=== PATIENT | male | born 1935 | race Caucasian/White ===

== ENCOUNTER 2017-11-18 05:26 | Inpatient (IN) | payer MEDICARE, OTHER, SELFPAY ==
[2017-11-05 13:20] VITALS: BP 139/77; PULSE 66; RESP 18; TEMP 36.9; O2SAT 96; BMI 45.0
--- NOTE | 2017-11-05 13:52 | RAD_ITS ---
STUDY: X-RAY CHEST REASON FOR EXAM: Male, 82 years old. 2 week history of cough. TECHNIQUE: PA and lateral views of the chest. COMPARISON: None. FINDINGS: Mild degree of increased markings at the lung bases worse at the right lung base suggestive of atelectasis and/or early infiltrate. There is no demonstrated pleural abnormality. Sternal cerclage wires and vascular clips are present from a prior sternotomy and coronary artery bypass graft procedure (CABG). Normal mediastinum and giovanny. Normal visualized pulmonary arteries. There is atherosclerotic calcification of the aortic arch with tortuosity. There are degenerative changes of the visualized thoracic spine. Normal visualized ribs, clavicles, and shoulders. There is no demonstrated abnormality of the visualized soft tissue structures of the upper abdomen. RAD/Chest PA and Lateral IMPRESSION: Increased markings at the lung bases worse on the right side suggestive of bibasilar atelectasis and/or early infiltrates follow-up is recommended. Electronically Signed: Saurav Boyer MD at 14:39 EST Tel [phone], Service support ,
--- NOTE | 2017-11-05 13:52 | SDCEKG_ITS ---
Test Reason : Blood Pressure : / mmHG Vent. Rate : 062 BPM Atrial Rate : 062 BPM P-R Int : 194 ms QRS Dur : 158 ms QT Int : 470 ms P-R-T Axes : 055 009 033 degrees QTc Int : 477 ms Normal sinus rhythm Right bundle branch block Abnormal ECG Confirmed by THERESA LAMBERT, NEAL ([id number]), order editor SUZANNE CALLAHAN ([id number]) on 11/07/2017 1:08:33 PM Referred By: Akin Kong Confirmed By:NEAL CARDENAS MD
[2017-11-05 14:41] LABS: Hematocrit 40.8 % (40-54); Mean Corp Hgb Conc 31.9 g/gl (32-36); Mean Corpuscular Hgb 28.8 pg (27.0-32.0); Mean Corpuscular Volume 90.5 fL (80-94); Mean Platelet Vol. 10.3 fl (6.2-12.0); Platelet Count 206 K/mm3 (150-450); RBC Distribution Width CV 14.7 % (11.6-14.6); RBC Distribution Width SD 48.6 fl (35.1-43.9); Red Blood Count 4.51 M/mm3 (4.6-6.2); Scan Indicated on CBC? Y/N NO; White Blood Count 7.2 K/mm3 (4.4-11.0)
[2017-11-05 14:54] LABS: Anion Gap 11 (5-15); BUN 21 mg/dL (7-18); BUN/Creat Ratio 15.1 RATIO (10-20); Calcium,Total 8.3 mg/dL (8.5-10.1); Chloride 106 mmol/L (98-107); Creatinine, Serum 1.39 mg/dL (0.70-1.30); EST Glomerular Filtration Rate 52 mL/min (>60); Est Glom Filt Rate - Afr Amer 63 mL/min (>60); Estimated Creatinine Clearance 38.97 ml/min; Glucose 162 mg/dL (70-110); Potassium 4.2 mmol/L (3.5-5.1); Sodium Level 140 mmol/L (136-145)
[2017-11-18] VITALS (14 sets, daily range): BP systolic 128–167; BP diastolic 52–94; PULSE 50–88; RESP 16–18; TEMP 36.3–36.7; O2SAT 95–100; BMI 45.0
[2017-11-18] MEDS: Celecoxib 200 MG Capsule 400 MG PO (06:23)
[2017-11-18] MEDS: Acetaminophen 500 MG Tablet 1000 MG PO ×3 (06:23→21:59)
[2017-11-18] MEDS: oxyCODONE HCl Cr 10 MG Tablet PO (06:23)
--- NOTE | 2017-11-18 07:01 | EKG12_ITS ---
Test Reason : CP Blood Pressure : / mmHG Vent. Rate : 053 BPM Atrial Rate : 053 BPM P-R Int : 148 ms QRS Dur : 142 ms QT Int : 500 ms P-R-T Axes : 016 023 023 degrees QTc Int : 469 ms Sinus bradycardia Right bundle branch block Septal infarct , age undetermined Abnormal ECG When compared with ECG of 18-NOV-2017 07:06, MANUAL COMPARISON REQUIRED, DATA IS UNCONFIRMED Confirmed by SOLO LAMBERT, NATHALIE ([id number]), web editor SUZANNE CALLAHAN ([id number]) on 11/26/2017 8:50:41 AM Referred By: Akin Kong Confirmed By:NATHALIE BANDA MD
--- NOTE | 2017-11-18 07:38 | OP.PCM_ITS ---
Report of Operation Date of Procedure: 11/18/17 Pre-Operative Diagnosis: Severe end-stage osteoarthritis left knee Post-Operative Diagnosis: Severe end-stage osteoarthritis left knee Surgery/Procedure Performed:: Total knee arthroplasty left Description of Surgical Findings:: Periarticular osteophytes, subchondral sclerosis and varus alignment consistent with tricompartmental osteoarthritis information technology coordinator: [place]cho[place] Type of Anesthesia:: General Anesthesiologist: Chris Haile Specimen's removed: Bone and soft tissue Estimated Blood Loss (mL): 100 Fluids Replaced: See anesthesia report Description of Procedure: Implants: [place] triathlon size 6 posterior stabilized femur, 6 tibia, 35 x 10 mm patella all cemented with Simplex. 9 mm posterior stabilized articulating surface Indications: Patient has severe end-stage osteoarthritis diagnosed via x-rays in the knee. They have failed all forms of conservative measures including activity modification, injections, anti-inflammatories, use of assistive device. The patient has pain that affects on a daily basis and prevents him from doing things that they enjoyed. They have elected to undergo the above procedure. The risks of the procedure were discussed at length and their questions were answered. Procedure description: The patient was greeted in the preoperative area. The left knee was then marked with a surgical marker. Patient was then taken to or [address]. They were administered a dose of antibiotics as well as tranexamic acid. Once adequate anesthesia was obtained and airway was secured to placed in supine position on the operating room table. A well-padded tourniquet was placed on the affected extremity. Leg was then prepped and draped in the usual sterile fashion from the knee down. Ioban was used on the skin. Surgical timeout was then performed and confirmed with all present. Six-inch Esmarch was used to examine the limb and tourniquet was then inflated to 250 mmHg. A longitudinal incision was then planned and carried out in the anterior aspect of the knee. The dissection was then carried the length of the incision the extensor mechanism was identified. Standard medial parapatellar arthrotomy was then performed revealing severe eburnation of bone and periarticular osteophytes. There is complete loss of cartilage especially in the medial compartment with varus alignment. Anterior fat pad was removed for visualization purposes and the anterior medial aspect of the tibia was skeletonized for exposure to the knee. The knee was then flexed the patella was inverted. Opening reamer was then used in the femur approximately 1 cm anterior to the attachment of the PCL. The intramedullary valgus wand was then placed in the femur set at 5? of valgus. The distal femoral cutting jig was then applied to the femur with anticipated resection of approximately 8 mm. This was then made with a oscillating saw. The sizing guide was then placed referencing off the posterior condyles and also reference off the epicondylar axis. This was measured and the appropriate size 4-in-1 cutting jig was then applied to the distal femur. Anterior posterior cuts were made followed by the anterior and posterior chamfer cuts. These bony pieces and fragments were removed and placed on the back table. Posterior retractor was then utilized and the tibia was subluxed anteriorly. Extramedullary tibial alignment jig was then applied to the tibia referencing off the medial one third of the tibial tubercle the anterior tibial spine the middle aspect of the tibiotalar joint. Also reference off patient's [place]. The tibial cutting jig was then pinned with anticipated resection of 2 mm off of the deficient medial tibial condyle. This cut was made with the oscillating saw. Once this was complete a laminar anti air warfare operations officer was utilized in both medial lateral meniscus were removed and a posterior capsular osteophytes were also removed. Posterior capsule release was performed in the posterior capsule as well as the geniculate arteries are treated with the aqua Libby. The tibia was incised and the appropriate sized tibial tray was then pinned. The femoral box cutting jig was then applied to the femur and the box was prepared removing a portion of the intercondylar notch. The femoral trial was then placed and the knee was trialed. Full flexion-extension were easily achieved. The knee seemed to balance quite nicely. Any remaining osteophytes were removed at this time. Once this was complete the patella was everted and the Dorcas patella reaming device was then utilized the patella was then placed in the appropriate jig and reamer was then used to remove approximately 9 mm of the undersurface of the patella. A soft tissue remaining was in the way was removed and patella trial was then placed listed maintain excellent tracking using the no thumbs technique. The tibial tray at this point was punched to accommodate the fins of the final implant. At this point cement was mixed on the back table. The trial components were removed and the knee was copiously irrigated. Did use a cocktail of injection for postoperative pain control. The final components were then cemented in the standard fashion and excess cement was removed with cement removal tools and patellar clamp is placed in the patella. As the cement had cured in full extension tourniquet was deflated and hemostasis was perfect with Bovie cautery as well as the aqua Manus. Needle is once again trialed with different size polyethylenes to ensure the full range of motion was achieved as well as excellent balancing ligamentously was achieved. At this point a quick Betadine bath was performed followed by copious irrigation. Final implant was then inserted locking mechanism was engaged and confirmed to be locked. The arthrotomy was then closed with #1 Vicryl aggravate type fashion interrupted. Subcutaneous tissue was closed with 0 Vicryl and surgical janiya were placed in the skin. A occlusive silver impregnated dressing was then applied followed by well-padded sterile dressing secured with an Reinier wrap. The patient was taken to the PACU in stable condition. No complications known at this time. Postoperatively we will maintain standard total knee postoperative protocol. The use of the physician photo studio assistant was integral during this procedure. They assisted with positioning placement of the tourniquet retracting closure and placement of the dressing. The procedure would have been much more difficult without their expertise and assistance - Complications None known - Admit VTE Documentation VTE Present on Admission: Yes VTE Mechan Device Prophylaxis: SCD's, Thigh High SEAN Hose VTE Pharm Prophylaxis ordered?: Yes
[2017-11-18] MEDS: Lactated Ringers 1,000 ML 125 ML IV ×2 (14:55→22:45)
[2017-11-18] MEDS: Aspirin 325 MG Tablet PO (14:55)
--- NOTE | 2017-11-18 14:56 | NURSING ---
computer in room not working, turned off, turned back on, sys aid placed
--- NOTE | 2017-11-18 16:02 | CASEMGMT ---
Social Work Note Updated by RN LYN Munguia - that pt is requesting TCU. Left vm for [facility] and vm on referral line. Will await a return phone call with confirmation. SW to continue to follow and assist with discharge planning. Plan: TBD. Maranda Lala, CAMPUS POLICE OFFICER RESUME SPECIALIST
--- NOTE | 2017-11-18 16:43 | CASEMGMT ---
Social Work Note Return phone call from [facility] stating that she can accept the pt on . Placed Transfer summary for orthopedics surgeon to sign on chart. SW to continue to follow and assist with discharge planning as needed. Plan: TCU for rehabilitation. Maranda Lala MSW PHOTOENGRAVING PROOFER
[2017-11-18] MEDS: Furosemide 40 MG Tablet PO (22:00)
[2017-11-18] MEDS: Senna/Docusate Sodium 1 Tablet 2 TABLET PO (22:00)
[2017-11-18] MEDS: Isosorbide Mononitrate 60 MG Tablet PO (22:01)
[2017-11-18] MEDS: Losartan Potassium 100 MG Tablet PO (22:01)
[2017-11-18] MEDS: Atenolol 50 MG Tablet PO (22:01)
[2017-11-19] MEDS: Ketorolac 15 MG/ML Vial IV (00:45)
[2017-11-19 03:00] VITALS: RESP 18; O2SAT 96
[2017-11-19 03:20] VITALS: BP 145/60; PULSE 62; RESP 18; TEMP 36.6; O2SAT 97
[2017-11-19] MEDS: Acetaminophen 500 MG Tablet 1000 MG PO ×3 (05:15→23:06)
[2017-11-19] MEDS: oxyCODONE 5 MG Tablet PO (05:15)
--- NOTE | 2017-11-19 08:02 | PN.ORTHO_ITS ---
Subjective: Patient sitting at bedside with his eating breakfast. Patient states pain is well-managed. Patient has no complaints, denies chest pain, shortness breath , calf pain, nausea vomiting. Objective: Dressing is clean dry intact. Vital signs labs within normal limits. Patient is neurovascular intact, afebrile. Negative signs and symptoms of DVT. Patient is no respiratory distress - Physical Exam General: Alert, Oriented x3, Cooperative HEENT: PERRLA Oral: Moist Mucosa Neurological: Cranial nerves II-XII grossly intact Psych/Mental Status: Normal Affect, Alert and oriented to time, place, person, mood and affect Vital Signs Temp Pulse Resp BP Pulse Ox 97.9 F 62 18 145/60 H 97 11/19/17 03:20 11/19/17 03:20 11/19/17 03:20 11/19/17 03:20 11/19/17 03:20 Oxygen Flow Rate 1 Oxygen Delivery Method CPAP Weight: 130.5 kg Body Mass Index (BMI) 45.0 Intake and Output for Last 24 Hours 11/17/17 11/18/17 11/19/17 23:59 23:59 23:59 Intake Total 3550 / 3550 1625 / 1625 Output Total 50 / 50 750 / 750 Balance 3500 / 3500 875 / 875 Assessment/Plan Status post left total knee arthroplasty Plan 1. Continue pain medications as prescribed 2. Begin physical therapy today, weight-bear as tolerated, with walker 3. Aspirin 325 mg 1 p.o. every 12 hours ?30 days for postop DVT prophylaxis 4. Possible discharge home tomorrow 5. Encourage incentive spirometry
[2017-11-19] MEDS: Aspirin 325 MG Tablet PO ×2 (08:12→17:42)
[2017-11-19 08:13] VITALS: BP 120/54; PULSE 60; RESP 18; TEMP 37.6; O2SAT 93
[2017-11-19] MEDS: Senna/Docusate Sodium 1 Tablet 2 TABLET PO ×2 (10:23→22:10)
[2017-11-19] MEDS: Ascorbic Acid 500 MG Tablet 1000 MG PO (10:23)
[2017-11-19] MEDS: Famotidine 20 MG Tablet PO (10:23)
[2017-11-19] MEDS: Furosemide 40 MG Tablet PO (10:23)
[2017-11-19] MEDS: Isosorbide Mononitrate 60 MG Tablet PO ×2 (10:23→22:10)
[2017-11-19 10:25] VITALS: PULSE 64
[2017-11-19 14:15] VITALS: BP 124/51; PULSE 69; RESP 18; TEMP 36.8; O2SAT 97
[2017-11-19 14:28] VITALS: BMI 45.0
[2017-11-19 20:15] VITALS: BP 131/61; PULSE 78; RESP 16; TEMP 36.8; O2SAT 93
[2017-11-19] MEDS: Losartan Potassium 100 MG Tablet PO (22:30)
[2017-11-19] MEDS: Atenolol 50 MG Tablet PO (23:05)
[2017-11-20] VITALS (7 sets, daily range): BP systolic 123–149; BP diastolic 58–81; PULSE 58–94; RESP 14–18; TEMP 36.6–37.1; O2SAT 94–98
[2017-11-20] MEDS: Acetaminophen 500 MG Tablet 1000 MG PO ×3 (06:20→22:23)
[2017-11-20] MEDS: oxyCODONE 5 MG Tablet PO ×2 (06:27→15:44)
[2017-11-20] MEDS: Ascorbic Acid 500 MG Tablet 1000 MG PO (09:38)
[2017-11-20] MEDS: Isosorbide Mononitrate 60 MG Tablet PO ×2 (09:38→22:23)
[2017-11-20] MEDS: Aspirin 325 MG Tablet PO ×2 (09:39→15:42)
[2017-11-20] MEDS: Famotidine 20 MG Tablet PO (09:41)
[2017-11-20] MEDS: Senna/Docusate Sodium 1 Tablet 2 TABLET PO ×2 (09:41→22:24)
[2017-11-20] MEDS: Furosemide 40 MG Tablet PO (09:41)
--- NOTE | 2017-11-20 13:05 | PCM.PN.ORT ---
Subjective: Patient sitting at lunch, pain well-managed, no other complaints. Patient ready for discharge to [facility] transitional care unit. Patient stable, must wait 1 additional day before discharge for insurance purposes. Objective: Dressings clean dry intact, vital signs labs within normal limits. Patient is afebrile, neurovascular is intact. Negative signs and symptoms of DVT. - Physical Exam General: Alert, Oriented x3, Cooperative HEENT: PERRLA Oral: Moist Mucosa Neurological: Cranial nerves II-XII grossly intact Psych/Mental Status: Normal Affect, Alert and oriented to time, place, person, mood and affect Vital Signs Temp Pulse Resp BP Pulse Ox 97.9 F 58 L 16 123/69 H 96 11/20/17 09:33 11/20/17 09:35 11/20/17 09:33 11/20/17 09:33 11/20/17 09:33 Oxygen Flow Rate 1 Oxygen Delivery Method Room Air Weight: 130.5 kg Body Mass Index (BMI) 45.0 Intake and Output for Last 24 Hours 11/18/17 11/19/17 11/20/17 23:59 23:59 23:59 Intake Total 3550 / 3550 1625 / 1625 Output Total 50 / 50 750 / 750 Balance 3500 / 3500 875 / 875 Assessment/Plan Status post left total knee arthroplasty Plan 1. Continue pain medications as prescribed 2. Continue physical therapy physical therapy today, weight-bear as tolerated, with walker 3. Aspirin 325 mg 1 p.o. every 12 hours ?30 days for postop DVT prophylaxis 4. Possible discharge to [facility] transitional care unit tomorrow 5. Encourage incentive spirometry
--- NOTE | 2017-11-20 13:20 | PCM.DC.TKR ---
Discharge Diet: No Restrictions Discharge Activity: May Not Drive, May Shower, Use Walker May shower in (days): 1 Ice area for (Minutes): 20 - each hour while awake. Weight Bearing Status: Weight bearing as tolerated Elevate: Operative Extremity Additional Activity Instructions:: Wear elastic stockings for 2 weeks after your surgery. Call your doctor if your incision/area has: Continuous Slow Oozing, Sudden Increased Bleeding, Increased Pain/ Swelling, Increased Redness, Foul Smelling Discharge Call your doctor if you observe: Fever of 101 or Higher, Coldness, Increased Pain - in extremity, Numbness or Tingling, Change in Color, Calf discomfort, Uncontrolled pain Change Dressing in (Days):: 9 - and daily as needed. Cleanse incision/area with: Soap & Water Allergies/Adverse Reactions: Allergies No Known Allergies Allergy (Verified 11/05/17 13:06) Medications to take at Discharge Ascorbic Acid [Vitamin C] 1,000 mg PO DAILY 11/05/17 Atenolol [Tenormin (beta maikol)] 50 mg PO QHS 11/05/17 Cholecalciferol (Vitamin D3) [Vitamin D3] 2,000 unit PO DAILY 11/05/17 Furosemide [Lasix] 40 mg PO DAILY 11/05/17 Isosorbide Mononitrate [Imdur] 60 mg PO BID 11/05/17 Lactobacillus Combo No.11 [Probiotic] 1 each PO DAILY 11/05/17 Losartan Potassium [Cozaar] 100 mg PO QHS 11/05/17 Meloxicam [Mobic] 15 mg PO DAILY 11/05/17 Methylsulfonylmethane [MSM] 1,200 mg PO DAILY 11/05/17 Omeprazole [Prilosec] 20 mg PO DAILY 11/05/17 Ubidecarenone/Vitamin E Mixed [Yox69-Fxu E 200 mg-20 Unit Sfg] 1 each PO DAILY 11/05/17 Acetaminophen [Tylenol] 1,000 mg PO Q8 #90 tab 11/20/17 Aspirin 325 mg PO BIDCM #60 tab 11/20/17 MorphINE [Ms Contin] 15 mg PO BID 7 Days #14 tab 11/20/17 Oxycodone [Oxyir] 5 - 10 mg PO Q6H PRN PRN 7 Days #60 tab 11/20/17 The following prescriptions were given: Oxycodone [Oxyir] 5 - 10 mg PO Q6H PRN PRN 7 Days #60 tab PRN Reason: Mod-Severe Pain (4-07/30) Acetaminophen [Tylenol] 1,000 mg PO Q8 #90 tab Aspirin 325 mg PO BIDCM #60 tab MorphINE [Ms Contin] 15 mg PO BID 7 Days #14 tab Primary Care Physician: Yo Peng Jr., MD [Primary Care Provider] - Please Follow Up With: Akin Kong, DO When: see pink sheet
[2017-11-20] MEDS: Atenolol 50 MG Tablet PO (22:23)
[2017-11-20] MEDS: Losartan Potassium 100 MG Tablet PO (22:23)
[2017-11-21 02:49] VITALS: BP 140/63; PULSE 64; RESP 14; TEMP 36.6; O2SAT 95
[2017-11-21] MEDS: Acetaminophen 500 MG Tablet 1000 MG PO ×2 (06:01→14:15)
[2017-11-21 07:05] VITALS: O2SAT 91
[2017-11-21 09:55] VITALS: BP 124/75; PULSE 60; RESP 18; TEMP 36.8; O2SAT 98
[2017-11-21] MEDS: Aspirin 325 MG Tablet PO (10:02)
[2017-11-21] MEDS: Senna/Docusate Sodium 1 Tablet 2 TABLET PO (10:02)
[2017-11-21] MEDS: Isosorbide Mononitrate 60 MG Tablet PO (10:02)
[2017-11-21] MEDS: Furosemide 40 MG Tablet PO (10:02)
[2017-11-21] MEDS: Famotidine 20 MG Tablet PO (10:02)
[2017-11-21] MEDS: Ascorbic Acid 500 MG Tablet 1000 MG PO (10:02)
[2017-11-21 14:36] VITALS: BP 126/72; PULSE 72; RESP 18; TEMP 36.7; O2SAT 97
== END 2017-11-21 14:37 | disposition skilled nursing facility (03) | DRG 470 ==
PROVIDERS: Admitting Provider Orthopaedic Surgery; Family Provider Internal Medicine; PCP Internal Medicine; Visit Provider Orthopaedic Surgery
PROC: 0SRD0J9 Replacement of Left Knee Joint with Synthetic Substitute, Cemented, Open Approach (ICD-10-PCS; CPT 27447; principal; 2017-11-18 06:50)
DX: M17.12 Unilateral primary osteoarthritis, left knee (principal); Z95.1 Presence of aortocoronary bypass graft; E66.01 Morbid (severe) obesity due to excess calories; Z68.42 Body mass index [BMI] 45.0-49.9, adult; I10 Essential (primary) hypertension; I25.10 Atherosclerotic heart disease of native coronary artery without angina pectoris; Z87.891 Personal history of nicotine dependence
CPT/HCPCS: 80048; 85027; 87081; 93005; 97110; 97116; 97162; 97165; 97530; 97535; J7120; J2405

== ENCOUNTER 2017-11-21 14:46 | Inpatient (IN) | payer MEDICARE, OTHER, SELFPAY ==
[2017-11-21 14:36] VITALS: BP 126/72
[2017-11-21 15:01] VITALS: BP 102/61; PULSE 62; RESP 20; TEMP 37; O2SAT 94
[2017-11-21 15:13] VITALS: BMI 44.7
[2017-11-21 16:05] VITALS: BMI 44.8
[2017-11-21] MEDS: oxyCODONE 5 MG Tablet PO (16:33)
[2017-11-21 16:41] VITALS: PULSE 60
[2017-11-21] MEDS: Aspirin 325 MG Tablet PO (18:09)
[2017-11-21] MEDS: Isosorbide Mononitrate 60 MG Tablet PO (18:09)
--- NOTE | 2017-11-21 18:10 | NURSING ---
notified dr. tre cruz swelling in left leg. order for doppler to [facility] in am
--- NOTE | 2017-11-21 19:43 | PCM.HP.STD ---
Problem List (1) Osteoarthritis of left knee Status: Chronic (2) Coronary artery disease Status: Chronic (3) Vitamin D deficiency Status: Chronic (4) Chronic systolic heart failure Status: Chronic (5) GERD (gastroesophageal reflux disease) Status: Chronic (6) Hypertension Status: Chronic (7) Myocardial infarction Status: Chronic (8) Atrial fibrillation Status: Chronic (9) Obstructive sleep apnea Status: Chronic (10) Prostate cancer Status: Chronic History of Present Illness Date of Admission: 11/21/17 Chief Complaint: Here for rehabilitation, strengthening, prior to discharge home with significant other. The patient is a 82 year old Male with below past medical history hospitalized for left total knee arthroplasty 11/18/[address] Akin Kong. 11/21/2017 Admit to TCU for rehabilitation, strengthening, prior to discharge home with significant other. Past Medical History Past Medical History (Chronic Problems): Chronic Problems Osteoarthritis of left knee (Chronic) Coronary artery disease (Chronic) Vitamin D deficiency (Chronic) Chronic systolic heart failure (Chronic) GERD (gastroesophageal reflux disease) (Chronic) Hypertension (Chronic) Myocardial infarction (Chronic) Atrial fibrillation (Chronic) Obstructive sleep apnea (Chronic) Prostate cancer (Chronic) Allergies No Known Allergies Allergy (Verified 11/05/17 13:06) Home Medications: Ambulatory Orders Medication Instructions Recorded Ascorbic Acid [Vitamin C] 1,000 mg PO DAILY 11/05/17 Atenolol [Tenormin (beta maikol)] 50 mg PO QHS 11/05/17 Cholecalciferol (Vitamin D3) 2,000 unit PO DAILY 11/05/17 [Vitamin D3] Furosemide [Lasix] 40 mg PO DAILY 11/05/17 Isosorbide Mononitrate [Imdur] 60 mg PO BID 11/05/17 Lactobacillus Combo No.11 1 each PO DAILY 11/05/17 [Probiotic] Losartan Potassium [Cozaar] 100 mg PO QHS 11/05/17 Meloxicam [Mobic] 15 mg PO DAILY 11/05/17 Methylsulfonylmethane [MSM] 1,200 mg PO DAILY 11/05/17 Omeprazole [Prilosec] 20 mg PO DAILY 11/05/17 Ubidecarenone/Vitamin E Mixed 1 each PO DAILY 11/05/17 [[id number]-Lvz E 200 mg-20 Unit Sfg] Acetaminophen [Tylenol] 1,000 mg PO Q8 #90 tab 11/20/17 Aspirin 325 mg PO BIDCM #60 tab 11/20/17 MorphINE [Ms Contin] 15 mg PO BID 7 Days #14 tab 11/20/17 Oxycodone [Oxyir] 5 - 10 mg PO Q6H PRN PRN 7 Days 11/20/17 #60 tab Surgical History: coronary bypass surgery, total knee arthroplasty - Left., - - Cardiac stents x 3. Psychiatric History: No pertinent psych hx Lives: Spouse/ Significant Other Smoking Status: Former smoker Tobacco Use: Non-smoker Alcohol: Occasional Drugs: None - *Family History Maternal History Items: No pertinent history Paternal History Items: No pertinent history Review of Systems Constitutional: Denies: Chills, Fever, Weight Change HEENT: Denies: Head Aches, Sinus Congestion, Sinus Drainage Cardiovascular: Denies: Chest Pain, Palpitations Respiratory: Denies: Cough, Shortness of breath at rest, Sputum production Gastrointestinal: Denies: Abdominal Pain, Nausea, Vomiting Genitourinary: Denies: Dysuria Musculoskeletal: Reports: Joint Pain - Left knee pain.. Denies: Joint Tenderness Skin: Denies: Rash, Wounds Neurological: Denies: Numbness, Tingling, Focal weakness Psychiatric: Denies: Anxiety, Depression, Homicidal Ideations, Suicidal Ideations Hematologic/ Lymphatic: Denies: Easy Bruising, Easy Bleeding VTE Information - Inpt Only VTE Present on Admission: No VTE Mechan Device Prophylaxis: Knee High SEAN Hose VTE Pharm Prophylaxis ordered?: Yes - Physical Exam General: Alert, Oriented x3, Cooperative HEENT: Atraumatic, PERRLA, EOMI, Normocephalic Neck: Supple, No JVD, Negative Carotid Bruits Lungs: Clear to auscultation, Normal air movement Cardiovascular: Regular rate, No murmurs Abdomen: Bowel Sounds Present, Soft, Non Tender Extremities: Capillary Refill Less than 3 Seconds, Edema - 2+ pitting edema LLE, 1+ pitting edema RLE. Skin: No rashes, No breakdown, Incision - Left knee clean, dry, intact. Musculoskeletal: No Tenderness to Palpation of Joints or Extremities Neurological: Cranial nerves II-XII grossly intact Psych/Mental Status: Normal Affect, Appropriate Vital Signs Temp Pulse Resp BP Pulse Ox 98.6 F 60 20 H 102/61 94 11/21/17 15:01 11/21/17 16:41 11/21/17 15:01 11/21/17 15:01 11/21/17 15:01 Oxygen Delivery Method Room Air Weight: 129.7 kg Body Mass Index (BMI) 44.7 Intake and Output for Last 24 Hours 11/19/17 11/20/17 11/21/17 23:59 23:59 23:59 Intake Total 360 / 360 Balance 360 / 360 Assessment/Plan 82 year old male with below past medical history hospitalized for left total knee arthroplasty 11/18/[address] Akin Kong, admitted to TCU for rehabilitation, strengthening, prior to discharge home with significant other. Debility - PT/OT. Pain - Tylenol 1000MG Q8H, MS Contin 15MG twice daily, Oxycodone 5-10MG Q6H PRN moderate to severe pain. Bowel - Miralax 17GM daily, Senna/colace 2 tablets BID, Dulcolax 10MG PO daily PRN, Magnesium citrate 300ML PO x 1 dose. Pneumonia vaccination - Administer Prevnar 13 and/or Pneumovax 23 as necessary. DVT prophylaxis - Aspirin 325MG BID. Vitamin C deficiency - Vitamin C 1000MG daily. Coronary Artery Disease - Atenolol 50MG QHS, Losartan 100MG QHS, Isosorbide MN 60MG BID. Vitamin D deficiency - D3 2000IU daily. Nutrition - Ensure Enlive 120ML 4x/day. Chronic systolic heart failure - Atenolol 50MG QHS, Losartan 100MG QHS, Isosorbide MN 60MG BID, Lasix 40MG daily. GI prophylaxis - Lactobacillus 1 tablet daily. Osteoarthritis - Meloxicam 15MG daily. GERD - Pantoprazole 20MG daily Edema - Doppler ultrasound of bilateral lower extremities in AM to evaluate for DVT.
--- NOTE | 2017-11-21 19:56 | HP.PCM_ITS ---
Problem List (1) Osteoarthritis of left knee Status: Chronic (2) Coronary artery disease Status: Chronic (3) Vitamin D deficiency Status: Chronic (4) Chronic systolic heart failure Status: Chronic (5) GERD (gastroesophageal reflux disease) Status: Chronic (6) Hypertension Status: Chronic (7) Myocardial infarction Status: Chronic (8) Atrial fibrillation Status: Chronic (9) Obstructive sleep apnea Status: Chronic (10) Prostate cancer Status: Chronic History of Present Illness Date of Admission: 11/21/17 Chief Complaint: Here for rehabilitation, strengthening, prior to discharge home with significant other. The patient is a 82 year old Male with below past medical history hospitalized for left total knee arthroplasty 11/18/[address] Akin Kong. 11/21/2017 Admit to TCU for rehabilitation, strengthening, prior to discharge home with significant other. Past Medical History Past Medical History (Chronic Problems): Chronic Problems Osteoarthritis of left knee (Chronic) Coronary artery disease (Chronic) Vitamin D deficiency (Chronic) Chronic systolic heart failure (Chronic) GERD (gastroesophageal reflux disease) (Chronic) Hypertension (Chronic) Myocardial infarction (Chronic) Atrial fibrillation (Chronic) Obstructive sleep apnea (Chronic) Prostate cancer (Chronic) Allergies No Known Allergies Allergy (Verified 11/05/17 13:06) Home Medications: Ambulatory Orders Medication Instructions Recorded Ascorbic Acid [Vitamin C] 1,000 mg PO DAILY 11/05/17 Atenolol [Tenormin (beta maikol)] 50 mg PO QHS 11/05/17 Cholecalciferol (Vitamin D3) 2,000 unit PO DAILY 11/05/17 [Vitamin D3] Furosemide [Lasix] 40 mg PO DAILY 11/05/17 Isosorbide Mononitrate [Imdur] 60 mg PO BID 11/05/17 Lactobacillus Combo No.11 1 each PO DAILY 11/05/17 [Probiotic] Losartan Potassium [Cozaar] 100 mg PO QHS 11/05/17 Meloxicam [Mobic] 15 mg PO DAILY 11/05/17 Methylsulfonylmethane [MSM] 1,200 mg PO DAILY 11/05/17 Omeprazole [Prilosec] 20 mg PO DAILY 11/05/17 Ubidecarenone/Vitamin E Mixed 1 each PO DAILY 11/05/17 [[id number]-[id number] E 200 mg-20 Unit Sfg] Acetaminophen [Tylenol] 1,000 mg PO Q8 #90 tab 11/20/17 Aspirin 325 mg PO BIDCM #60 tab 11/20/17 MorphINE [Ms Contin] 15 mg PO BID 7 Days #14 tab 11/20/17 Oxycodone [Oxyir] 5 - 10 mg PO Q6H PRN PRN 7 Days 11/20/17 #60 tab Surgical History: coronary bypass surgery, total knee arthroplasty - Left., - - Cardiac stents x 3. Psychiatric History: No pertinent psych hx Lives: Spouse/ Significant Other Smoking Status: Former smoker Tobacco Use: Non-smoker Alcohol: Occasional Drugs: None - *Family History Maternal History Items: No pertinent history Paternal History Items: No pertinent history Review of Systems Constitutional: Denies: Chills, Fever, Weight Change HEENT: Denies: Head Aches, Sinus Congestion, Sinus Drainage Cardiovascular: Denies: Chest Pain, Palpitations Respiratory: Denies: Cough, Shortness of breath at rest, Sputum production Gastrointestinal: Denies: Abdominal Pain, Nausea, Vomiting Genitourinary: Denies: Dysuria Musculoskeletal: Reports: Joint Pain - Left knee pain.. Denies: Joint Tenderness Skin: Denies: Rash, Wounds Neurological: Denies: Numbness, Tingling, Focal weakness Psychiatric: Denies: Anxiety, Depression, Homicidal Ideations, Suicidal Ideations Hematologic/ Lymphatic: Denies: Easy Bruising, Easy Bleeding VTE Information - Inpt Only VTE Present on Admission: No VTE Mechan Device Prophylaxis: Knee High SEAN Hose VTE Pharm Prophylaxis ordered?: Yes - Physical Exam General: Alert, Oriented x3, Cooperative HEENT: Atraumatic, PERRLA, EOMI, Normocephalic Neck: Supple, No JVD, Negative Carotid Bruits Lungs: Clear to auscultation, Normal air movement Cardiovascular: Regular rate, No murmurs Abdomen: Bowel Sounds Present, Soft, Non Tender Extremities: Capillary Refill Less than 3 Seconds, Edema - 2+ pitting edema LLE , 1+ pitting edema RLE. Skin: No rashes, No breakdown, Incision - Left knee clean, dry, intact. Musculoskeletal: No Tenderness to Palpation of Joints or Extremities Neurological: Cranial nerves II-XII grossly intact Psych/Mental Status: Normal Affect, Appropriate Vital Signs Temp Pulse Resp BP Pulse Ox 98.6 F 60 20 H 102/61 94 11/21/17 15:01 11/21/17 16:41 11/21/17 15:01 11/21/17 15:01 11/21/17 15:01 Oxygen Delivery Method Room Air Weight: 129.7 kg Body Mass Index (BMI) 44.7 Intake and Output for Last 24 Hours 11/19/17 11/20/17 11/21/17 23:59 23:59 23:59 Intake Total 360 / 360 Balance 360 / 360 Assessment/Plan 82 year old male with below past medical history hospitalized for left total knee arthroplasty 11/18/[address] Akin Kong, admitted to TCU for rehabilitation, strengthening, prior to discharge home with significant other. * Debility - PT/OT. * Pain - Tylenol 1000MG Q8H, MS Contin 15MG twice daily, Oxycodone 5-10MG Q6H PRN moderate to severe pain. * Bowel - Miralax 17GM daily, Senna/colace 2 tablets BID, Dulcolax 10MG PO daily PRN, Magnesium citrate 300ML PO x 1 dose. * Pneumonia vaccination - Administer Prevnar 13 and/or Pneumovax 23 as necessary. * DVT prophylaxis - Aspirin 325MG BID. * Vitamin C deficiency - Vitamin C 1000MG daily. * Coronary Artery Disease - Atenolol 50MG QHS, Losartan 100MG QHS, Isosorbide MN 60MG BID. * Vitamin D deficiency - D3 2000IU daily. * Nutrition - Ensure Enlive 120ML 4x/day. * Chronic systolic heart failure - Atenolol 50MG QHS, Losartan 100MG QHS, Isosorbide MN 60MG BID, Lasix 40MG daily. * GI prophylaxis - Lactobacillus 1 tablet daily. * Osteoarthritis - Meloxicam 15MG daily. * GERD - Pantoprazole 20MG daily * Edema - Doppler ultrasound of bilateral lower extremities in AM to evaluate for DVT.
[2017-11-21] MEDS: Atenolol 50 MG Tablet PO (21:46)
[2017-11-21] MEDS: Acetaminophen 500 MG Tablet 1000 MG PO (21:46)
[2017-11-21] MEDS: Losartan Potassium 100 MG Tablet PO (21:46)
[2017-11-21] MEDS: Magnesium Citrate 300 ML PO (22:12)
--- NOTE | 2017-11-22 05:59 | VDLE_ITS ---
Reason For Study: swelling RIGHT LEFT GSV is normal. CFV is compressible, spontaneous, phasic, CFV is compressible, spontaneous, phasic, competent, and demonstrates normal competent and demonstrates normal augmentation. augmentation. FV is compressible, spontaneous, phasic, FV is compressible, spontaneous, phasic, competent and demonstrates normal competent and demonstrates normal augmentation. augmentation. POP V & T/P trunk spontaneous, phasic, POP V is compressible, spontaneous, phasic, competent and demonstrates normal competent and demonstrates normal augmentation. PT unable to tolerate augmentation. compressions due to leg tenderness, had to T/P Trunk is compressible. rely on color doppler in POPV, T/P trunk & PTV is compressible. PTV. RT PerV is compressible. Procedure Unable to visualize PerV. Exam performed portable in patient room. GSV was harvested for CABG. The study was technically difficult. The exam was diagnostic. A preliminary report was called and/or faxed to Dr. Infante @ 3:00 pm. Interpretation Summary Deep veins of the lower extremities are patent bilaterally. There is no evidence of deep vein thrombosis on either side. Valvular competence appears intact within the proximal deep venous systems bilaterally. The right greater saphenous vein appears patent and compressible segmentally. The left greater saphenous vein is absent, having been previously harvested. The left peroneal vein was not visualized. Ordering Physician: Jesus Infante Referring Physician: Akin Kong Performed By: Toma Landry, LEANNA, RVT
[2017-11-22] MEDS: Acetaminophen 500 MG Tablet 1000 MG PO ×3 (06:09→21:06)
[2017-11-22] MEDS: Furosemide 40 MG Tablet PO (06:09)
[2017-11-22] MEDS: Pantoprazole Sodium 20 MG Tablet PO (06:09)
[2017-11-22] MEDS: Meloxicam 15 MG Tablet PO (06:09)
[2017-11-22] MEDS: Isosorbide Mononitrate 60 MG Tablet PO ×2 (06:11→17:58)
[2017-11-22 06:44] LABS: Absolute Lymphocyte Count 2.06 X10^3/ul (0.83-4.51); Absolute Neutrophil Count 4.1 X10^3/uL (2.0-7.7); Basophil# 0.03 X10^3/uL; Basophil% 0.4 % (0-1); Eosinophil# 0.58 X10^3/uL; Eosinophils% 7.4 % (0-5); Hematocrit 32.7 % (40-54); Hemoglobin 10.6 g/dl (13.0-16.5); Lymphocyte # 2.06 X10^3/ul (4.0); Lymphocyte % 26.3 % (19-41); Mean Corp Hgb Conc 32.4 g/gl (32-36); Mean Corpuscular Hgb 29.5 pg (27.0-32.0); Mean Corpuscular Volume 91.1 fL (80-94); Mean Platelet Vol. 10.4 fl (6.2-12.0); Monocyte# 1.02 X10^3/uL; Neutrophil # 4.13 X10^3/uL (2.7-7.7); Neutrophil % 52.8 % (47-70); Platelet Count 180 K/mm3 (150-450); RBC Distribution Width CV 14.6 % (11.6-14.6); RBC Distribution Width SD 48.3 fl (35.1-43.9); Red Blood Count 3.59 M/mm3 (4.6-6.2); White Blood Count 7.8 K/mm3 (4.4-11.0)
[2017-11-22 06:45] LABS: POSITIVE COUNT NO; POSITIVE DIFFERENTIAL NO; POSITIVE MORPHOLOGY NO
[2017-11-22 07:20] LABS: Anion Gap 7 (5-15); BUN 25 mg/dL (7-18); BUN/Creat Ratio 16.9 RATIO (10-20); Calcium,Total 8.4 mg/dL (8.5-10.1); Chloride 103 mmol/L (98-107); Creatinine, Serum 1.48 mg/dL (0.70-1.30); EST Glomerular Filtration Rate 48 mL/min (>60); Est Glom Filt Rate - Afr Amer 59 mL/min (>60); Glucose 133 mg/dL (70-110); Sodium Level 139 mmol/L (136-145)
[2017-11-22] MEDS: Aspirin 325 MG Tablet PO ×2 (09:02→17:58)
[2017-11-22] MEDS: Ascorbic Acid 500 MG Tablet 1000 MG PO (09:02)
[2017-11-22] MEDS: oxyCODONE 5 MG Tablet PO (09:05)
[2017-11-22 10:00] VITALS: PULSE 71; RESP 16; O2SAT 96
[2017-11-22] MEDS: Tuberculin,Purif.prot.deriv. 50 TU/ML Vial 5 ML ID (14:15)
[2017-11-22 16:00] VITALS: BP 110/55; PULSE 66; RESP 18; TEMP 36.8; O2SAT 96
[2017-11-22] MEDS: Senna/Docusate Sodium 1 Tablet 2 TABLET PO (17:58)
[2017-11-22] MEDS: Atenolol 50 MG Tablet PO (21:06)
[2017-11-22] MEDS: Losartan Potassium 100 MG Tablet PO (21:06)
[2017-11-23] MEDS: Pantoprazole Sodium 20 MG Tablet PO (06:48)
[2017-11-23] MEDS: Isosorbide Mononitrate 60 MG Tablet PO ×2 (06:49→17:18)
[2017-11-23] MEDS: Meloxicam 15 MG Tablet PO (06:49)
[2017-11-23] MEDS: Furosemide 40 MG Tablet PO (06:49)
[2017-11-23] MEDS: Acetaminophen 500 MG Tablet 1000 MG PO ×3 (06:49→20:37)
[2017-11-23] MEDS: Senna/Docusate Sodium 1 Tablet 2 TABLET PO ×2 (06:50→17:18)
[2017-11-23] MEDS: Aspirin 325 MG Tablet PO ×2 (08:07→17:18)
[2017-11-23] MEDS: Ascorbic Acid 500 MG Tablet 1000 MG PO (08:07)
[2017-11-23 15:43] VITALS: BP 143/57; PULSE 61; RESP 16; TEMP 36.8; O2SAT 94
[2017-11-23] MEDS: Atenolol 50 MG Tablet PO (20:37)
[2017-11-23] MEDS: Losartan Potassium 100 MG Tablet PO (20:38)
[2017-11-24] MEDS: oxyCODONE 5 MG Tablet PO (05:19)
[2017-11-24] MEDS: Senna/Docusate Sodium 1 Tablet 2 TABLET PO ×2 (05:19→18:24)
[2017-11-24] MEDS: Isosorbide Mononitrate 60 MG Tablet PO ×2 (05:20→18:24)
[2017-11-24] MEDS: Meloxicam 15 MG Tablet PO (05:20)
[2017-11-24] MEDS: Furosemide 40 MG Tablet PO (05:20)
[2017-11-24] MEDS: Pantoprazole Sodium 20 MG Tablet PO (05:20)
[2017-11-24] MEDS: Polyethylene Glycol 3350 17 GM PACKET PO (05:20)
[2017-11-24] MEDS: Acetaminophen 500 MG Tablet 1000 MG PO ×3 (05:21→20:45)
[2017-11-24] MEDS: Aspirin 325 MG Tablet PO ×2 (08:21→18:24)
[2017-11-24] MEDS: Ascorbic Acid 500 MG Tablet 1000 MG PO (08:21)
--- NOTE | 2017-11-24 11:42 | NURSING ---
Pt requesting that MS Contin be discontinued, Dr. Infante updated and N.O. received.
[2017-11-24 15:56] VITALS: BP 152/58; PULSE 53; RESP 20; TEMP 36.2; O2SAT 91
[2017-11-24] MEDS: Losartan Potassium 100 MG Tablet PO (20:45)
[2017-11-24] MEDS: Atenolol 50 MG Tablet PO (20:46)
[2017-11-25] MEDS: Polyethylene Glycol 3350 17 GM PACKET PO (05:44)
[2017-11-25] MEDS: Senna/Docusate Sodium 1 Tablet 2 TABLET PO ×2 (05:49→17:17)
[2017-11-25] MEDS: Acetaminophen 500 MG Tablet 1000 MG PO ×3 (05:49→21:00)
[2017-11-25] MEDS: oxyCODONE 5 MG Tablet PO ×3 (05:49→22:35)
[2017-11-25] MEDS: Furosemide 40 MG Tablet PO (05:49)
[2017-11-25] MEDS: Pantoprazole Sodium 20 MG Tablet PO (05:49)
[2017-11-25] MEDS: Meloxicam 15 MG Tablet PO (05:49)
[2017-11-25] MEDS: Isosorbide Mononitrate 60 MG Tablet PO ×2 (05:49→17:17)
[2017-11-25] MEDS: Ascorbic Acid 500 MG Tablet 1000 MG PO (08:15)
[2017-11-25] MEDS: Aspirin 325 MG Tablet PO ×2 (08:15→17:17)
[2017-11-25 09:41] VITALS: PULSE 53; RESP 18; O2SAT 98
--- NOTE | 2017-11-25 10:35 | NURSING ---
Dr Kong office notified of needing DC staple date. Ok to remove on 11/29/17
[2017-11-25 15:53] VITALS: BP 141/64; PULSE 59; RESP 18; TEMP 36.7; O2SAT 95
[2017-11-25] MEDS: Atenolol 50 MG Tablet PO (21:00)
[2017-11-25] MEDS: Losartan Potassium 100 MG Tablet PO (21:00)
[2017-11-26] MEDS: Polyethylene Glycol 3350 17 GM PACKET PO (06:16)
[2017-11-26] MEDS: Acetaminophen 500 MG Tablet 1000 MG PO ×3 (06:16→21:07)
[2017-11-26] MEDS: Isosorbide Mononitrate 60 MG Tablet PO ×2 (06:17→17:50)
[2017-11-26] MEDS: Furosemide 40 MG Tablet PO (06:17)
[2017-11-26] MEDS: Meloxicam 15 MG Tablet PO (06:17)
[2017-11-26] MEDS: Senna/Docusate Sodium 1 Tablet 2 TABLET PO ×2 (06:17→17:50)
[2017-11-26] MEDS: Pantoprazole Sodium 20 MG Tablet PO (06:17)
[2017-11-26] MEDS: Aspirin 325 MG Tablet PO ×2 (08:25→17:50)
[2017-11-26] MEDS: Ascorbic Acid 500 MG Tablet 1000 MG PO (08:25)
--- NOTE | 2017-11-26 11:37 | PCM.PN.RX ---
<Jose Daniel Newell D - Last Filed: 11/26/17 11:37> Progress Note - Pharmacy Subjective: TCU Admission Objective: Allergies No Known Allergies Allergy (Verified 11/05/17 13:06) Home Medications Medication Instructions Recorded Ascorbic Acid [Vitamin C] 1,000 mg PO DAILY 11/05/17 Atenolol [Tenormin (beta walter)] 50 mg PO QHS 11/05/17 Cholecalciferol (Vitamin D3) 2,000 unit PO DAILY 11/05/17 [Vitamin D3] Furosemide [Lasix] 40 mg PO DAILY 11/05/17 Isosorbide Mononitrate [Imdur] 60 mg PO BID 11/05/17 Lactobacillus Combo No.11 1 each PO DAILY 11/05/17 [Probiotic] Losartan Potassium [Cozaar] 100 mg PO QHS 11/05/17 Meloxicam [Mobic] 15 mg PO DAILY 11/05/17 Methylsulfonylmethane [MSM] 1,200 mg PO DAILY 11/05/17 Omeprazole [Prilosec] 20 mg PO DAILY 11/05/17 Ubidecarenone/Vitamin E Mixed 1 each PO DAILY 11/05/17 [[id number]-[id number] E 200 mg-20 Unit Sfg] Acetaminophen [Tylenol] 1,000 mg PO Q8 #90 tab 11/20/17 Aspirin 325 mg PO BIDCM #60 tab 11/20/17 MorphINE [Ms Contin] 15 mg PO BID 7 Days #14 tab 11/20/17 Oxycodone [Oxyir] 5 - 10 mg PO Q6H PRN PRN 7 Days 11/20/17 #60 tab Current Medications Generic Name Dose Route Start Last Admin Trade Name Freq PRN Reason Stop Dose Admin Acetaminophen 1,000 mg 11/21/17 22:00 11/26/17 06:16 Tylenol PO 1,000 mg Q8 DERRICK Administration Ascorbic Acid 1,000 mg 11/22/17 08:00 11/26/17 08:25 Vitamin C PO 1,000 mg DAILY@0800 DERRICK Administration Aspirin 325 mg 11/21/17 17:00 11/26/17 08:25 Aspirin PO 12/21/17 17:01 325 mg BIDCM DERRICK Administration Atenolol 50 mg 11/21/17 22:00 11/25/17 21:00 Tenormin (Beta Walter) PO 50 mg QHS DERRICK Administration Bisacodyl 10 mg 11/21/17 19:57 Dulcolax PO DAILY PRN Constipation Cholecalciferol 2,000 unit 11/22/17 08:00 11/26/17 08:25 Vitamin D PO 2,000 unit DAILY@0800 [facility] Administration Furosemide 40 mg 11/22/17 06:00 11/26/17 06:17 Lasix PO 40 mg DAILY [facility] Administration Isosorbide Mononitrate 60 mg 11/21/17 18:00 11/26/17 06:17 Imdur PO 60 mg BID [facility] Administration Lactobacillus Acidophilus 1 tablet 11/22/17 06:00 11/26/17 06:17 Acidophilus PO 1 tablet DAILY [facility] Administration Losartan Potassium 100 mg 11/21/17 22:00 11/25/17 21:00 Cozaar PO 100 mg QHS [facility] Administration Meloxicam 15 mg 11/22/17 06:00 11/26/17 06:17 Mobic PO 15 mg DAILY [facility] Administration Nutritional Formula (Lactose Free) 120 ml 11/21/17 17:00 11/26/17 06:17 Ensure Enlive PO Not Given 4X/DAY [facility] Oxycodone HCl 5 - 10 mg 11/21/17 15:00 11/25/17 22:35 Oxyir PO 10 mg Q6H PRN PRN Administration MOD-SEVERE PAIN (4-10/10) Pantoprazole Sodium 20 mg 11/22/17 06:00 11/26/17 06:17 Protonix PO 20 mg DAILY [facility] Administration Polyethylene Glycol 17 gm 11/22/17 06:00 11/26/17 06:16 Miralax PO 17 gm DAILY [facility] Administration Senna/Docusate Sodium 2 tablet 11/22/17 06:00 11/26/17 06:17 Senokot-S, Esha-Colace PO 2 tablet BID [facility] Administration Tuberculin PPD 5 tu 11/29/17 10:00 Tubersol, Aplisol, Ppd ID 11/29/17 10:01 X1 ONE Problem List Osteoarthritis of left knee (Chronic) Coronary artery disease (Chronic) Vitamin D deficiency (Chronic) Chronic systolic heart failure (Chronic) GERD (gastroesophageal reflux disease) (Chronic) Hypertension (Chronic) Myocardial infarction (Chronic) Atrial fibrillation (Chronic) Obstructive sleep apnea (Chronic) Prostate cancer (Chronic) Vital Signs Temp Pulse Resp BP Pulse Ox 98.1 F 59 L 18 141/64 H 95 11/25/17 15:53 11/25/17 15:53 11/25/17 15:53 11/25/17 15:53 11/25/17 15:53 Oxygen Delivery Method Room Air Weight: 129.7 kg Body Mass Index (BMI) 44.7 Sodium 139 mmol/L (136-145) 11/22/17 06:10 Potassium 4.0 mmol/L (3.5-5.1) 11/22/17 06:10 Chloride 103 mmol/L (98-107) 11/22/17 06:10 Carbon Dioxide 29.0 mmol/L (21.0-32.0) 11/22/17 06:10 Anion Gap 7 (5-15) 11/22/17 06:10 BUN 25 mg/dL (7-18) H 11/22/17 06:10 Creatinine 1.48 mg/dL (0.70-1.30) H 11/22/17 06:10 Est GFR (MDRD) Af Amer 59 mL/min (>60) L 11/22/17 06:10 Est GFR (MDRD) Non-Af 48 mL/min (>60) L 11/22/17 06:10 BUN/Creatinine Ratio 16.9 RATIO (10-20) 11/22/17 06:10 Glucose 133 mg/dL (70-110) H 11/22/17 06:10 Assessment/Plan: 1) Pain APAP, meloxicam, oxycodone prn. Continue to monitor daily pain scores prn medication use. 2) CAD/CHF ASA, atenolol, isosorbide, furosemide. Avg BP/HR within goal range, K wnl, BUN/SCr at baseline. Continue to monitor BP/HR, renal function, electrolytes, s/s chest pain. 3) DVT PPx ASA twice daily until 12/21. Continue to monitor s/s bleeding/clot. 4) GI Pantoprazole, lactobacillus. Continue to monitor s/s GI distress. 5) Nutrition Ensure, C, D. Continue to monitor clinically. Psychotropic Medications: None Unnecessary Medications: None Bowel Regimen: 6) Senna/s, PEG, prn bisacodyl. Continue to monitor prn medication use, for constipation/diarrhea. Date of Note:: 11/26/17 - Provider Comments Provider responsibility: Provider responsible to enter orders to implement recommendations <Jesus Infante Chi - Last Filed: 11/26/17 17:42> Progress Note - Pharmacy Subjective: [] Objective: Allergies No Known Allergies Allergy (Verified 11/05/17 13:06) Home Medications Medication Instructions Recorded Ascorbic Acid [Vitamin C] 1,000 mg PO DAILY 11/05/17 Atenolol [Tenormin (beta walter)] 50 mg PO QHS 11/05/17 Cholecalciferol (Vitamin D3) 2,000 unit PO DAILY 11/05/17 [Vitamin D3] Furosemide [Lasix] 40 mg PO DAILY 11/05/17 Isosorbide Mononitrate [Imdur] 60 mg PO BID 11/05/17 Lactobacillus Combo No.11 1 each PO DAILY 11/05/17 [Probiotic] Losartan Potassium [Cozaar] 100 mg PO QHS 11/05/17 Meloxicam [Mobic] 15 mg PO DAILY 11/05/17 Methylsulfonylmethane [MSM] 1,200 mg PO DAILY 11/05/17 Omeprazole [Prilosec] 20 mg PO DAILY 11/05/17 Ubidecarenone/Vitamin E Mixed 1 each PO DAILY 11/05/17 [[id number]-Tsm E 200 mg-20 Unit Sfg] Acetaminophen [Tylenol] 1,000 mg PO Q8 #90 tab 11/20/17 Aspirin 325 mg PO BIDCM #60 tab 11/20/17 MorphINE [Ms Contin] 15 mg PO BID 7 Days #14 tab 11/20/17 Oxycodone [Oxyir] 5 - 10 mg PO Q6H PRN PRN 7 Days 11/20/17 #60 tab Current Medications Generic Name Dose Route Start Last Admin Trade Name Freq PRN Reason Stop Dose Admin Acetaminophen 1,000 mg 11/21/17 22:00 11/26/17 13:53 Tylenol PO 1,000 mg Q8 DERRICK Administration Ascorbic Acid 1,000 mg 11/22/17 08:00 11/26/17 08:25 Vitamin C PO 1,000 mg DAILY@0800 DERR[facility] Administration Aspirin 325 mg 11/21/17 17:00 11/26/17 08:25 Aspirin PO 12/21/17 17:01 325 mg BIDCM [facility] Administration Atenolol 50 mg 11/21/17 22:00 02/05/18 21:00 Tenormin (Beta Walter) PO 50 mg QHS DERRICK Administration Bisacodyl 10 mg 11/21/17 19:57 Dulcolax PO DAILY PRN Constipation Cholecalciferol 2,000 unit 11/22/17 08:00 11/26/17 08:25 Vitamin D PO 2,000 unit DAILY@0800 [facility]ERR[facility] Administration Furosemide 40 mg 11/22/17 06:00 11/26/17 06:17 Lasix PO 40 mg DAILY [facility] Administration Isosorbide Mononitrate 60 mg 11/21/17 18:00 11/26/17 06:17 Imdur PO 60 mg BID [facility]ERR[facility] Administration Lactobacillus Acidophilus 1 tablet 11/22/17 06:00 11/26/17 06:17 Acidophilus PO 1 tablet DAILY [facility] Administration Losartan Potassium 100 mg 11/21/17 22:00 11/25/17 21:00 Cozaar PO 100 mg QHS [facility]ERRICK Administration Meloxicam 15 mg 11/22/17 06:00 11/26/17 06:17 Mobic PO 15 mg DAILY [facility] Administration Nutritional Formula (Lactose Free) 120 ml 11/21/17 17:00 11/26/17 12:56 Ensure Enlive PO 120 ml 4X/DAY [facility] Administration Oxycodone HCl 5 - 10 mg 11/21/17 15:00 11/26/17 13:52 Oxyir PO 10 mg Q6H PRN PRN Administration MOD-SEVERE PAIN (4-10/10) Pantoprazole Sodium 20 mg 11/22/17 06:00 11/26/17 06:17 Protonix PO 20 mg DAILY [facility] Administration Polyethylene Glycol 17 gm 11/22/17 06:00 11/26/17 06:16 Miralax PO 17 gm DAILY [facility] Administration Senna/Docusate Sodium 2 tablet 11/22/17 06:00 11/26/17 06:17 Senokot-S, Esha-Colace PO 2 tablet BID [facility] Administration Tuberculin PPD 5 tu 11/29/17 10:00 Tubersol, Aplisol, Ppd ID 11/29/17 10:01 X1 ONE Problem List Obstructive sleep apnea (Chronic) Atrial fibrillation (Chronic) Myocardial infarction (Chronic) Hypertension (Chronic) GERD (gastroesophageal reflux disease) (Chronic) Chronic systolic heart failure (Chronic) Vitamin D deficiency (Chronic) Coronary artery disease (Chronic) Prostate cancer (Chronic) Osteoarthritis of left knee (Chronic) Vital Signs Temp Pulse Resp BP Pulse Ox 97.0 F L 67 20 H 138/69 H 97 11/26/17 15:57 11/26/17 15:57 11/26/17 15:57 11/26/17 15:57 11/26/17 15:57 Oxygen Delivery Method Room Air Weight: 129.3 kg Body Mass Index (BMI) 44.7 Sodium 139 mmol/L (136-145) 11/22/17 06:10 Potassium 4.0 mmol/L (3.5-5.1) 11/22/17 06:10 Chloride 103 mmol/L (98-107) 11/22/17 06:10 Carbon Dioxide 29.0 mmol/L (21.0-32.0) 11/22/17 06:10 Anion Gap 7 (5-15) 11/22/17 06:10 BUN 25 mg/dL (7-18) H 11/22/17 06:10 Creatinine 1.48 mg/dL (0.70-1.30) H 11/22/17 06:10 Est GFR (MDRD) Af Amer 59 mL/min (>60) L 11/22/17 06:10 Est GFR (MDRD) Non-Af 48 mL/min (>60) L 11/22/17 06:10 BUN/Creatinine Ratio 16.9 RATIO (10-20) 11/22/17 06:10 Glucose 133 mg/dL (70-110) H 11/22/17 06:10 Assessment/Plan: Psychotropic Medications: Unnecessary Medications: Bowel Regimen: - Provider Comments Provider responsibility: Provider responsible to enter orders to implement recommendations Provider Comments to Recommendations by Pharmacy: Agree
--- NOTE | 2017-11-26 11:45 | PHA.CONS_ITS ---
<Jose Daniel Newell D - Last Filed: 11/26/17 11:37> Progress Note - Pharmacy Subjective: TCU Admission Objective: Allergies No Known Allergies Allergy (Verified 11/05/17 13:06) Home Medications Medication Instructions Recorded Ascorbic Acid [Vitamin C] 1,000 mg PO DAILY 11/05/17 Atenolol [Tenormin (beta walter)] 50 mg PO QHS 11/05/17 Cholecalciferol (Vitamin D3) 2,000 unit PO DAILY 11/05/17 [Vitamin D3] Furosemide [Lasix] 40 mg PO DAILY 11/05/17 Isosorbide Mononitrate [Imdur] 60 mg PO BID 11/05/17 Lactobacillus Combo No.11 1 each PO DAILY 11/05/17 [Probiotic] Losartan Potassium [Cozaar] 100 mg PO QHS 11/05/17 Meloxicam [Mobic] 15 mg PO DAILY 11/05/17 Methylsulfonylmethane [MSM] 1,200 mg PO DAILY 11/05/17 Omeprazole [Prilosec] 20 mg PO DAILY 11/05/17 Ubidecarenone/Vitamin E Mixed 1 each PO DAILY 11/05/17 [Fmi92-Nfx E 200 mg-20 Unit Sfg] Acetaminophen [Tylenol] 1,000 mg PO Q8 #90 tab 11/20/17 Aspirin 325 mg PO BIDCM #60 tab 11/20/17 MorphINE [Ms Contin] 15 mg PO BID 7 Days #14 tab 11/20/17 Oxycodone [Oxyir] 5 - 10 mg PO Q6H PRN PRN 7 Days 11/20/17 #60 tab Current Medications Generic Name Dose Route Start Last Admin Trade Name Freq PRN Reason Stop Dose Admin Acetaminophen 1,000 mg 11/21/17 22:00 11/26/17 06:16 Tylenol PO 1,000 mg Q8 DERRICK Administration Ascorbic Acid 1,000 mg 11/22/17 08:00 11/26/17 08:25 Vitamin C PO 1,000 mg DAILY@0800 DERRICK Administration Aspirin 325 mg 11/21/17 17:00 11/26/17 08:25 Aspirin PO 12/21/17 17:01 325 mg BIDCM DERRICK Administration Atenolol 50 mg 11/21/17 22:00 11/25/17 21:00 Tenormin (Beta Walter) PO 50 mg QHS DERRICK Administration Bisacodyl 10 mg 11/21/17 19:57 Dulcolax PO DAILY PRN Constipation Cholecalciferol 2,000 unit 11/22/17 08:00 11/26/17 08:25 Vitamin D PO 2,000 unit DAILY@0800 [facility] Administration Furosemide 40 mg 11/22/17 06:00 11/26/17 06:17 Lasix PO 40 mg DAILY [facility] Administration Isosorbide Mononitrate 60 mg 11/21/17 18:00 11/26/17 06:17 Imdur PO 60 mg BID [facility] Administration Lactobacillus Acidophilus 1 tablet 11/22/17 06:00 11/26/17 06:17 Acidophilus PO 1 tablet DAILY [facility] Administration Losartan Potassium 100 mg 11/21/17 22:00 11/25/17 21:00 Cozaar PO 100 mg QHS [facility] Administration Meloxicam 15 mg 11/22/17 06:00 11/26/17 06:17 Mobic PO 15 mg DAILY [facility] Administration Nutritional Formula (Lactose Free) 120 ml 11/21/17 17:00 11/26/17 06:17 Ensure Enlive PO Not Given 4X/DAY [facility] Oxycodone HCl 5 - 10 mg 11/21/17 15:00 11/25/17 22:35 Oxyir PO 10 mg Q6H PRN PRN Administration MOD-SEVERE PAIN (4-10/10) Pantoprazole Sodium 20 mg 11/22/17 06:00 11/26/17 06:17 Protonix PO 20 mg DAILY [facility] Administration Polyethylene Glycol 17 gm 11/22/17 06:00 11/26/17 06:16 Miralax PO 17 gm DAILY [facility] Administration Senna/Docusate Sodium 2 tablet 11/22/17 06:00 11/26/17 06:17 Senokot-S, Esha-Colace PO 2 tablet BID [facility] Administration Tuberculin PPD 5 tu 11/29/17 10:00 Tubersol, Aplisol, Ppd ID 11/29/17 10:01 X1 ONE Problem List Osteoarthritis of left knee (Chronic) Coronary artery disease (Chronic) Vitamin D deficiency (Chronic) Chronic systolic heart failure (Chronic) GERD (gastroesophageal reflux disease) (Chronic) Hypertension (Chronic) Myocardial infarction (Chronic) Atrial fibrillation (Chronic) Obstructive sleep apnea (Chronic) Prostate cancer (Chronic) Vital Signs Temp Pulse Resp BP Pulse Ox 98.1 F 59 L 18 141/64 H 95 11/25/17 15:53 11/25/17 15:53 11/25/17 15:53 11/25/17 15:53 11/25/17 15:53 Oxygen Delivery Method Room Air Weight: 129.7 kg Body Mass Index (BMI) 44.7 Sodium 139 mmol/L (136-145) 11/22/17 06:10 Potassium 4.0 mmol/L (3.5-5.1) 11/22/17 06:10 Chloride 103 mmol/L (98-107) 11/22/17 06:10 Carbon Dioxide 29.0 mmol/L (21.0-32.0) 11/22/17 06:10 Anion Gap 7 (5-15) 11/22/17 06:10 BUN 25 mg/dL (7-18) H 11/22/17 06:10 Creatinine 1.48 mg/dL (0.70-1.30) H 11/22/17 06:10 Est GFR (MDRD) Af Amer 59 mL/min (>60) L 11/22/17 06:10 Est GFR (MDRD) Non-Af 48 mL/min (>60) L 11/22/17 06:10 BUN/Creatinine Ratio 16.9 RATIO (10-20) 11/22/17 06:10 Glucose 133 mg/dL (70-110) H 11/22/17 06:10 Assessment/Plan: 1) Pain APAP, meloxicam, oxycodone prn. Continue to monitor daily pain scores prn medication use. 2) CAD/CHF ASA, atenolol, isosorbide, furosemide. Avg BP/HR within goal range, K wnl, BUN/SCr at baseline. Continue to monitor BP/HR, renal function, electrolytes, s/ s chest pain. 3) DVT PPx ASA twice daily until 12/21. Continue to monitor s/s bleeding/clot. 4) GI Pantoprazole, lactobacillus. Continue to monitor s/s GI distress. 5) Nutrition Ensure, C, D. Continue to monitor clinically. Psychotropic Medications: None Unnecessary Medications: None Bowel Regimen: 6) Senna/s, PEG, prn bisacodyl. Continue to monitor prn medication use, for constipation/diarrhea. Date of Note:: 11/26/17 - Provider Comments Provider responsibility: Provider responsible to enter orders to implement recommendations <Jesus Infante Chi - Last Filed: 11/26/17 17:42> Progress Note - Pharmacy Subjective: [] Objective: Allergies No Known Allergies Allergy (Verified 11/05/17 13:06) Home Medications Medication Instructions Recorded Ascorbic Acid [Vitamin C] 1,000 mg PO DAILY 11/05/17 Atenolol [Tenormin (beta waltre)] 50 mg PO QHS 11/05/17 Cholecalciferol (Vitamin D3) 2,000 unit PO DAILY 11/05/17 [Vitamin D3] Furosemide [Lasix] 40 mg PO DAILY 11/05/17 Isosorbide Mononitrate [Imdur] 60 mg PO BID 11/05/17 Lactobacillus Combo No.11 1 each PO DAILY 11/05/17 [Probiotic] Losartan Potassium [Cozaar] 100 mg PO QHS 11/05/17 Meloxicam [Mobic] 15 mg PO DAILY 11/05/17 Methylsulfonylmethane [MSM] 1,200 mg PO DAILY 11/05/17 Omeprazole [Prilosec] 20 mg PO DAILY 11/05/17 Ubidecarenone/Vitamin E Mixed 1 each PO DAILY 11/05/17 [[id number]-Ynp E 200 mg-20 Unit Sfg] Acetaminophen [Tylenol] 1,000 mg PO Q8 #90 tab 11/20/17 Aspirin 325 mg PO BIDCM #60 tab 11/20/17 MorphINE [Ms Contin] 15 mg PO BID 7 Days #14 tab 11/20/17 Oxycodone [Oxyir] 5 - 10 mg PO Q6H PRN PRN 7 Days 11/20/17 #60 tab Current Medications Generic Name Dose Route Start Last Admin Trade Name Freq PRN Reason Stop Dose Admin Acetaminophen 1,000 mg 11/21/17 22:00 11/26/17 13:53 Tylenol PO 1,000 mg Q8 DERRICK Administration Ascorbic Acid 1,000 mg 11/22/17 08:00 11/26/17 08:25 Vitamin C PO 1,000 mg DAILY@0800 DERRICK Administration Aspirin 325 mg 11/21/17 17:00 11/26/17 08:25 Aspirin PO 12/21/17 17:01 325 mg BIDCM [facility] Administration Atenolol 50 mg 11/21/17 22:00 02/05/18 21:00 Tenormin (Beta Walter) PO 50 mg QHS DERRICK Administration Bisacodyl 10 mg 11/21/17 19:57 Dulcolax PO DAILY PRN Constipation Cholecalciferol 2,000 unit 11/22/17 08:00 11/26/17 08:25 Vitamin D PO 2,000 unit DAILY@0800 DERRICK Administration Furosemide 40 mg 11/22/17 06:00 11/26/17 06:17 Lasix PO 40 mg DAILY [facility]ERR[facility] Administration Isosorbide Mononitrate 60 mg 11/21/17 18:00 11/26/17 06:17 Imdur PO 60 mg BID DERRICK Administration Lactobacillus Acidophilus 1 tablet 11/22/17 06:00 11/26/17 06:17 Acidophilus PO 1 tablet DAILY [facility]ERR[facility] Administration Losartan Potassium 100 mg 11/21/17 22:00 11/25/17 21:00 Cozaar PO 100 mg QHS DERRICK Administration Meloxicam 15 mg 11/22/17 06:00 11/26/17 06:17 Mobic PO 15 mg DAILY [facility] Administration Nutritional Formula (Lactose Free) 120 ml 11/21/17 17:00 11/26/17 12:56 Ensure Enlive PO 120 ml 4X/DAY [facility] Administration Oxycodone HCl 5 - 10 mg 11/21/17 15:00 11/26/17 13:52 Oxyir PO 10 mg Q6H PRN PRN Administration MOD-SEVERE PAIN (4-10/10) Pantoprazole Sodium 20 mg 11/22/17 06:00 11/26/17 06:17 Protonix PO 20 mg DAILY [facility]ERRICK Administration Polyethylene Glycol 17 gm 11/22/17 06:00 11/26/17 06:16 Miralax PO 17 gm DAILY [facility]ERR[facility] Administration Senna/Docusate Sodium 2 tablet 11/22/17 06:00 11/26/17 06:17 Senokot-S, Esha-Colace PO 2 tablet BID [facility] Administration Tuberculin PPD 5 tu 11/29/17 10:00 Tubersol, Aplisol, Ppd ID 11/29/17 10:01 X1 ONE Problem List Obstructive sleep apnea (Chronic) Atrial fibrillation (Chronic) Myocardial infarction (Chronic) Hypertension (Chronic) GERD (gastroesophageal reflux disease) (Chronic) Chronic systolic heart failure (Chronic) Vitamin D deficiency (Chronic) Coronary artery disease (Chronic) Prostate cancer (Chronic) Osteoarthritis of left knee (Chronic) Vital Signs Temp Pulse Resp BP Pulse Ox 97.0 F L 67 20 H 138/69 H 97 11/26/17 15:57 11/26/17 15:57 11/26/17 15:57 11/26/17 15:57 11/26/17 15:57 Oxygen Delivery Method Room Air Weight: 129.3 kg Body Mass Index (BMI) 44.7 Sodium 139 mmol/L (136-145) 11/22/17 06:10 Potassium 4.0 mmol/L (3.5-5.1) 11/22/17 06:10 Chloride 103 mmol/L (98-107) 11/22/17 06:10 Carbon Dioxide 29.0 mmol/L (21.0-32.0) 11/22/17 06:10 Anion Gap 7 (5-15) 11/22/17 06:10 BUN 25 mg/dL (7-18) H 11/22/17 06:10 Creatinine 1.48 mg/dL (0.70-1.30) H 11/22/17 06:10 Est GFR (MDRD) Af Amer 59 mL/min (>60) L 11/22/17 06:10 Est GFR (MDRD) Non-Af 48 mL/min (>60) L 11/22/17 06:10 BUN/Creatinine Ratio 16.9 RATIO (10-20) 11/22/17 06:10 Glucose 133 mg/dL (70-110) H 11/22/17 06:10 Assessment/Plan: Psychotropic Medications: Unnecessary Medications: Bowel Regimen: - Provider Comments Provider responsibility: Provider responsible to enter orders to implement recommendations Provider Comments to Recommendations by Pharmacy: Agree
[2017-11-26] MEDS: oxyCODONE 5 MG Tablet PO ×2 (13:52→21:11)
[2017-11-26 15:57] VITALS: BP 138/69; PULSE 67; RESP 20; TEMP 36.1; O2SAT 97
--- NOTE | 2017-11-26 17:55 | NURSING ---
Pt voiced concern about feeling constipated, talked to pt about his bm protocol and things available. Agreed to try warm prune juice at this time, does not want laxative or suppository yet.
[2017-11-26] MEDS: Atenolol 50 MG Tablet PO (21:07)
[2017-11-26] MEDS: Losartan Potassium 100 MG Tablet PO (21:07)
[2017-11-27] MEDS: Isosorbide Mononitrate 60 MG Tablet PO ×2 (06:07→17:10)
[2017-11-27] MEDS: Senna/Docusate Sodium 1 Tablet 2 TABLET PO ×2 (06:07→17:10)
[2017-11-27] MEDS: Pantoprazole Sodium 20 MG Tablet PO (06:07)
[2017-11-27] MEDS: Meloxicam 15 MG Tablet PO (06:07)
[2017-11-27] MEDS: Acetaminophen 500 MG Tablet 1000 MG PO ×3 (06:07→21:30)
[2017-11-27] MEDS: Furosemide 40 MG Tablet PO (06:07)
[2017-11-27] MEDS: Polyethylene Glycol 3350 17 GM PACKET PO (06:07)
[2017-11-27] MEDS: Aspirin 325 MG Tablet PO ×2 (08:27→17:10)
[2017-11-27] MEDS: Ascorbic Acid 500 MG Tablet 1000 MG PO (08:29)
[2017-11-27] MEDS: oxyCODONE 5 MG Tablet PO ×3 (08:30→21:30)
[2017-11-27 10:00] VITALS: PULSE 70; RESP 18; O2SAT 97
--- NOTE | 2017-11-27 10:45 | CASEMGMT ---
Plan of care meeting held. Resident present as well as resident significant other. No discharge date set at this time. Resident to continue with further care and treatment on the Transitional Care Unit at this time. Resident plans to discharge home with significant other at time of discharge. Resident plans to follow up with [facility] outpatient PT at time of discharge. Support given. Will continue to follow. Radha THURSTON, TECHNICAL BUSINESS SYSTEMS ANALYST
--- NOTE | 2017-11-27 13:47 | CASEMGMT ---
Brief interview for mental status (BIMS) and resident mood interview (PHQ-9) completed on this day. BIMS score 1515. PHQ-9 score 01/14
[2017-11-27 16:00] VITALS: BP 134/64; PULSE 61; RESP 18; TEMP 36.7; O2SAT 97
--- NOTE | 2017-11-27 16:43 | CHAPLAIN ---
Type of Pastoral Visit _x__ Initial Visit ___ Follow-up Visit ___ On-call Visit ___ General Patient Visit ___ Spiritual Assessment ___ Family Conference ___ Bereavement ___ Rapid Response ___ Code Blue ___ Other (describe below) Pastoral Care Referral From _x__ Patient ___ Family ___ Nurse ___ Physician ___ Injection Molder ___ Checkerer Hand ___ Other (describe below) Sacrament/Intervention ___ Active listening ___ Anointing ___ Anglican ___ Bereavement ___ Communion ___ Pinky exploration ___ ___ Life review ___ Prayer ___ Reconciliation ___ Sacrament of Sick _x__ Supportive presence ___ Wedding ___ Other (describe below) Pastoral Comments spouse of patient was with him; pt is non committal about describing how he is doing and feeling; pt did not have much to say nor did the spouse; offered support for the future if desired
[2017-11-27] MEDS: Atenolol 50 MG Tablet PO (21:30)
[2017-11-27] MEDS: Losartan Potassium 100 MG Tablet PO (21:30)
[2017-11-28] MEDS: oxyCODONE 5 MG Tablet PO ×4 (04:04→23:26)
[2017-11-28 05:53] LABS: Absolute Lymphocyte Count 2.28 X10^3/ul (0.83-4.51); Basophil# 0.06 X10^3/uL; Basophil% 0.9 % (0-1); Eosinophils% 10.2 % (0-5); Hematocrit 30.8 % (40-54); Hemoglobin 9.8 g/dl (13.0-16.5); Lymphocyte # 2.28 X10^3/ul (4.0); Lymphocyte % 33.4 % (19-41); Mean Corp Hgb Conc 31.8 g/gl (32-36); Mean Corpuscular Hgb 29.3 pg (27.0-32.0); Mean Corpuscular Volume 92.2 fL (80-94); Mean Platelet Vol. 9.8 fl (6.2-12.0); Monocyte# 0.72 X10^3/uL; Monocyte% 10.5 % (0-10); Neutrophil # 3.03 X10^3/uL (2.7-7.7); Neutrophil % 44.4 % (47-70); Platelet Count 249 K/mm3 (150-450); RBC Distribution Width CV 14.8 % (11.6-14.6); RBC Distribution Width SD 50.1 fl (35.1-43.9); Red Blood Count 3.34 M/mm3 (4.6-6.2); White Blood Count 6.8 K/mm3 (4.4-11.0)
[2017-11-28 06:02] LABS: POSITIVE COUNT NO; POSITIVE DIFFERENTIAL NO; POSITIVE MORPHOLOGY NO
[2017-11-28 06:19] LABS: Anion Gap 10 (5-15); BUN 24 mg/dL (7-18); BUN/Creat Ratio 18.6 RATIO (10-20); Calcium,Total 7.8 mg/dL (8.5-10.1); Chloride 108 mmol/L (98-107); Creatinine, Serum 1.29 mg/dL (0.70-1.30); EST Glomerular Filtration Rate 57 mL/min (>60); Est Glom Filt Rate - Afr Amer 69 mL/min (>60); Estimated Creatinine Clearance 41.99 ml/min; Glucose 111 mg/dL (74-106); Potassium 4.6 mmol/L (3.5-5.1); Sodium Level 143 mmol/L (136-145)
[2017-11-28] MEDS: Polyethylene Glycol 3350 17 GM PACKET PO (06:43)
[2017-11-28] MEDS: Furosemide 40 MG Tablet PO (06:48)
[2017-11-28] MEDS: Senna/Docusate Sodium 1 Tablet 2 TABLET PO ×2 (06:48→17:03)
[2017-11-28] MEDS: Pantoprazole Sodium 20 MG Tablet PO (06:48)
[2017-11-28] MEDS: Isosorbide Mononitrate 60 MG Tablet PO ×2 (06:48→17:04)
[2017-11-28] MEDS: Meloxicam 15 MG Tablet PO (06:48)
[2017-11-28] MEDS: Acetaminophen 500 MG Tablet 1000 MG PO ×3 (06:48→21:49)
[2017-11-28] MEDS: Ascorbic Acid 500 MG Tablet 1000 MG PO (08:15)
[2017-11-28] MEDS: Aspirin 325 MG Tablet PO ×2 (08:16→17:04)
[2017-11-28 10:00] VITALS: PULSE 82; RESP 18; O2SAT 95
--- NOTE | 2017-11-28 10:47 | NURSING ---
Per Dr. Kong, nursing staff may d/c janiya to incision on 11/29/17, patient does not need to come to office.
[2017-11-28 16:00] VITALS: BP 125/52; PULSE 60; RESP 20; TEMP 36.6; O2SAT 96
[2017-11-28] MEDS: Losartan Potassium 100 MG Tablet PO (21:49)
[2017-11-28] MEDS: Atenolol 50 MG Tablet PO (21:49)
[2017-11-29] MEDS: Polyethylene Glycol 3350 17 GM PACKET PO (05:34)
[2017-11-29] MEDS: oxyCODONE 5 MG Tablet PO ×2 (05:34→13:39)
[2017-11-29] MEDS: Isosorbide Mononitrate 60 MG Tablet PO ×2 (05:38→17:15)
[2017-11-29] MEDS: Senna/Docusate Sodium 1 Tablet 2 TABLET PO ×2 (05:38→17:15)
[2017-11-29] MEDS: Pantoprazole Sodium 20 MG Tablet PO (05:38)
[2017-11-29] MEDS: Meloxicam 15 MG Tablet PO (05:38)
[2017-11-29] MEDS: Acetaminophen 500 MG Tablet 1000 MG PO ×3 (05:38→20:01)
[2017-11-29] MEDS: Furosemide 40 MG Tablet PO (05:38)
--- NOTE | 2017-11-29 07:35 | NURSING ---
31 janiya to RT knee removed this AM. Pt tolerated procedure well. No drainage noted, well approximated. Incision cleansed with NS and DSD applied. Call light in reach.
[2017-11-29] MEDS: Ascorbic Acid 500 MG Tablet 1000 MG PO (08:34)
[2017-11-29] MEDS: Aspirin 325 MG Tablet PO ×2 (08:34→17:15)
[2017-11-29] MEDS: Tuberculin,Purif.prot.deriv. 50 TU/ML Vial 5 ML ID (11:27)
[2017-11-29 16:00] VITALS: BP 149/66; PULSE 59; RESP 20; TEMP 36.7; O2SAT 98
[2017-11-29 19:50] VITALS: BP 110/47; PULSE 60; RESP 15; TEMP 36.8; O2SAT 95
[2017-11-29] MEDS: Atenolol 50 MG Tablet PO (20:01)
[2017-11-29] MEDS: Losartan Potassium 100 MG Tablet PO (20:01)
[2017-11-30] MEDS: oxyCODONE 5 MG Tablet PO ×4 (01:37→20:43)
[2017-11-30] MEDS: Senna/Docusate Sodium 1 Tablet 2 TABLET PO ×2 (07:30→17:22)
[2017-11-30] MEDS: Isosorbide Mononitrate 60 MG Tablet PO ×2 (07:30→17:23)
[2017-11-30] MEDS: Pantoprazole Sodium 20 MG Tablet PO ×2 (07:30)
[2017-11-30] MEDS: Polyethylene Glycol 3350 17 GM PACKET PO (07:33)
[2017-11-30] MEDS: Furosemide 40 MG Tablet PO (07:33)
[2017-11-30] MEDS: Meloxicam 15 MG Tablet PO (07:34)
[2017-11-30] MEDS: Acetaminophen 500 MG Tablet 1000 MG PO ×3 (07:35→20:40)
[2017-11-30] MEDS: Ascorbic Acid 500 MG Tablet 1000 MG PO (08:28)
[2017-11-30] MEDS: Aspirin 325 MG Tablet PO ×2 (08:28→17:23)
[2017-11-30 10:00] VITALS: PULSE 75; RESP 18; O2SAT 96
[2017-11-30 15:40] VITALS: BP 146/47; PULSE 56; RESP 20; TEMP 36.1; O2SAT 93
[2017-11-30] MEDS: Losartan Potassium 100 MG Tablet PO (20:40)
[2017-11-30] MEDS: Atenolol 50 MG Tablet PO (20:40)
[2017-12-01] MEDS: Acetaminophen 500 MG Tablet 1000 MG PO ×3 (05:37→20:54)
[2017-12-01] MEDS: Senna/Docusate Sodium 1 Tablet 2 TABLET PO ×2 (05:38→17:07)
[2017-12-01] MEDS: Isosorbide Mononitrate 60 MG Tablet PO ×2 (05:38→17:06)
[2017-12-01] MEDS: Furosemide 40 MG Tablet PO (05:38)
[2017-12-01] MEDS: Polyethylene Glycol 3350 17 GM PACKET PO (05:38)
[2017-12-01] MEDS: Meloxicam 15 MG Tablet PO (05:38)
[2017-12-01] MEDS: oxyCODONE 5 MG Tablet PO ×3 (05:41→20:55)
[2017-12-01] MEDS: Aspirin 325 MG Tablet PO ×2 (08:49→17:06)
[2017-12-01] MEDS: Ascorbic Acid 500 MG Tablet 1000 MG PO (08:49)
[2017-12-01 10:00] VITALS: PULSE 88; RESP 18; O2SAT 97
[2017-12-01 15:29] VITALS: BP 133/58; PULSE 55; RESP 18; TEMP 36.6; O2SAT 94
[2017-12-01] MEDS: Losartan Potassium 100 MG Tablet PO (20:54)
[2017-12-01] MEDS: Atenolol 50 MG Tablet PO (20:54)
[2017-12-02] MEDS: oxyCODONE 5 MG Tablet PO ×4 (03:55→23:40)
[2017-12-02] MEDS: Furosemide 40 MG Tablet PO (05:46)
[2017-12-02] MEDS: Polyethylene Glycol 3350 17 GM PACKET PO (05:46)
[2017-12-02] MEDS: Pantoprazole Sodium 20 MG Tablet PO (05:46)
[2017-12-02] MEDS: Meloxicam 15 MG Tablet PO (05:46)
[2017-12-02] MEDS: Isosorbide Mononitrate 60 MG Tablet PO ×2 (05:46→17:22)
[2017-12-02] MEDS: Senna/Docusate Sodium 1 Tablet 2 TABLET PO ×2 (05:46→17:22)
[2017-12-02] MEDS: Acetaminophen 500 MG Tablet 1000 MG PO ×3 (05:46→21:40)
[2017-12-02] MEDS: Ascorbic Acid 500 MG Tablet 1000 MG PO (07:58)
[2017-12-02] MEDS: Aspirin 325 MG Tablet PO ×2 (07:58→17:22)
[2017-12-02 10:00] VITALS: PULSE 51; RESP 18; O2SAT 98
--- NOTE | 2017-12-02 11:20 | CASEMGMT ---
Social Work: Met with patient in room as patient was asking to speak with a social work faculty member. Patient's significant other, Ella, also in room. Patient verbalizing desire to be discharged tomorrow. Patient states he feels he is moving well and is comfortable returning home with assistance from Ella. Patient verifies that he already has all needed DME in the home. Patient would like outpatient PT at [facility]. Discussed patient's desire to be discharged home tomorrow with Lea PT and Ayse OT, both feel that patient is safe for D/C. ASAD Low and TAMARA Marquez also aware. TC o [facility] outpatient PT. Spoke with Tara. Outpatient PT scheduled for 12/05/17 at 1:30pm PT. Tara Rosa to obtain the order from Dr. Kong. Spoke with patient in room. Patient aware of outpatient therapy time and date. All D/C planning questions answered and D/C complete. PLAN: Patient to be discharged home tomorrow with outpatient PT at [facility]. ANN Salgado
[2017-12-02 16:00] VITALS: BP 159/54; PULSE 66; RESP 20; TEMP 36.6; O2SAT 94
[2017-12-02] MEDS: Atenolol 50 MG Tablet PO (21:40)
[2017-12-02] MEDS: Losartan Potassium 100 MG Tablet PO (21:40)
--- NOTE | 2017-12-02 21:54 | PCM.DC ---
- Discharge Diagnoses Current Active Problems: Current Active and Chronic Problems Obstructive sleep apnea (Chronic) Atrial fibrillation (Chronic) Myocardial infarction (Chronic) Hypertension (Chronic) GERD (gastroesophageal reflux disease) (Chronic) Chronic systolic heart failure (Chronic) Vitamin D deficiency (Chronic) Coronary artery disease (Chronic) Prostate cancer (Chronic) Osteoarthritis of left knee (Chronic) You will use the following diet at home:: No restrictions, Regular Your food should be the consistency of: Regular Your liquids should be the consistency of: Regular/Thin Discharge Activity: Return to Normal Activity, May Shower, Use Walker Weight Bearing Status: Weight bearing as tolerated Call your doctor if you observe: Fever of 101 or Higher, Inability to urinate, Inability to have a bowel movement, Shortness of breath, Chest pain, Uncontrolled pain Allergies/Adverse Reactions: Allergies No Known Allergies Allergy (Verified 11/05/17 13:06) Medications to take at Discharge Ascorbic Acid [Vitamin C] 1,000 mg PO DAILY 11/05/17 Atenolol [Tenormin (beta maikol)] 50 mg PO QHS 11/05/17 Cholecalciferol (Vitamin D3) [Vitamin D3] 2,000 unit PO DAILY 11/05/17 Furosemide [Lasix] 40 mg PO DAILY 11/05/17 Isosorbide Mononitrate [Imdur] 60 mg PO BID 11/05/17 Lactobacillus Combo No.11 [Probiotic] 1 each PO DAILY 11/05/17 Losartan Potassium [Cozaar] 100 mg PO QHS 11/05/17 Meloxicam [Mobic] 15 mg PO DAILY 11/05/17 Omeprazole [Prilosec] 20 mg PO DAILY 11/05/17 Acetaminophen [Tylenol] 1,000 mg PO Q8 #90 tab 11/20/17 Aspirin 325 mg PO BIDCM #36 tab 12/02/17 Oxycodone [Oxyir] 5 - 10 mg PO Q6H PRN PRN 7 Days #30 tab 12/02/17 Polyethylene Glycol 3350 [Miralax] 17 gm PO DAILY #30 packet 12/02/17 Senna/Docusate Sodium [Senokot-S] 2 tab PO BID #60 tab 12/02/17 The following prescriptions were given: Oxycodone [Oxyir] 5 - 10 mg PO Q6H PRN PRN 7 Days #30 tab PRN Reason: Mod-Severe Pain (4-07/30) Polyethylene Glycol 3350 [Miralax] 17 gm PO DAILY #30 packet Aspirin 325 mg PO BIDCM #36 tab Senna/Docusate Sodium [Senokot-S] 2 tab PO BID #60 tab Primary Care Physician: Yo Peng Jr., MD [Primary Care Provider] - Please follow up with your Primary Care Physician in: 1 week. Please Follow Up With: Akin Kong DO When: 2 weeks. Please Follow Up With: Physical Therapy (Scotty Bautista PT) When: 1 week. Proposed Discharge Date: 12/03/17
--- NOTE | 2017-12-02 21:56 | PCM.DC.SUM ---
Discharge Date and Diagnosis Date of Admission: 11/21/17 Date of Discharge: 12/03/17 - Secondary Discharge Diagnosis Chronic Problems Obstructive sleep apnea (Chronic) Atrial fibrillation (Chronic) Myocardial infarction (Chronic) Hypertension (Chronic) GERD (gastroesophageal reflux disease) (Chronic) Chronic systolic heart failure (Chronic) Vitamin D deficiency (Chronic) Coronary artery disease (Chronic) Prostate cancer (Chronic) Osteoarthritis of left knee (Chronic) Hospital Course and Treatment Imaging Results: 11/21/17 15:40 Diet: Regular Diet Diet Comments: cardiac Operations: None Procedures: None Summary of Care Provided: The patient is a 82 year old Male with below past medical history hospitalized for left total knee arthroplasty 11/18/[address] Akin Kong, admitted to TCU for rehabilitation, strengthening. Will discharge home with significant other. Will have outpatient physical therapy. Discharge Diet: No Restrictions Discharge Activity: Return to Normal Activity, May Shower, Use Walker Weight Bearing Status: Weight bearing as tolerated Call your doctor if you observe: Fever of 101 or Higher, Inability to urinate, Inability to have a bowel movement, Shortness of breath, Chest pain, Uncontrolled pain Home Medications: Medications to take at Discharge Ascorbic Acid [Vitamin C] 1,000 mg PO DAILY 11/05/17 Atenolol [Tenormin (beta maikol)] 50 mg PO QHS 11/05/17 Cholecalciferol (Vitamin D3) [Vitamin D3] 2,000 unit PO DAILY 11/05/17 Furosemide [Lasix] 40 mg PO DAILY 11/05/17 Isosorbide Mononitrate [Imdur] 60 mg PO BID 11/05/17 Lactobacillus Combo No.11 [Probiotic] 1 each PO DAILY 11/05/17 Losartan Potassium [Cozaar] 100 mg PO QHS 11/05/17 Meloxicam [Mobic] 15 mg PO DAILY 11/05/17 Omeprazole [Prilosec] 20 mg PO DAILY 11/05/17 Acetaminophen [Tylenol] 1,000 mg PO Q8 #90 tab 11/20/17 Aspirin 325 mg PO BIDCM #36 tab 12/02/17 Oxycodone [Oxyir] 5 - 10 mg PO Q6H PRN PRN 7 Days #30 tab 12/02/17 Polyethylene Glycol 3350 [Miralax] 17 gm PO DAILY #30 packet 12/02/17 Senna/Docusate Sodium [Senokot-S] 2 tab PO BID #60 tab 12/02/17 Following Prescrptions Were Given to Patient: Oxycodone [Oxyir] 5 - 10 mg PO Q6H PRN PRN 7 Days #30 tab PRN Reason: Mod-Severe Pain (-07/30) Polyethylene Glycol 3350 [Miralax] 17 gm PO DAILY #30 packet Aspirin 325 mg PO BIDCM #36 tab Senna/Docusate Sodium [Senokot-S] 2 tab PO BID #60 tab Primary Care Physician: Yo Peng Jr., MD [Primary Care Provider] - Please follow up with your Primary Care Physician in: 1 week. Please Follow Up With: Akin Kong, When: 2 weeks. Please Follow Up With: Physical Therapy (Scotty Bautista PT) When: 1 week. Disposition: Home Minutes spent on discharge:: 30 Patient Condition:: Good Meaningful Use Info Meaningful Use Diagnoses (Choose all that apply): None applicable
[2017-12-03] MEDS: Polyethylene Glycol 3350 17 GM PACKET PO (05:42)
[2017-12-03] MEDS: Meloxicam 15 MG Tablet PO (05:42)
[2017-12-03] MEDS: Acetaminophen 500 MG Tablet 1000 MG PO (05:42)
[2017-12-03] MEDS: Furosemide 40 MG Tablet PO (05:42)
[2017-12-03] MEDS: Senna/Docusate Sodium 1 Tablet 2 TABLET PO (05:42)
[2017-12-03] MEDS: oxyCODONE 5 MG Tablet PO (05:42)
[2017-12-03] MEDS: Pantoprazole Sodium 20 MG Tablet PO (05:43)
[2017-12-03] MEDS: Isosorbide Mononitrate 60 MG Tablet PO (05:43)
[2017-12-03] MEDS: Ascorbic Acid 500 MG Tablet 1000 MG PO (07:52)
[2017-12-03] MEDS: Aspirin 325 MG Tablet PO (07:52)
[2017-12-03 09:17] VITALS: BP 131/64; PULSE 87; RESP 18; O2SAT 98
--- NOTE | 2017-12-03 14:30 | MDS.RN ---
Information for the mds was obtained from review of the clinical record, interview of resident, staff, and direct observation of resident's care.
== END 2017-12-03 10:00 | disposition home or self-care (01) | DRG 560 ==
PROVIDERS: Admitting Provider Family Medicine Geriatric Medicine; Family Provider Internal Medicine; PCP Internal Medicine; Visit Provider Family Medicine Geriatric Medicine
DX: Z47.1 Aftercare following joint replacement surgery (principal); I50.22 Chronic systolic (congestive) heart failure; I11.0 Hypertensive heart disease with heart failure; I48.2 Chronic atrial fibrillation; M17.12 Unilateral primary osteoarthritis, left knee; Z96.652 Presence of left artificial knee joint; G47.33 Obstructive sleep apnea (adult) (pediatric); K21.9 Gastro-esophageal reflux disease without esophagitis; I25.10 Atherosclerotic heart disease of native coronary artery without angina pectoris; I25.2 Old myocardial infarction; Z85.46 Personal history of malignant neoplasm of prostate; Z79.899 Other long term (current) drug therapy; Z95.5 Presence of coronary angioplasty implant and graft; Z87.891 Personal history of nicotine dependence; E55.9 Vitamin D deficiency, unspecified
CPT/HCPCS: 36415; 80048; 85025; 93970; 97110; 97116; 97162; 97166; 97530; 97535; 97802

== ENCOUNTER → 2018-07-09 16:59 | Outpatient (CLI) | payer MEDICARE, OTHER, SELFPAY ==
--- NOTE | 2018-07-09 17:05 | US_ITS ---
STUDY: RENAL ULTRASOUND - COMPLETE REASON FOR EXAM: Male, 83 years old. Hematuria TECHNIQUE: Ultrasound evaluation of the kidneys was performed with real-time and static barber-scale imaging. COMPARISON: None available. FINDINGS: RIGHT KIDNEY: Normal location of the right kidney, which is normal in size. The right kidney measures 12.1 cm. There is a normal cortex of the right kidney. There is no right renal mass or cyst. There are no right renal calculi. There is no right hydronephrosis. DISTAL RIGHT URETER: There is non-visualization of the distal right ureter. There is no demonstrated right ureterovesical junction calculus. There is a visualized right ureteral jet. LEFT KIDNEY: Normal location of the left kidney, which is normal in size. The left kidney measures 12.2 cm. There is a normal cortex of the left kidney. There is no left renal mass or cyst. There are no left renal calculi. There is no left hydronephrosis. DISTAL LEFT URETER: There is non-visualization of the distal left ureter. There is no demonstrated left ureterovesical junction calculus. There is a visualized left ureteral jet. BLADDER: The urinary bladder is partially distended and appears unremarkable. There is a post void volume of 26 cc. US/Kidney and Bladder IMPRESSION: Normal ultrasound of the kidneys and urinary bladder. Electronically Signed: Vince Ornelas, at 18:29 EDT Tel , Service support ,
== END ==
PROVIDERS: Family Provider Internal Medicine; PCP Internal Medicine; Visit Provider Urology
DX: R31.9 Hematuria, unspecified (principal)
CPT/HCPCS: 76770

== ENCOUNTER 2020-04-27 11:39 | Day surgery (SDC) | payer MEDICARE, OTHER, SELFPAY ==
--- NOTE | 2020-04-26 11:10 | EKG12_ITS ---
Test Reason : PREOP Blood Pressure : / mmHG Vent. Rate : 055 BPM Atrial Rate : 055 BPM P-R Int : 180 ms QRS Dur : 156 ms QT Int : 496 ms P-R-T Axes : -03 011 016 degrees QTc Int : 474 ms Sinus bradycardia Right bundle branch block Abnormal ECG Confirmed by THERESA LAMBERT, NEAL ([id number]), market editor JARRET HARDEN ([id number]) on 04/27/2020 10:18:07 AM Referred By: Kraig Howard Confirmed By:NEAL CARDENAS MD
[2020-04-26 11:17] LABS: Hematocrit 41.7 % (40-54); Hemoglobin 12.9 g/dL (13.0-16.5); Mean Corp Hgb Conc 30.9 g/dL (32-36); Mean Corpuscular Hgb 29.3 pg (27.0-32.0); Mean Corpuscular Volume 94.6 fL (80-94); Mean Platelet Vol. 10.4 fl (6.2-12.0); Platelet Count 191 K/mm3 (150-450); RBC Distribution Width CV 13.7 % (11.6-14.6); RBC Distribution Width SD 47.7 fl (35.1-43.9); Red Blood Count 4.41 M/mm3 (4.6-6.2); White Blood Count 7.3 K/mm3 (4.4-11.0)
[2020-04-26 11:39] LABS: Anion Gap 7 (5-15); BUN 23 mg/dL (7-18); BUN/Creat Ratio 16.7 RATIO (10-20); Calcium,Total 8.5 mg/dL (8.5-10.1); Chloride 104 mmol/L (98-107); Creatinine, Serum 1.38 mg/dL (0.70-1.30); EST Glomerular Filtration Rate 52 mL/min (>60); Est Glom Filt Rate - Afr Amer 63 mL/min (>60); Glucose 164 mg/dL (74-106); Potassium 3.9 mmol/L (3.5-5.1); Sodium Level 138 mmol/L (136-145)
[2020-04-27] VITALS (12 sets, daily range): BP systolic 122–169; BP diastolic 62–105; PULSE 54–74; RESP 16–18; TEMP 36.2–37.1; O2SAT 94–100; BMI 40.0
--- NOTE | 2020-04-27 | IMM_PTH ---
PATIENT: LOLA CROWDER LOC: [facility] [place] U#:[id number] AGE/SX: 85/M ROOM: RE04/27/[address]: Dr. Kraig Howard MD : 1935 BED: DIS: 04/28/2020 SPEC #: [id number] RECD: 04/29/20 11:43 STATUS: HUBER REQ #: [id number] JONNY: 04/27/20 00:[address]: Kraig Howard DEPT: IMMUNOHISTOCHEMISTRY RECD BY: Mariam Campa ENTERED: 04/29/20 11:44 SP TYPE: IMMUNO OTHR DR: Dr. Mauricio Salcido, DO Tissues: Prostate, NOS Procedures: CK20 (add) CK7 (add) Pankeratin (initial) CD44 (add) PSAP (add) PHYSICIAN [facility] INSTITUTION [address] [address] SPECIMEN INFORMATION: Tissue Source: Prostate chips Clinical Info: BPH with obstruction Specimen Number: [id number] #12 CPT code: 99113, 91648 x4 METHODOLOGY: Deparaffinized sections of prefer/formalin-fixed tissue or PAP/DQ stained slides are incubated with monoclonal/polyclonal antibodies/oligonucleotide probes. Localization is made via biotin free immunoperoxidase method. Appropriate controls are performed and reacted as expected. Results on target cell population are indicated in the following table: RESULTS: ANTIBODY / CLONE RESULT Block 12 PSAP (PASE/4LJ) positive AE1-3 (AE1/AE3/PCK26) positive CK7 (OV-TL12/30) negative CK20 (KS20.8) negative anti-CD44 (SP37) negative These tests were developed and their performance characteristics determined by [facility]. They may not have been cleared or approved by the U.S. Food and Drug Administration. The FDA has determined that such clearance or approval is not necessary. The above immunohistochemical/dualISH markers are ordered and reviewed by the Pathologist. INTERPRETATION: Prostate tissue, transurethral resection: Prostatic adenocarcinoma. AM:steve 05/02/20 Case has been reviewed in consultation with Dr. Jose who concurs with the above diagnosis. IDC:[id number]
[2020-04-27] MEDS: Lactated Ringers 1,000 ML 100 ML IV ×2 (12:51→16:48)
--- NOTE | 2020-04-27 13:45 | PROS_PTH ---
PATIENT: LOLA CROWDER LOC: [facility] [place] U#:[id number] AGE/SX: 85/M ROOM: RE04/27/[address]: Dr. Kraig Howard MD : 1935 BED: DIS: 04/28/2020 SPEC #: [id number] RECD: 04/28/20 07:36 STATUS: HUBER REWesley #: [id number] JONNY: 04/27/20 13:[address]: Kraig Howard DEPT: SURGICAL PATHOLOGY RECD BY: Ramon Sanchez ENTERED: 04/28/20 09:37 SP TYPE: TURP OTHR DR: Dr. Mauricio Salcido, DO Tissues: Prostate, NOS Procedures: Surgery Specimen Level IV HEADER OPERATION: Cysto, TUR prostate, Olympus PRE-OP DIAGNOSIS: BPH with obstruction TISSUE SUBMITTED: Prostate chips MICROSCOPIC DIAGNOSIS Prostate, transurethral resection: Adenocarcinoma, [place] 10 (5+5) Mild chronic inflammation and benign nodular hyperplasia. See comment. AM:steve 04/29/20 COMMENT Immunohistochemistry ([id number]) supports the above diagnosis. Approximately 15 to 20% of the tissue is involved by adenocarcinoma. Reference is made to the patient's previous prostate biopsy from 2016 ([id number]) in which adenocarcinoma, [place] grade 7 (3+4) was identified. Case has been reviewed in consultation with Dr. Jose who concurs with the above diagnosis. IDC:[id number] MICROSCOPIC DESCRIPTION Slides are reviewed. GROSS DESCRIPTION Received is one container labeled with the patient's name and designated prostate tissue. The specimen consists of multiple irregular fragments of pink-onofre, rubbery, soft tissue that in aggregate weigh 14 gm and measure in aggregate 6 x 6 x 2 cm. Two fragments of black stones are also noted. The entire soft tissue is submitted in 12 cassettes. The stones are for gross identification only. / KRISTI:steve 04/28/20 TC:0 CPT: 19871
[2020-04-27] MEDS: Cefazolin 2 GM in 0.9% Normal Saline 100 ML IV (14:34)
--- NOTE | 2020-04-27 14:43 | PCM.HP.STD ---
Problem List (1) BPH with obstruction/lower urinary tract symptoms Status: Acute History of Present Illness Date of Admission: 04/27/20 Chief Complaint: BPH with obstruction The patient is a 85 year old male with BPH obstruction today presents the hospital for transurethral resection of the prostate Past Medical History Past Medical History (Chronic Problems): Chronic Problems Obstructive sleep apnea (Chronic) Atrial fibrillation (Chronic) Myocardial infarction (Chronic) Hypertension (Chronic) GERD (gastroesophageal reflux disease) (Chronic) Chronic systolic heart failure (Chronic) Vitamin D deficiency (Chronic) Coronary artery disease (Chronic) Prostate cancer (Chronic) Osteoarthritis of left knee (Chronic) Allergies No Known Allergies Allergy (Verified 04/25/20 15:19) Home Medications: Ambulatory Orders Medication Instructions Recorded Ascorbic Acid [Vitamin C] 1,000 mg PO DAILY 11/05/17 Atenolol [Tenormin (beta maikol)] 50 mg PO QHS 11/05/17 Cholecalciferol (Vitamin D3) 2,000 unit PO DAILY 11/05/17 [Vitamin D3] Furosemide [Lasix] 20 mg PO DAILY 11/05/17 Isosorbide Mononitrate [Imdur] 60 mg PO BID 11/05/17 Losartan Potassium [Cozaar] 100 mg PO QHS 11/05/17 Meloxicam [Mobic] 15 mg PO PRN PRN 11/05/17 Omeprazole [Prilosec] 20 mg PO DAILY 11/05/17 Polyethylene Glycol 3350 [Miralax] 17 gm PO DAILY #30 packet 12/02/17 Aspirin E.C. [Ecotrin] 81 mg PO DAILY@0800 04/25/20 Atorvastatin Calcium [Lipitor] 40 mg PO QHS 04/25/20 Clopidogrel Bisulfate [Plavix] 75 mg PO DAILY 04/25/20 Finasteride [Proscar] 5 mg PO DAILY 04/25/20 Ubidecarenone [Coq-10] 200 mg PO DAILY 04/25/20 Surgical History: coronary bypass surgery, total knee arthroplasty - Left., - - Cardiac stents x 3. Psychiatric History: No pertinent psych hx Smoking Status: Former smoker Tobacco Use: Non-smoker - *Family History Maternal History Items: No pertinent history Paternal History Items: No pertinent history Review of Systems Constitutional: Denies: Chills, Fever, Weight Change HEENT: Denies: Head Aches, Sinus Congestion, Sinus Drainage Cardiovascular: Denies: Chest Pain, Palpitations Respiratory: Denies: Cough, Shortness of breath at rest, Sputum production Gastrointestinal: Denies: Abdominal Pain, Nausea, Vomiting Genitourinary: Denies: Dysuria Musculoskeletal: Denies: Joint Pain, Joint Tenderness Skin: Denies: Rash, Wounds Neurological: Denies: Numbness, Tingling, Focal weakness Psychiatric: Denies: Anxiety, Depression, Homicidal Ideations, Suicidal Ideations Hematologic/ Lymphatic: Denies: Easy Bruising, Easy Bleeding VTE Information - Inpt Only VTE Present on Admission: No VTE Mechan Device Prophylaxis: SCD's Patient Problems: Active and Suspected Problems BPH with obstruction/lower urinary tract symptoms (Acute) - Physical Exam Vitals/I&O's: Vital Signs Temp Pulse Resp BP Pulse Ox 97.1 F L 54 L 18 143/66 H 97 04/27/20 12:24 04/27/20 12:24 04/27/20 12:24 04/27/20 12:24 04/27/20 12:24 Oxygen Delivery Method Room Air Weight: 119.476 kg Body Mass Index (BMI) 40.0 General: Alert, Oriented x3, Cooperative HEENT: Atraumatic, PERRLA, EOMI, Normocephalic Neck: Supple, No JVD, Negative Carotid Bruits Lungs: Clear to auscultation, Normal air movement Cardiovascular: Regular rate, No murmurs Abdomen: Bowel Sounds Present, Soft, Non Tender Extremities: No edema, Capillary Refill Less than 3 Seconds Skin: No rashes, No breakdown Musculoskeletal: No Tenderness to Palpation of Joints or Extremities Neurological: Cranial nerves II-XII grossly intact Psych/Mental Status: Normal Affect, Appropriate Laboratory Results 04/26/20 10:50: COVID-19 (CHARITY) Not Detected Current Medications Lactated Ringer's () 1,000 mls @ 100 mls/hr IV .Q10H DERRICK Last Admin: 04/27/20 12:51 Dose: 100 mls/hr Documented by: Assessment/Plan All Active Problems BPH with obstruction/lower urinary tract symptoms (Acute) Plan to proceed with transurethral section of the prostate.
--- NOTE | 2020-04-27 15:53 | OP.PCM_ITS ---
Problem List (1) BPH with obstruction/lower urinary tract symptoms Status: Acute Report of Operation Date of Procedure: 04/27/20 Pre-Operative Diagnosis: BPH with obstruction Post-Operative Diagnosis: Same Surgery/Procedure Performed:: Transurethral resection of the prostate Description of Surgical Findings:: 85-year-old male was found to have obstructive prostatic channel and difficulty emptying his bladder plan to proceed with a transurethral resection of the prostate. Patient was taken back to the operating room after smooth induction of general anesthesia he was placed supine on the table. The penis and testicles were prepped and draped in usual sterile fashion, is placed in dorsolithotomy position. He was loaded with IV antibiotics and SCDs for DVT prophylaxis. I then went into the bladder with a 24 English noncontinuous flow Olympus resectoscope he was found to have a large obstructive prostate large median lobe and bilateral hypertrophy no stones within the bladder. I then started the resection of the prostate and the median lobe taken is down back to the verumontanum made sure the left and right ureteral orifice were uninjured I then resected the right lobe of the prostate resect the left lobe the prostate I then switched over to the button and vaporized and smooth out the resection I did a flow test had a nice open flow. Sphincter was intact. We Ellik out all the chips in the bladder per the bladder with a 22 English catheter and continuous bladder irrigation and was taken back to PACU in good condition the time for resection of the prostate was about 1 hour. Type of Anesthesia:: General Drains: 3 way nicholson - Admit VTE Documentation VTE Present on Admission: No VTE Mechan Device Prophylaxis: SCD's
--- NOTE | 2020-04-27 15:53 | DCINST_ITS ---
Discharge Diet: Light diet - advance as tolerated Discharge Activity: Return to Normal Activity Allergies/Adverse Reactions: Allergies No Known Allergies Allergy (Verified 04/25/20 15:19) Medications to take at Discharge Ascorbic Acid [Vitamin C] 1,000 mg PO DAILY 11/05/17 Atenolol [Tenormin (beta maikol)] 50 mg PO QHS 11/05/17 Cholecalciferol (Vitamin D3) [Vitamin D3] 2,000 unit PO DAILY 11/05/17 Furosemide [Lasix] 20 mg PO DAILY 11/05/17 Isosorbide Mononitrate [Imdur] 60 mg PO BID 11/05/17 Losartan Potassium [Cozaar] 100 mg PO QHS 11/05/17 Meloxicam [Mobic] 15 mg PO PRN PRN 11/05/17 Omeprazole [Prilosec] 20 mg PO DAILY 11/05/17 Polyethylene Glycol 3350 [Miralax] 17 gm PO DAILY #30 packet 12/02/17 Aspirin E.C. [Ecotrin] 81 mg PO DAILY@0800 04/25/20 Atorvastatin Calcium [Lipitor] 40 mg PO QHS 04/25/20 Clopidogrel Bisulfate [Plavix] 75 mg PO DAILY 04/25/20 Finasteride [Proscar] 5 mg PO DAILY 04/25/20 Ubidecarenone [Coq-10] 200 mg PO DAILY 04/25/20 Primary Care Physician: Mauricio Salcido DO [Primary Care Provider] - Test Results: Test results from this visit will be discussed in further detail at your follow- up appointment, if applicable. Please Follow Up With: Kraig Howard MD When: in 2 weeks, please call to make an appointment.
[2020-04-27] MEDS: 0.9% Normal Saline 1,000 ML 75 ML IV (18:14)
[2020-04-27] MEDS: Cefazolin 1 GM/50 ML BAG IV (22:02)
[2020-04-27] MEDS: Docusate Sodium 100 MG Capsule PO (22:02)
[2020-04-28] MEDS: 0.9% Saline Lock 10 ML Syringe IV (00:21)
[2020-04-28] MEDS: Ketorolac 15 MG/ML Vial IV (00:21)
[2020-04-28 02:05] VITALS: BP 120/48; PULSE 54; RESP 16; TEMP 36.9; O2SAT 96; BMI 40.0
[2020-04-28] MEDS: Cefazolin 1 GM/50 ML BAG IV (05:48)
[2020-04-28 05:51] VITALS: BP 129/58; PULSE 55; RESP 18; TEMP 36.8; O2SAT 95; BMI 40.0
[2020-04-28 06:13] LABS: Hematocrit 37.7 % (40-54); Hemoglobin 11.9 g/dL (13.0-16.5); Mean Corp Hgb Conc 31.6 g/dL (32-36); Mean Corpuscular Hgb 29.9 pg (27.0-32.0); Mean Corpuscular Volume 94.7 fL (80-94); Mean Platelet Vol. 11.7 fl (6.2-12.0); POSITIVE COUNT YES; Platelet Count 132 K/mm3 (150-450); RBC Distribution Width CV 13.7 % (11.6-14.6); RBC Distribution Width SD 47.6 fl (35.1-43.9); Red Blood Count 3.98 M/mm3 (4.6-6.2); White Blood Count 9.8 K/mm3 (4.4-11.0)
[2020-04-28 06:15] LABS: Scan Indicated on CBC? Y/N YES- FLAGS NOTED
[2020-04-28 06:29] LABS: Anion Gap 5 (5-15); BUN 21 mg/dL (7-18); BUN/Creat Ratio 15.6 RATIO (10-20); Calcium,Total 7.7 mg/dL (8.5-10.1); Chloride 106 mmol/L (98-107); Creatinine, Serum 1.35 mg/dL (0.70-1.30); EST Glomerular Filtration Rate 54 mL/min (>60); Est Glom Filt Rate - Afr Amer 65 mL/min (>60); Estimated Creatinine Clearance 39.41 ml/min; Glucose 148 mg/dL (74-106); Potassium 4.3 mmol/L (3.5-5.1); Sodium Level 137 mmol/L (136-145)
[2020-04-28 06:58] LABS: Differential Comment SCANNED
[2020-04-28 10:03] VITALS: BMI 40.0
--- NOTE | 2020-04-28 10:33 | PHA.DC.MC ---
Pharmacy Service has performed discharge medication reconciliation and counseling for this patient. The patient's discharge medication list was reviewed for discrepancies and discrepancies were resolved. The patient was counseled on the following discharge medications and changes in medications for homegoing were reviewed. 1. Ciprofloxacin 500mg PO BID x5 days The Reason for Use, instructions for use, and potential side effects were reviewed for all new medications. The patient's questions regarding all of their medications were answered. The patient/ family member was able to verbally demonstrate an understanding of their discharge medications. Home Medications Ascorbic Acid [Vitamin C] 1,000 mg PO DAILY 11/05/17 Atenolol [Tenormin (beta maikol)] 50 mg PO QHS 11/05/17 Cholecalciferol (Vitamin D3) [Vitamin D3] 2,000 unit PO DAILY 11/05/17 Furosemide [Lasix] 20 mg PO DAILY 11/05/17 Isosorbide Mononitrate [Imdur] 60 mg PO BID 11/05/17 Losartan Potassium [Cozaar] 100 mg PO QHS 11/05/17 Meloxicam [Mobic] 15 mg PO PRN PRN 11/05/17 Omeprazole [Prilosec] 20 mg PO DAILY 11/05/17 Polyethylene Glycol 3350 [Miralax] 17 gm PO DAILY #30 packet 12/02/17 Aspirin E.C. [Ecotrin] 81 mg PO DAILY@0800 04/25/20 Atorvastatin Calcium [Lipitor] 40 mg PO QHS 04/25/20 Clopidogrel Bisulfate [Plavix] 75 mg PO DAILY 04/25/20 Finasteride [Proscar] 5 mg PO DAILY 04/25/20 Ubidecarenone [Coq-10] 200 mg PO DAILY 04/25/20 Ciprofloxacin [Cipro] 500 mg PO BID #10 tab 04/28/20
[2020-04-28] MEDS: Docusate Sodium 100 MG Capsule PO (11:38)
[2020-04-28] MEDS: Pantoprazole Sodium 40 MG Tablet PO (11:38)
[2020-04-28 11:51] VITALS: BP 125/72; PULSE 64; RESP 18; TEMP 36.6; O2SAT 94
== END 2020-04-28 13:31 | disposition home or self-care (01) ==
LOC: SDC 11:40 → AC 11:49 → MS3 04-28 07:44
PROVIDERS: Anesthesiology; PCP Family Medicine; Referring Provider Urology; Visit Provider Urology
PROC: (CPT 52601; principal; 2020-04-27 13:35)
DX: C61 Malignant neoplasm of prostate (principal); N40.1 Benign prostatic hyperplasia with lower urinary tract symptoms; G47.33 Obstructive sleep apnea (adult) (pediatric); I48.91 Unspecified atrial fibrillation; I25.2 Old myocardial infarction; K21.9 Gastro-esophageal reflux disease without esophagitis; I25.10 Atherosclerotic heart disease of native coronary artery without angina pectoris; I11.0 Hypertensive heart disease with heart failure; I50.22 Chronic systolic (congestive) heart failure; N13.8 Other obstructive and reflux uropathy; I45.10 Unspecified right bundle-branch block; Z79.1 Long term (current) use of non-steroidal anti-inflammatories (NSAID); Z79.82 Long term (current) use of aspirin; Z87.891 Personal history of nicotine dependence; Z95.5 Presence of coronary angioplasty implant and graft; Z85.46 Personal history of malignant neoplasm of prostate; E55.9 Vitamin D deficiency, unspecified; Z11.59 Encounter for screening for other viral diseases
CPT/HCPCS: 52601; 36415; 80048; 85027; 87635; 88305; 88341; 88342; 93005; 99251; G2023; J7030; J7120; A4216; G0463; J2405; U0003

== ENCOUNTER → 2020-05-10 14:41 | Outpatient (CLI) | payer MEDICARE, OTHER, SELFPAY ==
[2020-04-27 18:03] VITALS: BMI 40.0
[2020-05-10 17:08] LABS: Anion Gap 6 (5-15); BUN 23 mg/dL (7-18); BUN/Creat Ratio 17.2 RATIO (10-20); Calcium,Total 8.1 mg/dL (8.5-10.1); Chloride 107 mmol/L (98-107); Creatinine, Serum 1.34 mg/dL (0.70-1.30); EST Glomerular Filtration Rate 54 mL/min (>60); Est Glom Filt Rate - Afr Amer 65 mL/min (>60); Glucose 158 mg/dL (74-106); PSA,Total - Annual Screen 5.89 ng/mL (0.00-4.00); Sodium Level 139 mmol/L (136-145)
== END ==
PROVIDERS: PCP Family Medicine; Referring Provider Urology; Visit Provider Urology
DX: C61 Malignant neoplasm of prostate (principal)
CPT/HCPCS: 36415; 80048; 84153; G0103

== ENCOUNTER → 2020-05-16 09:01 | Outpatient (CLI) | payer MEDICARE, OTHER, SELFPAY ==
[2020-04-27 18:03] VITALS: BMI 40.0
--- NOTE | 2020-05-16 09:03 | NM_ITS ---
CLINICAL: 85-year-old male with reported history of carcinoma of the prostate. WHOLE BODY 99m Tc MDP RADIONUCLIDE BONE SCINTIGRAPHY COMPARISON: Previous whole body bone scintigraphy study dated 06/21/2017 FINDINGS: Following the intravenous administration of 27.0 mCi of 99m Tc MDP, whole body bone images reveal: 1. Increased radiopharmaceutical concentration is defined in the acromioclavicular and sternoclavicular compartments of both shoulders, mid cervical spine posteriorly on the left and right, eighth-12th thoracic, first-third and fifth lumbar vertebra, left posterior sacrum, visualized left wrist, both hands, the right knee and right midfoot. 2. The remaining skeletal structures are scintigraphically unremarkable with normal-appearing renal images and urinary bladder activity identified. The presumably asymptomatic left knee arthroplasty demonstrates mild increased tracer uptake in the lateral femoral component most consistent with normal surgical change. NM/Bone Scan Whole Body IMPRESSION: 1. The increase in radiopharmaceutical concentration identified in the bilateral shoulders, cervical, thoracic and lumbar spine, sacrum, left wrist, both hands, the right knee and right midfoot is commensurate with degenerative arthritis. 2. Overall compared to the previous whole body bone scintigraphy study dated 06/21/2017, there is no significant interval change. No current typical scintigraphic evidence of diffuse axial skeletal metastatic disease is defined on the current examination. Electronically Signed: Yo Song DO at 22:15 EDT Tel , Service support ,
== END ==
PROVIDERS: PCP Family Medicine; Referring Provider Urology; Visit Provider Urology
DX: C61 Malignant neoplasm of prostate (principal)
CPT/HCPCS: 78306

== ENCOUNTER → 2020-05-19 12:52 | Outpatient (CLI) | payer MEDICARE, OTHER, SELFPAY ==
[2020-04-27 18:03] VITALS: BMI 40.0
--- NOTE | 2020-05-19 12:55 | CT_ITS ---
STUDY: CT ABDOMEN AND PELVIS WITH CONTRAST REASON FOR EXAM: Male, 85 years old. PROSTATE CA RADIATION DOSAGE (If Supplied By Facility): CTDIvol = ( 16.78 ) mGy, DLP = ( 1186.41 ) mGycm TECHNIQUE: Transaxial images were obtained from the dome of the diaphragm to the symphysis pubis without oral contrast. IV 100mL Isovue-300 was administered. Sagittal and coronal images were reconstructed. Individualized dose optimization techniques were used for this CT. COMPARISON: None. FINDINGS: The visualized lung bases are unremarkable. Prior CABG. Coronary artery calcification. Normal liver. There are surgical clips in the gallbladder fossa consistent with a prior cholecystectomy. Normal spleen. There is diffuse atrophy of the pancreas. Normal bilateral adrenal glands. There is evidence of a mild degree of bilateral renal atrophy. There is evidence of bilateral extrarenal pelves. Normal visualized stomach. Normal small intestine. Normal colon. The appendix is visualized and appears normal. There is diffuse atherosclerotic calcification of the abdominal aorta, without a demonstrated aneurysm. Normal inferior vena cava. Normal retroperitoneum. The bladder is of small capacity. Mild degree of diffuse bladder wall thickening. The prostate measures 5.2 cm x 4.2. There is evidence of a prior TURP with a large central defect. The prostate causes indentation at the bladder base. Normal abdominal wall. There are diffuse degenerative changes of the visualized lumbar spine. CT/Abdomen/Pelvis WITH Contrast IMPRESSION: Status post TURP. Small capacity bladder with thickening of the bladder wall. Mild degree of bilateral renal atrophy. Electronically Signed: Saurav Boyer, at 14:04 EDT , Service support ,
== END ==
PROVIDERS: PCP Family Medicine; Referring Provider Urology; Visit Provider Urology
DX: C61 Malignant neoplasm of prostate (principal)
CPT/HCPCS: 74177

== ENCOUNTER 2020-07-28 05:34 | Emergency (ER) | payer MEDICARE, OTHER, SELFPAY ==
[2020-04-27 18:03] VITALS: BMI 40.0
[2020-07-28 05:35] VITALS: BP 183/80; PULSE 84; RESP 18; TEMP 36.6; O2SAT 97; BMI 39.5
--- NOTE | 2020-07-28 05:52 | ED.VIS.GEN ---
History of Present Illness Chief Complaint: Complaint Detail of Chief Complaint: Urinary retention Informant: Patient Onset: Today Narrative: Patient presents to the ER shortly to 5:30 AM secondary to urinary retention. He states is not been able to pass urine since midnight. He states the last couple days he noted a small amount of blood when he would first start his urinary stream. He does have a history of BPH and prostate cancer. He is followed by Dr. Howard. - Past Medical History (1) BPH with obstruction/lower urinary tract symptoms Status: Chronic (2) Atrial fibrillation Status: Chronic (3) Chronic systolic heart failure Status: Chronic (4) Coronary artery disease Status: Chronic (5) GERD (gastroesophageal reflux disease) Status: Chronic (6) Hypertension Status: Chronic (7) Myocardial infarction Status: Chronic (8) Obstructive sleep apnea Status: Chronic (9) Prostate cancer Status: Chronic Past Medical History - Allergies and Home Meds Allergies/Adverse Reactions: Allergies No Known Allergies Allergy (Verified 07/28/20 05:39) Primary Care Physician: Mauricio Salcido DO [Primary Care Provider] - Prior records reviewed: Yes Surgical History: coronary bypass surgery, total knee arthroplasty - Left., - - Cardiac stents x 3. Lives: Alone Smoking Status: Former smoker - Family History Maternal Family History: Reports: No pertinent history Paternal Family History: Reports: No pertinent history Review of Systems General: Denies: Chills, Fever Eyes: Denies: Visual changes - bilaterally ENT: Denies: Bilateral ear pain Cardiovascular: Denies: Chest pain Respiratory: Denies: Dyspnea, Cough Gastrointestinal: Reports: Abdominal pain - Suprapubic pain. Denies: Nausea, Vomiting Genitourinary: Reports: - - Unable to urinate Neurological: Denies: Headache Hematologic: Denies: Easy bruising, Easy bleeding Allergy: Denies: Uticaria Physical Exam Vital Signs/Narrative: Vital Signs Temp Pulse Resp BP Pulse Ox 07/28/20 05:35 97.8 F 84 18 183/80 H 97 Inital Vital Signs reviewed: Yes General: Well nourished, Well developed Head: Normocephalic ENT: Moist mucous membranes Neck: Supple Cardiovascular: Regular rate, Regular rhythm Respiratory: No distress, CTA bilaterally Abdomen: Soft, Normal bowel sounds, Tender - Mild suprapubic tenderness to palpation. Extremities: Nontender Skin: Normal color Neurological: Alert, Oriented x3 Psychological: Normal affect Diagnostic/Tx/Re-eval - Medical Decision Making Bladder scan reveals approximate 400 cc of urine. Nursing staff was unable to place a catheter stated that they met resistance at the urethral meatus and suspect patient likely has strictures. I spoke with Dr. Howard who will be in to see the patient. Dr. Howard was able to place a guidewire and insert catheter over this. There is drainage of greater than 1 L of urine following this. Patient is to go home with catheter and will follow up with Dr. Howard in the office next week. ED Disposition - Plan for ED Patient: Disposition: Home or Assisted Living Diagnosis: Urinary retention Instructions: ED Archuleta Catheter Care, ED Urinary Retention Male Referrals: Kraig Howard MD [STAFF PHYSICIAN] - 1 Week
--- NOTE | 2020-07-28 06:10 | ED.RN ---
ATTEMPTED CATHETER PLACEMENT WITH COUDE AFTER 18g WAS UNPASSABLE. TIP OF SIDDIQUI IS ONLY ABLE TO BE INSERTED MILLIMETERS INTO THE HEAD OF PENIS. DR. TINSLEY CONSULTED. DR. LUNDBERG CALLED. BARD UROLOGICAL KIT BROUGHT TO BEDSIDE.
--- NOTE | 2020-07-28 06:57 | PCM.CONS.U ---
Reason for Consult Date of Consultation: 07/28/20 Reason for Consultation: Unable to urinate History of Present Illness: The patient is a 85 year old male with a history of large prostate underwent a transurethral resection of the prostate back this past summer he suddenly presented to the emergency room with retention of urine nursing staff were unable to place a catheter so I came in and used a Glidewire did not have to do any dilation and then over the wire I advanced a 16 Croatian catheter was able to get in the bladder quite easily and got about a liter of urine out nice and clear. Not clear why he went into retention of urine may have developed a bladder neck contracture etc. will need a cystoscopy to evaluate Past Medical History Past Medical History (Chronic Problems): Chronic Problems BPH with obstruction/lower urinary tract symptoms (Chronic) Obstructive sleep apnea (Chronic) Atrial fibrillation (Chronic) Myocardial infarction (Chronic) Hypertension (Chronic) GERD (gastroesophageal reflux disease) (Chronic) Chronic systolic heart failure (Chronic) Vitamin D deficiency (Chronic) Coronary artery disease (Chronic) Prostate cancer (Chronic) Osteoarthritis of left knee (Chronic) Allergies No Known Allergies Allergy (Verified 07/28/20 05:39) Home Medications: Ambulatory Orders Medication Instructions Recorded Ascorbic Acid [Vitamin C] 1,000 mg PO DAILY 11/05/17 Atenolol [Tenormin (beta maikol)] 50 mg PO QHS 11/05/17 Cholecalciferol (Vitamin D3) 2,000 unit PO DAILY 11/05/17 [Vitamin D3] Furosemide [Lasix] 20 mg PO DAILY 11/05/17 Isosorbide Mononitrate [Imdur] 60 mg PO BID 11/05/17 Losartan Potassium [Cozaar] 100 mg PO QHS 11/05/17 Meloxicam [Mobic] 15 mg PO PRN PRN 11/05/17 Omeprazole [Prilosec] 20 mg PO DAILY 11/05/17 Polyethylene Glycol 3350 [Miralax] 17 gm PO DAILY #30 packet 12/02/17 Atorvastatin Calcium [Lipitor] 40 mg PO QHS 04/25/20 Clopidogrel Bisulfate [Plavix] 75 mg PO DAILY 04/25/20 Finasteride [Proscar] 5 mg PO DAILY 04/25/20 Ubidecarenone [Coq-10] 200 mg PO DAILY 04/25/20 Surgical History: coronary bypass surgery, total knee arthroplasty - Left., - - Cardiac stents x 3. Psychiatric History: No pertinent psych hx Lives: Alone Smoking Status: Former smoker - *Family History Maternal History Items: No pertinent history Paternal History Items: No pertinent history Review of Systems Constitutional: Denies: Chills, Fever, Weight Change HEENT: Denies: Head Aches, Sinus Congestion, Sinus Drainage Cardiovascular: Denies: Chest Pain, Palpitations Respiratory: Denies: Cough, Shortness of breath at rest, Sputum production Gastrointestinal: Denies: Abdominal Pain, Nausea, Vomiting Genitourinary: Denies: Dysuria Musculoskeletal: Denies: Joint Pain, Joint Tenderness Skin: Denies: Rash, Wounds Neurological: Denies: Numbness, Tingling, Focal weakness Psychiatric: Denies: Anxiety, Depression, Homicidal Ideations, Suicidal Ideations Hematologic/ Lymphatic: Denies: Easy Bruising, Easy Bleeding Physical Exam - Physical Exam Vital Signs Temp 97.8 F 07/28/20 05:35 Pulse 84 07/28/20 05:35 Resp 18 07/28/20 05:35 BP 183/80 H 07/28/20 05:35 Pulse Ox 97 07/28/20 05:35 Intake & Output 07/26/20 07/27/20 07/28/20 23:59 23:59 23:59 Weight: 118 kg General: Alert, Oriented x3 Oral: Moist Mucosa Neck: Supple Lungs: Normal air movement Cardiovascular: Regular rate Abdomen: Soft Assessment/Plan 85-year-old male status post TURP this summer had been doing well and then suddenly developed a tension of urine came into the emergency room had a Archuleta placed Archuleta placement was actually quite easily no scar tissue anything that identify Archuleta placement he will go home with a catheter I want to see him next week in the office for cystoscopy to evaluate the cause of the retention of urine.
[2020-07-28 07:04] LABS: Bacteria 0 SEEN /hpf (None Seen); Mucous, Urine 0 SEEN /hpf (<or=2+)
[2020-07-28 07:05] LABS: Color, Urine Yellow (Yellow); Glucose, Dipstick Normal (Normal); Ketone-Dipstick Negative (Negative); Leukocyte Esterase-Dipstick 100 /ul (Negative); Nitrite-Dipstick Negative (Negative); Occult Blood-Urine 250 /ul (Negative); Protein-Dipstick Negative (Negative); Urine Bilirubin Dipstick Negative (Negative); Urine Clarity Clear (Clear); Urine Urobilinogen Normal (Normal)
[2020-07-28 07:14] LABS: Red Blood Cells-Urine 5-10 SEEN /hpf (0-5); Squamous Epithelial Cells - UA 5-10 SEEN /hpf (0-5); White Blood Cells 0-5 SEEN /hpf (0-5)
== END 2020-07-28 07:34 | disposition home or self-care (01) ==
PROVIDERS: Emergency Provider Emergency Medicine; PCP Family Medicine
DX: N40.1 Benign prostatic hyperplasia with lower urinary tract symptoms (principal); R33.8 Other retention of urine; N13.8 Other obstructive and reflux uropathy; C61 Malignant neoplasm of prostate; I25.10 Atherosclerotic heart disease of native coronary artery without angina pectoris; I48.91 Unspecified atrial fibrillation; I25.2 Old myocardial infarction; I50.22 Chronic systolic (congestive) heart failure; I11.0 Hypertensive heart disease with heart failure; K21.9 Gastro-esophageal reflux disease without esophagitis; E55.9 Vitamin D deficiency, unspecified; Z95.5 Presence of coronary angioplasty implant and graft; Z79.1 Long term (current) use of non-steroidal anti-inflammatories (NSAID); Z79.02 Long term (current) use of antithrombotics/antiplatelets; Z79.899 Other long term (current) drug therapy; Z87.891 Personal history of nicotine dependence
CPT/HCPCS: 51702; 81001; 99283

== ENCOUNTER → 2021-08-22 18:02 | Outpatient (CLI) | payer MEDICARE, OTHER, SELFPAY | PROVIDERS: PCP Family Medicine; Visit Provider Urology | DX: N30.01 Acute cystitis with hematuria (principal) | CPT/HCPCS: 87077; 87086; 87088; 87186 ==

== ENCOUNTER → 2021-09-11 16:42 | Outpatient (CLI) | payer MEDICARE, OTHER, SELFPAY | PROVIDERS: PCP Family Medicine; Visit Provider Urology | DX: N30.01 Acute cystitis with hematuria (principal) | CPT/HCPCS: 87077; 87086; 87088; 87186 ==

== ENCOUNTER 2021-10-11 06:01 | Day surgery (SDC) | payer MEDICARE, OTHER, SELFPAY ==
[2021-10-11] VITALS (10 sets, daily range): BP systolic 143–197; BP diastolic 54–94; PULSE 51–62; RESP 16; TEMP 35.8–36.6; O2SAT 94–98; BMI 38.7
--- NOTE | 2021-10-11 | IMM_PTH ---
PATIENT: LOLA CROWDER [place] [facility] [id number] AGE/SX: 86/M ROOM: RE10/11/[address]: Dr. Kraig Howard MD : 1935 BED: DIS: 10/11/2021 SPEC #: [id number] RECD: 10/12/21 13:21 STATUS: HUBER REQ #: [id number] JONNY: 10/11/21 00:[address]: Kraig Howard DEPT: IMMUNOHISTOCHEMISTRY RECD BY: Mariam Campa ENTERED: 10/12/21 13:22 SP TYPE: IMMUNO OTHR DR: Dr. Mauricio Salcido, DO Tissues: Prostate, NOS Procedures: CK20 (add) CK7 (add) Pankeratin (initial) CD44 (add) PSAP (add) PHYSICIAN & INSTITUTION [place] [id number] SPECIMEN INFORMATION: Tissue Source: Prostate tissue Clinical Info: Malignant neoplasm of prostate, BPH, bladder neck obstruction Specimen Number: [id number] CPT code: 66786, 79854 x4 METHODOLOGY: Deparaffinized sections of prefer/formalin-fixed tissue or PAP/DQ stained slides are incubated with monoclonal/polyclonal antibodies/oligonucleotide probes. Localization is made via biotin free immunoperoxidase method. Appropriate controls are performed and reacted as expected. Results on target cell population are indicated in the following table: RESULTS: ANTIBODY / CLONE RESULT AE1-3 (AE1/AE3/PCK26) positive PSAP (PASE/4LJ) positive anti-CD44 (SP37) positive, focal CK7 (OV-TL12/30) negative CK20 (KS20.8) negative These tests were developed and their performance characteristics determined by [facility]. They may not have been cleared or approved by the U.S. Food and Drug Administration. The FDA has determined that such clearance or approval is not necessary. The above immunohistochemical/dualISH markers are ordered and reviewed by the Pathologist. INTERPRETATION: Prostate, transurethral resection: Prostatic adenocarcinoma. KRISTI:steve 10/16/2021
--- NOTE | 2021-10-11 06:15 | EKG12_ITS ---
Test Reason : PREOP Blood Pressure : / mmHG Vent. Rate : 050 BPM Atrial Rate : 050 BPM P-R Int : 170 ms QRS Dur : 152 ms QT Int : 546 ms P-R-T Axes : 048 -01 024 degrees QTc Int : 497 ms Sinus bradycardia Right bundle branch block Abnormal ECG When compared with ECG of 26-APR-2020 11:17, No significant change was found Confirmed by SOLO LAMBERT, NATHALIE ([id number]), slot editor MIRZA AMAYA ([id number]) on 10/17/2021 10:16:52 AM Referred By: Kraig Howard Confirmed By:NATHALIE BANDA MD
[2021-10-11] MEDS: Lactated Ringers 1,000 ML 100 ML IV (07:00)
[2021-10-11] MEDS: Lactated Ringers 1,000 ML 15 ML IV (07:11)
[2021-10-11 07:30] LABS: Hematocrit 36.6 % (40-54); Hemoglobin 11.7 g/dL (13.0-16.5); Mean Corpuscular Hgb 28.3 pg (27.0-32.0); Mean Corpuscular Volume 88.4 fL (80-94); Mean Platelet Vol. 10.3 fl (6.2-12.0); Platelet Count 207 K/mm3 (150-450); RBC Distribution Width CV 13.9 % (11.6-14.6); Red Blood Count 4.14 M/mm3 (4.6-6.2); White Blood Count 6.6 K/mm3 (4.4-11.0)
--- NOTE | 2021-10-11 07:30 | PROS_PTH ---
PATIENT: LOLA CROWDER LOC: [facility] – [place] U#:[id number] AGE/SX: 86/M ROOM: RE10/11/[address]: Dr. Kraig Howard MD : 1935 BED: DIS: 10/11/2021 SPEC #: [id number] RECD: 10/11/21 12:07 STATUS: HUBER ALLRED #: [id number] JONNY: 10/11/21 07:[address]: Kraig Howard DEPT: SURGICAL PATHOLOGY RECD BY: Rosemary Coleman ENTERED: 10/11/21 13:21 SP TYPE: TURP OTHR DR: Dr. Mauricio Salcido, DO Tissues: Prostate, NOS Procedures: Surgery Specimen Level IV HEADER OPERATION: Cysto, TUR prostate, Olympus PRE-OP DIAGNOSIS: Malignant neoplasm of prostate, BPH with lower urinary tract symptoms, bladder neck obstruction TISSUE SUBMITTED: Prostate tissue MICROSCOPIC DIAGNOSIS Prostate, transurethral resection: Poorly differentiated prostatic adenocarcinoma, [place] 10 (5+5). See synoptic report below. AM:steve 10/12/2021 COMMENT PROSTATE CANCER (TUR) SUMMARY: Procedure - transurethral resection of prostate (TURP) Specimen size - Histologic type ? adenocarcinoma Histologic grade (Ermias Pattern) ? 10 (5+5) % of pattern 4 ? 10% % of pattern 5 ? 90% Intraductal carcinoma ? not identified Estimated % of tumor involved ? 90% of chips Periprostatic fat invasion ? not applicable Seminal vesicle invasion ? not applicable Lymphvascular invasion ? not identified Perineural invasion ? not identified Treatment effect - unknown Additional pathologic findings ? chronic inflammation. The above summary is in compliance with [employer] [place] [employer] (CAP) Cancer Protocols Checklist and [place] Joint Committee on Cancer (AJCC), Staging Manual, 8th Ed. The adenocarcinoma involves >90% of the submitted tissue. Clinical correlation is suggested. Immunohistochemistry ([id number]) supports the above diagnosis. Reference is made to the patient's prostate transurethral resection ([id number]) in which poorly differentiated adenocarcinoma, Ermias 10 (5+5) was identified. This case has been reviewed in consultation with Dr. Jose who concurs with the above diagnosis. MICROSCOPIC DESCRIPTION Slides are reviewed. GROSS DESCRIPTION Received is one container labeled with the patient's name and designated prostate tissue. The specimen consists of multiple irregular fragments of pink-onofre, rubbery, soft tissue that in aggregate weigh 13.2 gm and measure in aggregate 4.5 x 4.5 x 0.6 cm. The specimen is totally submitted in six cassettes. / AM:steve 10/11/21 TC:0 CPT: 40295
[2021-10-11 07:34] LABS: Anion Gap 6 (5-15); BUN 23 mg/dL (7-18); BUN/Creat Ratio 16.7 RATIO (10-20); Chloride 108 mmol/L (98-107); Creatinine, Serum 1.38 mg/dL (0.70-1.30); EST Glomerular Filtration Rate 52 mL/min (>60); Est Glom Filt Rate - Afr Amer 63 mL/min (>60); Estimated Creatinine Clearance 37.86 ml/min; Glucose 191 mg/dL (74-106); Potassium 4.1 mmol/L (3.5-5.1); Sodium Level 141 mmol/L (136-145)
--- NOTE | 2021-10-11 07:41 | HP.PCM_ITS ---
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 [facility] Medical History (Updated 10/04/21 @ 10:20 by Drea Gandara) Cancer Cardiology follow-up encounter Constipation CPAP (continuous positive airway pressure) dependence Former smoker Gastric reflux High cholesterol History of atrial fibrillation History of echocardiogram History of heart attack History of stress test History of ulceration Hypertension Prostate disease Shortness of breath on exertion Sleep apnea Weakness Wears glasses Home Medications ascorbic acid (vitamin C) [Vitamin C] 1,000 mg PO DAILY 11/05/17 [History Last Taken 11/11/17] atenolol 50 mg PO QHS 11/05/17 [History Last Taken 11/17/17 22:00 1] cholecalciferol (vitamin D3) [Vitamin D3] 2,000 unit PO DAILY 11/05/17 [History Last Taken 11/11/17] furosemide [Lasix] 20 mg PO DAILY 11/05/17 [History Last Taken 11/17/17 08:00] isosorbide mononitrate 60 mg PO BID 11/05/17 [History Last Taken 10/11/21 05:00] losartan 100 mg PO QHS 11/05/17 [History Last Taken 11/17/17 22:00 1] omeprazole 20 mg PO DAILY 11/05/17 [History Last Taken 10/11/21 05:00] atorvastatin 40 mg PO QHS 04/25/20 [History Last Taken Unknown] clopidogrel 75 mg PO DAILY 04/25/20 [History Last Taken 10/06/21] coenzyme Q10 200 mg PO DAILY 04/25/20 [History Last Taken Unknown] Acidophilus 100 mg PO DAILY 10/04/21 [History Last Taken Unknown] aspirin 81 mg PO DAILY 10/04/21 [History Last Taken 10/06/21] polyethylene glycol 3350 17 gm PO PRN PRN 10/04/21 [History Last Taken Unknown] ciprofloxacin HCl [Cipro] 500 mg PO BID #14 tab 10/11/21 [Rx Last Taken Unknown] Allergy/AdvReac Type Severity Reaction Status Date / Time No Known Allergies Allergy Verified 10/11/21 06:47 Surgical History (Updated 10/04/21 @ 10:20 by Drea Gandara) History of cardiac catheterization History of coronary artery stent placement History of heart surgery Hx laparoscopic cholecystectomy Hx of CABG Hx of surgical procedure Hx of tonsillectomy Hx of total knee replacement Hx of transurethral resection of prostate Social History Smoking Status: Former smoker Vital Signs Vital Signs Vital Signs: 10/11/21 06:50 10/11/21 07:07 Temperature 98 F Temperature Source Temporal Pulse Rate 51 L Respiratory Rate 16 Respiratory Pattern Normal Blood Pressure 161/54 H Blood Pressure Mean 89 Blood Pressure Source Monitor Blood Pressure Position Semi-Fowlers Blood Pressure Location Right Arm Pulse Ox 98 Oxygen Delivery Method Room Air Weight Weight: 115.4 kg Body Mass Index (BMI) 38.7 Results Lab / Micro Data Result Diagrams: 10/11/21 07:10 10/11/21 07:10 Labs: Laboratory Results - last 24 hr 10/11/21 07:10: WBC 6.6, RBC 4.14 L, Hgb 11.7 L, Hct 36.6 L, MCV 88.4, MCH 28.3, MCHC 32.0, RDW Std Deviation 45.0 H, RDW Coeff of Randa 13.9, Plt Count 207, MPV 10.3 10/11/21 07:10: Sodium 141, Potassium 4.1, Chloride 108 H, Carbon Dioxide 27.0, Anion Gap 6, BUN 23 H, Creatinine 1.38 H, Estim Creat Clear Calc 37.86, Est GFR (MDRD) Af Amer 63, Est GFR (MDRD) Non-Af 52 L, BUN/Creatinine Ratio 16.7, Gl ucose 191 H, Calcium 9.0
--- NOTE | 2021-10-11 07:42 | DCINST_ITS ---
Discharge Instructions Diet Discharge Diet: No restrictions Activity Discharge Activity: Return to Normal Activity and May Not Drive (while taking narcotic pain medications.) Dressing / Incision Call your doctor if you observe: Fever of 101 or Higher Follow Up Care Please Follow Up With: Kraig Howard MD When: Call [phone] for an appointment Test Results: Test results from this visit will be discussed in further detail at your follow-up appointment, if applicable. Discharge Plan Admission Primary Reason for Your Visit: TURP Attending Provider: Kraig Howard Primary Care Provider: Mauricio Salcido Discharge Orders/Prescriptions Prescriptions: New ciprofloxacin HCl [Cipro] 500 mg tablet 500 mg PO BID Qty: 14 RF: 0 Continued furosemide [Lasix] 40 MG tablet 20 mg PO DAILY RF: 0 ascorbic acid (vitamin C) [Vitamin C] 1,000 MG tablet 1,000 mg PO DAILY RF: 0 isosorbide mononitrate 60 MG tablet 60 mg PO BID RF: 0 omeprazole 20 MG capsule 20 mg PO DAILY RF: 0 losartan 100 MG tablet 100 mg PO QHS RF: 0 atenolol 50 MG tablet 50 mg PO QHS RF: 0 cholecalciferol (vitamin D3) [Vitamin D3] 2,000 UNIT capsule 2,000 unit PO DAILY RF: 0 atorvastatin 40 MG tablet 40 mg PO QHS RF: 0 coenzyme Q10 100 MG capsule 200 mg PO DAILY RF: 0 Acidophilus Capsule 100 mg PO DAILY RF: 0 polyethylene glycol 3350 17 GM powder in packet 17 gm PO PRN PRN (Reason: Constipation) RF: 0 Held clopidogrel 75 MG tablet 75 mg PO DAILY RF: 0 Hold Instructions: Resume on 10/25/21. aspirin 81 mg Capsule 81 mg PO DAILY RF: 0 Hold Instructions: Resume on 10/25/21. Other Ambulatory Orders: 12 Lead EKG (Routine) Timeframe: [id number] Facility: [facility] - Location: Cardiovascular Services Ordered By: Dr. Vinayak Pinto Referrals / Follow Up: Mauricio Salcido DO [Primary Care Provider] - Kraig Howard MD [STAFF PHYSICIAN] - Disposition Disposition (needs filled in before D/C Order can be placed): Home, Self Care
--- NOTE | 2021-10-11 08:21 | PCM.OPRPT ---
Report of Operation Date of Procedure: 10/11/21 Pre-Operative Diagnosis: Obstruction from prostate cancer regrowth of tissue Post-Operative Diagnosis: The same Surgery/Procedure Performed:: Transurethral resection of regrowth of prostate cancer tissue in the channel Description of Surgical Findings:: Is an 86-year-old male who few years ago was diagnosed with a BPH with obstruction underwent resection was found to have high-grade prostate cancer since then he has been doing relatively well but most recently has been having more difficulty emptying his bladder more problems when to the bathroom frequently on cystoscopy was found to have a lot of regrowth and tissue blocking his channel the has prostate cancer and on the channel is difficult to tell where the sphincter is not where the verumontanum it is but given his regrowth to proceed with a transurethral resection of prostate this would be a resection of the prostate for regrowth within the channel he will go home with a catheter today Patient was taken back to the operating room at the smooth induction of anesthesia he was placed in dorsolithotomy position. The penis and testicles were prepped and draped in usual fashion, I first dilated the meatus with some sounds up to 26 [place] then I went in with a 24 [place] continuous-flow resectoscope incised along the channel there was some little pieces of tissue ingrowth along the channel they were not obstructive and then passed the sphincter there was a lot of regrowth of fluffy material that was blocking up the channel so then I used the resectoscope and I resected this all to open up the channel again I was very careful to identify the sphincter there was no true verumontanum as they had been resected before or taken over by prostate cancer, so that I did identify the sphincter by visual anatomy. After resecting all the tissue down to the sphincter I did a flow test he had a decent flow not wide open but decent outflow and improvement in his flow so then I cauterized the channel obtain hemostasis and then we placed a 20 [place] catheter into the bladder he will go home with a catheter I will see him in 2 weeks to remove the catheter. Surgeon: prem Type of Anesthesia: General Drains: 20 fr nicholson Admit VTE Documentation VTE Present on Admission: No VTE Mechan Device Prophylaxis: SCD's VTE Pharm Prophylaxis ordered?: No
== END 2021-10-11 12:01 | disposition home or self-care (01) ==
LOC: SDC 06:03 → AC 07:38
PROVIDERS: Anesthesiology; PCP Family Medicine; Referring Provider Urology; Visit Provider Urology
PROC: (CPT 52630; principal; 2021-10-11 07:20)
DX: N40.1 Benign prostatic hyperplasia with lower urinary tract symptoms (principal); N13.8 Other obstructive and reflux uropathy; C61 Malignant neoplasm of prostate; E78.00 Pure hypercholesterolemia, unspecified; G47.30 Sleep apnea, unspecified; I10 Essential (primary) hypertension; I45.10 Unspecified right bundle-branch block; I48.91 Unspecified atrial fibrillation; K21.9 Gastro-esophageal reflux disease without esophagitis; I25.2 Old myocardial infarction; Z79.82 Long term (current) use of aspirin; Z87.891 Personal history of nicotine dependence
CPT/HCPCS: 00914; 52630; 80048; 85027; 88305; 88341; 88342; 93005; J7120; J2405

== ENCOUNTER 2021-10-14 09:50 | Emergency (ER) | payer MEDICARE, OTHER, SELFPAY ==
[2021-10-14 09:50] VITALS: BP 166/128; PULSE 86; RESP 18; TEMP 35.8; O2SAT 98; BMI 38.5
--- NOTE | 2021-10-14 10:16 | EDS_ITS ---
HPI History of Present Illness Chief Complaint: Complaint Narrative Narrative: Patient presents with some hematuria from his Archuleta catheter. The catheter was placed by urology. He has no abdominal pain. He is complaining of some constipation since the Archuleta but otherwise he has no other symptoms. He does not have any blockage, he does have some leaking around the catheter site also. [facility] Medical History Cancer Cardiology follow-up encounter Constipation CPAP (continuous positive airway pressure) dependence Former smoker Gastric reflux High cholesterol History of atrial fibrillation History of echocardiogram History of heart attack History of stress test History of ulceration Hypertension Prostate disease Shortness of breath on exertion Sleep apnea Weakness Wears glasses Home Medications ascorbic acid (vitamin C) [Vitamin C] 1,000 mg PO DAILY 11/05/17 [History Last Taken 11/11/17] atenolol 50 mg PO QHS 11/05/17 [History Last Taken 11/17/17 22:00 1] cholecalciferol (vitamin D3) [Vitamin D3] 2,000 unit PO DAILY 11/05/17 [History Last Taken 11/11/17] furosemide [Lasix] 20 mg PO DAILY 11/05/17 [History Last Taken 11/17/17 08:00] isosorbide mononitrate 60 mg PO BID 11/05/17 [History Last Taken 10/11/21 05:00] losartan 100 mg PO QHS 11/05/17 [History Last Taken 11/17/17 22:00 1] omeprazole 20 mg PO DAILY 11/05/17 [History Last Taken 10/11/21 05:00] atorvastatin 40 mg PO QHS 04/25/20 [History Last Taken Unknown] clopidogrel 75 mg PO DAILY 04/25/20 [History Last Taken 10/06/21] coenzyme Q10 200 mg PO DAILY 04/25/20 [History Last Taken Unknown] Acidophilus 100 mg PO DAILY 10/04/21 [History Last Taken Unknown] aspirin 81 mg PO DAILY 10/04/21 [History Last Taken 10/06/21] polyethylene glycol 3350 17 gm PO PRN PRN 10/04/21 [History Last Taken Unknown] ciprofloxacin HCl [Cipro] 500 mg PO BID #14 tab 10/11/21 [Rx Last Taken Unknown] polyethylene glycol 3350 [Miralax] 17 g PO TID #119 g 10/14/21 [Rx Last Taken Unknown] Allergy/AdvReac Type Severity Reaction Status Date / Time No Known Allergies Allergy Verified 10/14/21 09:53 Surgical History History of cardiac catheterization History of coronary artery stent placement History of heart surgery Hx laparoscopic cholecystectomy Hx of CABG Hx of surgical procedure Hx of tonsillectomy Hx of total knee replacement Hx of transurethral resection of prostate Social History Smoking Status: Former smoker ROS ROS ED ROS Narrative Past medical history: Reviewed Medications: Reviewed Social history: Noncontributory Review of systems: All systems negative except as indicated General: No fever Cardiovascular: No chest pain Respiratory: No shortness of breath or cough Gastrointestinal: No abdominal pain, nausea vomiting. Constipation as in HPI Genitourinary: Archuleta catheter problems as in HPI Musculoskeletal: Denies myalgias no difficulty with ambulation Skin: No rash Neurological: No memory loss, confusion or any focal weakness Psych: No recent behavioral changes Hematologic: No easy bleeding or easy bruising EXAM Physical Exam Narrative Exam Narrative: Physical exam General: Well nourished, Well developed, No Acute Distress Head: Normocephalic, Atraumatic Cardiovascular: Normal pulses Respiratory: No distress Abdomen: Soft, Nontender, Nondistended : He is uncircumcised, he has a 22 [place] Archuleta catheter which is draining but has some slight blood clots throughout. No testicular pain no signs of infection. Back: Nontender, Normal Inspection. Negative for: CVA tenderness Extremities: Nontender, No edema Skin: Normal color, No rash Neurological: Alert, Normal Strength, Normal Sensation Psychological: Normal affect Const Vital Signs: 10/14/21 09:50 Temperature 96.4 F L Temperature Source Temporal Pulse Rate 86 Respiratory Rate 18 Blood Pressure 166/128 H Blood Pressure Mean 140 Pulse Ox 98 Oxygen Delivery Method Room Air MDM MDM MDM Narrative Medical decision making narrative: The catheter will be flushed by the nurse, I will culture the urine otherwise I believe the patient can be discharged in stable condition I will give him medication for his constipation also. Discharge Plan Triage Chief Complaint: Complaint ED Provider: Justus Denney Dx/Rx/DC Orders Clinical Impression: Archuleta catheter problem, Hematuria, Constipation Instructions: ED Constipation (Adult), ED Hematuria Prescriptions: New polyethylene glycol 3350 [Miralax] 17 gram/dose powder 17 g PO TID Qty: 119 RF: 0 No Action furosemide [Lasix] 40 MG tablet 20 mg PO DAILY RF: 0 ascorbic acid (vitamin C) [Vitamin C] 1,000 MG tablet 1,000 mg PO DAILY RF: 0 isosorbide mononitrate 60 MG tablet 60 mg PO BID RF: 0 omeprazole 20 MG capsule 20 mg PO DAILY RF: 0 losartan 100 MG tablet 100 mg PO QHS RF: 0 atenolol 50 MG tablet 50 mg PO QHS RF: 0 cholecalciferol (vitamin D3) [Vitamin D3] 2,000 UNIT capsule 2,000 unit PO DAILY RF: 0 atorvastatin 40 MG tablet 40 mg PO QHS RF: 0 clopidogrel 75 MG tablet 75 mg PO DAILY RF: 0 Hold Instructions: Resume on 10/25/21. coenzyme Q10 100 MG capsule 200 mg PO DAILY RF: 0 Acidophilus Capsule 100 mg PO DAILY RF: 0 aspirin 81 mg Capsule 81 mg PO DAILY RF: 0 Hold Instructions: Resume on 10/25/21. polyethylene glycol 3350 17 GM powder in packet 17 gm PO PRN PRN (Reason: Constipation) RF: 0 ciprofloxacin HCl [Cipro] 500 mg tablet 500 mg PO BID Qty: 14 RF: 0 Primary Care Provider: Mauricio Salcido Referrals: Mauricio Salcido DO [Primary Care Provider] - 3-5 Days Disposition Disposition: Home, Self Care
[2021-10-14 11:05] VITALS: BP 157/88; PULSE 70
== END 2021-10-14 11:23 | disposition home or self-care (01) ==
LOC: ED 10:34
PROVIDERS: Emergency Provider Emergency Medicine; PCP Family Medicine
DX: T83.098A Other mechanical complication of other urinary catheter, initial encounter (principal); R31.9 Hematuria, unspecified; K59.00 Constipation, unspecified; E78.00 Pure hypercholesterolemia, unspecified; G47.30 Sleep apnea, unspecified; I10 Essential (primary) hypertension; I48.91 Unspecified atrial fibrillation; K21.9 Gastro-esophageal reflux disease without esophagitis; I25.2 Old myocardial infarction; Z87.891 Personal history of nicotine dependence; Z79.82 Long term (current) use of aspirin
CPT/HCPCS: 87086; 99282

== ENCOUNTER 2021-11-13 09:46 | Emergency (ER) | payer MEDICARE, OTHER, SELFPAY ==
[2021-11-13 09:47] VITALS: BP 168/90; PULSE 63; RESP 18; TEMP 36.2; O2SAT 100; BMI 38.7
[2021-11-13 10:47] LABS: Bacteria 0 SEEN /hpf (None Seen); Mucous, Urine 0 SEEN /hpf (<or=2+); Squamous Epithelial Cells - UA 0 SEEN /hpf (0-5)
[2021-11-13 10:55] LABS: Color, Urine Red (Yellow); Glucose, Dipstick Normal (Normal); Nitrite-Dipstick Negative (Negative); Protein-Dipstick 500 mg/dl (Negative); Urine Bilirubin Dipstick Negative (Negative); Urine Clarity Turbid (Clear); Urine Urobilinogen Normal (Normal)
[2021-11-13 11:01] LABS: Prothrombin Time (Protime)PT. 12.9 SECONDS (11.7-14.9)
[2021-11-13 11:02] LABS: Partial Thromboplast Time 27.3 Seconds (24.1-36.2)
[2021-11-13 11:04] LABS: ALB/GLOB Ratio 1.1 RATIO (0.9-2.4); AST(SGOT) 25 U/L (15-37); Alanine Aminotransfer ALT/SGPT 22 U/L (16-61); Albumin, Serum 3.5 g/dL (3.2-5.0); Alkaline Phosphatase 173 U/L (45-117); Anion Gap 7 (5-15); BUN 17 mg/dL (7-18); BUN/Creat Ratio 13.8 RATIO (10-20); Calcium,Total 8.7 mg/dL (8.5-10.1); Chloride 106 mmol/L (98-107); Creatinine, Serum 1.23 mg/dL (0.70-1.30); EST Glomerular Filtration Rate 59 mL/min (>60); Est Glom Filt Rate - Afr Amer 72 mL/min (>60); Estimated Creatinine Clearance 42.48 ml/min; Globulin 3.3 g/dL (2.2-4.2); Glucose 183 mg/dL (74-106); Potassium 4.2 mmol/L (3.5-5.1); Protein, Total 6.8 g/dL (6.4-8.2); Sodium Level 139 mmol/L (136-145)
[2021-11-13 11:06] LABS: Ketone-Dipstick Negative (Negative)
[2021-11-13 11:07] LABS: Leukocyte Esterase-Dipstick 500 /ul (Negative); Occult Blood-Urine 250 /ul (Negative); Red Blood Cells-Urine > 100 SEEN /hpf (0-5); White Blood Cells >100 SEEN /hpf (0-5)
--- NOTE | 2021-11-13 11:41 | EDS_ITS ---
HPI History of Present Illness Chief Complaint: Complaint Informant: patient Narrative Narrative: Patient presents with hematuria. He states he had some surgery done about a month ago. I looked that up and it was a repeat transurethral resection of the prostate due to prostate cancer. He states that he had a catheter in for about 5 days to a week. Its been out since. He was sent home and was supposed to do self-catheterization once a day but he has not done that. He has had a little bit of pink or occasional blood in his urine ever since surgery. He is on Plavix. He had held this for 5 days prior to surgery but restarted at the next day. He is also on aspirin. He states since last night he has had more gross red blood in the urine. He thinks he empties his bladder fully and is still urinating but he states the urine is very red. He had clots initially but is not having them now. He tried to call his urologist office but was told he was not available today. He was referred in here for further evaluation since he does have acute bleeding. [facility] Medical History Cancer Cardiology follow-up encounter Constipation CPAP (continuous positive airway pressure) dependence Former smoker Gastric reflux High cholesterol History of atrial fibrillation History of echocardiogram History of heart attack History of stress test History of ulceration Hypertension Prostate disease Shortness of breath on exertion Sleep apnea Weakness Wears glasses Home Medications ascorbic acid (vitamin C) [Vitamin C] 1,000 mg PO DAILY 11/05/17 [History Last Taken 11/11/17] atenolol 50 mg PO QHS 11/05/17 [History Last Taken 11/17/17 22:00 1] cholecalciferol (vitamin D3) [Vitamin D3] 2,000 unit PO DAILY 11/05/17 [History Last Taken 11/11/17] furosemide [Lasix] 20 mg PO DAILY 11/05/17 [History Last Taken 11/17/17 08:00] isosorbide mononitrate 60 mg PO BID 11/05/17 [History Last Taken 10/11/21 05:00] losartan 100 mg PO QHS 11/05/17 [History Last Taken 11/17/17 22:00 1] omeprazole 20 mg PO DAILY 11/05/17 [History Last Taken 10/11/21 05:00] atorvastatin 40 mg PO QHS 04/25/20 [History Last Taken Unknown] clopidogrel 75 mg PO DAILY 04/25/20 [History Last Taken 10/06/21] coenzyme Q10 200 mg PO DAILY 04/25/20 [History Last Taken Unknown] Acidophilus 100 mg PO DAILY 10/04/21 [History Last Taken Unknown] aspirin 81 mg PO DAILY 10/04/21 [History Last Taken 10/06/21] polyethylene glycol 3350 17 gm PO PRN PRN 10/04/21 [History Last Taken Unknown] ciprofloxacin HCl [Cipro] 500 mg PO BID #14 tab 10/11/21 [Rx Last Taken Unknown] polyethylene glycol 3350 [Miralax] 17 g PO TID #119 g 10/14/21 [Rx Last Taken Unknown] Allergy/AdvReac Type Severity Reaction Status Date / Time No Known Allergies Allergy Verified 11/13/21 09:48 Surgical History History of cardiac catheterization History of coronary artery stent placement History of heart surgery Hx laparoscopic cholecystectomy Hx of CABG Hx of surgical procedure Hx of tonsillectomy Hx of total knee replacement Hx of transurethral resection of prostate Social History Smoking Status: Former smoker ROS ROS ED Constitutional Constitutional ED: Denies chills, fever(s) or subjective ENT ENT ED: Denies rhinorrhea Cardiovascular Cardiovascular: Denies chest pain or palpitations Respiratory/Chest Respiratory/Chest: Denies cough or dyspnea Gastrointestinal Gastrointestinal: Denies abdominal pain, diarrhea, nausea or vomiting Genitourinary Genitourinary ED: Reports hematuria; Denies dysuria or urinary frequency Musculoskeletal Musculoskeletal: Denies back pain Integumentary Denies rash Neurologic Neurologic: Denies headache(s) Endocrine Endocrinology: Denies polydipsia or polyuria Hematologic/Lymphatic Hematologic/Lymphatic: Denies easy bleeding or easy bruising Allergic/Immunologic Allergic/Immunologic ED: Denies mouth swelling or urticaria EXAM Physical Exam Const Vital Signs: 11/13/21 09:47 11/13/21 12:36 Temperature 97.2 F L Temperature Source Temporal Pulse Rate 63 60 Respiratory Rate 18 18 Blood Pressure 168/90 H Blood Pressure Mean 116 Pulse Ox 100 Oxygen Delivery Method Room Air Positive well nourished, well developed and unkempt General Appearance ED: unkempt and well developed; Negative for pallor HEENT normocephalic Eyes General Eye ED: Negative for pale conjunctiva Neck no JVD Resp normal respiratory effort Cardio regular rate GI non-tender GI Narrative: Obese but overall benign. Palpation: soft no CVA tenderness Narrative: Testes are normal. Penis does show some blood coming from the meatus. No purulence. Penis: normal penis and uncircumcised Back/Spine no CVA tenderness Extremity Extremity Narrative: Chronic peripheral edema. General Extremety ED: Yes edema General Extremity: edema Neuro Sensorium / Orientation: alert Psych mental status grossly normal Appearance: unkempt Skin General Skin Exam: Negative for pallor Lesions: no lesions Rashes: no rashes MDM MDM MDM Narrative Medical decision making narrative: Patient's electrolytes show no marked abnormalities. His glucose is a bit elevated at 183. Renal function is still normal. CBC shows normal white count and preserved hemoglobin. Urine does show blood but there is also greater 100 white cells with turbid urine and leukocyte Estrace. This could be consistent with UTI or the increased amount of blood. Culture will be sent. He is given Rocephin here. Archuleta was placed. Has been irrigated. It still has a red tint to it but no more clots. It is improved. I discussed the case with Dr. Howard who knows this patient well and did surgery on him a month ago. He recommend we keep the Archuleta in. We can send a urine culture but hold off on treating the UTI. Patient does not have white count or fever or dysuria. Lab Data Attestation: I reviewed the patient's lab results. Labs: Laboratory Results - last 24 hr 11/13/21 11/13/21 11/13/21 10:32 10:40 10:40 WBC RBC Hgb Hct MCV MCH MCHC RDW Std Deviation RDW Coeff of Randa Plt Count MPV Immature Gran % (Auto) Neut % (Auto) Lymph % (Auto) [place] % (Auto) Eos % (Auto) Baso % (Auto) Absolute Neuts (auto) Absolute Lymphs (auto) Nucleated RBC % PT 12.9 INR 1.0 APTT 27.3 Sodium 139 Potassium 4.2 Chloride 106 Carbon Dioxide 26.0 Anion Gap 7 BUN 17 Creatinine 1.23 Estim Creat Clear Calc 42.48 Est GFR (MDRD) Af Amer 72 Est GFR (MDRD) Non-Af 59 L BUN/Creatinine Ratio 13.8 Glucose 183 H Calcium 8.7 Total Bilirubin 0.60 AST 25 ALT 22 Alkaline Phosphatase 173 H Total Protein 6.8 Albumin 3.5 Globulin 3.3 Albumin/Globulin Ratio 1.1 Urine Color Red Urine Clarity Turbid Urine pH 7.0 Ur Specific [place] 1.010 Urine Protein 500 H Urine Glucose (UA) Normal Urine Ketones Negative Urine Occult Blood 250 H Urine Nitrite Negative Urine Bilirubin Negative Urine Urobilinogen Normal Ur Leukocyte Esterase 500 H Urine RBC > 100 SEEN Urine WBC >100 SEEN Ur Squamous Epith Cells 0 SEEN Urine Bacteria 0 SEEN Urine Mucus 0 SEEN 11/13/21 10:40 WBC 7.1 RBC 4.14 L Hgb 11.5 L Hct 36.7 L MCV 88.6 MCH 27.8 MCHC 31.3 L RDW Std Deviation 45.2 H RDW Coeff of Randa 14.0 Plt Count 221 MPV 10.9 Immature Gran % (Auto) 0.300 Neut % (Auto) 67.8 Lymph % (Auto) 20.3 [place] % (Auto) 7.5 Eos % (Auto) 3.5 Baso % (Auto) 0.6 Absolute Neuts (auto) 4.8 Absolute Lymphs (auto) 1.44 Nucleated RBC % 0 PT INR APTT Sodium Potassium Chloride Carbon Dioxide Anion Gap BUN Creatinine Estim Creat Clear Calc Est GFR (MDRD) Af Amer Est GFR (MDRD) Non-Af BUN/Creatinine Ratio Glucose Calcium Total Bilirubin AST ALT Alkaline Phosphatase Total Protein Albumin Globulin Albumin/Globulin Ratio Urine Color Urine Clarity Urine pH Ur Specific [place] Urine Protein Urine Glucose (UA) Urine Ketones Urine Occult Blood Urine Nitrite Urine Bilirubin Urine Urobilinogen Ur Leukocyte Esterase Urine RBC Urine WBC Ur Squamous Epith Cells Urine Bacteria Urine Mucus Discharge Plan Triage Chief Complaint: Complaint ED Provider: Frank Hoover Dx/Rx/DC Orders Clinical Impression: Hematuria Instructions: ED Hematuria Prescriptions: No Action furosemide [Lasix] 40 MG tablet 20 mg PO DAILY RF: 0 ascorbic acid (vitamin C) [Vitamin C] 1,000 MG tablet 1,000 mg PO DAILY RF: 0 isosorbide mononitrate 60 MG tablet 60 mg PO BID RF: 0 omeprazole 20 MG capsule 20 mg PO DAILY RF: 0 losartan 100 MG tablet 100 mg PO QHS RF: 0 atenolol 50 MG tablet 50 mg PO QHS RF: 0 cholecalciferol (vitamin D3) [Vitamin D3] 2,000 UNIT capsule 2,000 unit PO DAILY RF: 0 atorvastatin 40 MG tablet 40 mg PO QHS RF: 0 clopidogrel 75 MG tablet 75 mg PO DAILY RF: 0 Hold Instructions: Resume on 10/25/21. coenzyme Q10 100 MG capsule 200 mg PO DAILY RF: 0 Acidophilus Capsule 100 mg PO DAILY RF: 0 aspirin 81 mg Capsule 81 mg PO DAILY RF: 0 Hold Instructions: Resume on 10/25/21. polyethylene glycol 3350 17 GM powder in packet 17 gm PO PRN PRN (Reason: Constipation) RF: 0 ciprofloxacin HCl [Cipro] 500 mg tablet 500 mg PO BID Qty: 14 RF: 0 polyethylene glycol 3350 [Miralax] 17 gram/dose powder 17 g PO TID Qty: 119 RF: 0 Primary Care Provider: Mauricio Salcido Referrals: Mauricio Salcido DO [Primary Care Provider] - Kraig Howard MD [STAFF PHYSICIAN] - 3-5 Days Disposition Disposition: Home, Self Care
[2021-11-13 12:36] VITALS: PULSE 60; RESP 18
[2021-11-13 13:22] LABS: Absolute Lymphocyte Count 1.44 X10^3/uL (0.83-4.51); Absolute Neutrophil Count 4.8 X10^3/uL (2.0-7.7); Basophil# 0.04 X10^3/uL; Basophil% 0.6 % (0-1); Eosinophil# 0.25 X10^3/uL; Eosinophils% 3.5 % (0-5); Hematocrit 36.7 % (40-54); Hemoglobin 11.5 g/dL (13.0-16.5); Lymphocyte # 1.44 X10^3/ul (0.83-4.51); Lymphocyte % 20.3 % (19-41); Mean Corp Hgb Conc 31.3 g/dL (32-36); Mean Corpuscular Hgb 27.8 pg (27.0-32.0); Mean Corpuscular Volume 88.6 fL (80-94); Mean Platelet Vol. 10.9 fl (6.2-12.0); Monocyte# 0.53 X10^3/uL; Monocyte% 7.5 % (0-10); NRBC Flagged by Analyzer 0 % (0-5); Neutrophil # 4.83 X10^3/uL (2.7-7.7); Neutrophil % 67.8 % (47-70); Platelet Count 221 K/mm3 (150-450); RBC Distribution Width SD 45.2 fl (35.1-43.9); Red Blood Count 4.14 M/mm3 (4.6-6.2); White Blood Count 7.1 K/mm3 (4.4-11.0)
[2021-11-13 15:51] VITALS: PULSE 68
[2021-11-13] MEDS: Ceftriaxone 1 GM/50 ML BAG IV (16:43)
[2021-11-13 17:02] VITALS: PULSE 70; RESP 18
[2021-11-13 17:09] VITALS: PULSE 70; RESP 18
== END 2021-11-13 17:19 | disposition home or self-care (01) ==
PROVIDERS: Emergency Provider Emergency Medicine; PCP Family Medicine; Visit Provider Emergency Medicine
DX: R31.9 Hematuria, unspecified (principal); C61 Malignant neoplasm of prostate; I10 Essential (primary) hypertension; I25.2 Old myocardial infarction; E78.00 Pure hypercholesterolemia, unspecified; K21.9 Gastro-esophageal reflux disease without esophagitis; Z95.1 Presence of aortocoronary bypass graft; Z95.5 Presence of coronary angioplasty implant and graft; Z79.82 Long term (current) use of aspirin; Z79.02 Long term (current) use of antithrombotics/antiplatelets; Z79.899 Other long term (current) drug therapy; Z87.891 Personal history of nicotine dependence
CPT/HCPCS: 51702; 80048; 80053; 81001; 85025; 85610; 85730; 87077; 87086; 87088; 87186; 96365; 99283; A4216

== ENCOUNTER 2021-11-30 08:09 | Emergency (ER) | payer MEDICARE, OTHER, SELFPAY ==
[2021-11-30 08:10] VITALS: BP 154/98; PULSE 62; RESP 16; TEMP 36.2; O2SAT 96; BMI 38.5
--- NOTE | 2021-11-30 08:52 | EX.ED.DYSGE1 ---
HPI History of Present Illness Chief Complaint: Complaint Informant: patient Onset/Context/Timing Onset: Today Context: Sudden Onset Timing: Continuous Quality: Urgency Location: Suprapubic Worsened by: Sensation to urinate Relieved by: Nothing Narrative Narrative: Patient presents with hematuria that began today. Patient states she woke up this morning and noticed blood in his urine. Patient states that his catheter became dislodged from the tape on his right thigh. Patient admits to some urinary urgency. Patient states this is worse whenever he feels that he has to urinate. Patient denies any fevers or chills. Patient denies any nausea or vomiting. Patient denies any back pain. [facility] Medical History Cancer Cardiology follow-up encounter Constipation CPAP (continuous positive airway pressure) dependence Former smoker Gastric reflux High cholesterol History of atrial fibrillation History of echocardiogram History of heart attack History of stress test History of ulceration Hypertension Prostate disease Shortness of breath on exertion Sleep apnea Weakness Wears glasses Home Medications ascorbic acid (vitamin C) [Vitamin C] 1,000 mg PO DAILY 11/05/17 [History Last Taken 11/11/17] atenolol 50 mg PO QHS 11/05/17 [History Last Taken 11/17/17 22:00 1] cholecalciferol (vitamin D3) [Vitamin D3] 2,000 unit PO DAILY 11/05/17 [History Last Taken 11/11/17] furosemide [Lasix] 20 mg PO DAILY 11/05/17 [History Last Taken 11/17/17 08:00] isosorbide mononitrate 60 mg PO BID 11/05/17 [History Last Taken 10/11/21 05:00] losartan 100 mg PO QHS 11/05/17 [History Last Taken 11/17/17 22:00 1] omeprazole 20 mg PO DAILY 11/05/17 [History Last Taken 10/11/21 05:00] atorvastatin 40 mg PO QHS 04/25/20 [History Last Taken Unknown] clopidogrel 75 mg PO DAILY 04/25/20 [History Last Taken 10/06/21] coenzyme Q10 200 mg PO DAILY 04/25/20 [History Last Taken Unknown] Acidophilus 100 mg PO DAILY 10/04/21 [History Last Taken Unknown] aspirin 81 mg PO DAILY 10/04/21 [History Last Taken 10/06/21] polyethylene glycol 3350 17 gm PO PRN PRN 10/04/21 [History Last Taken Unknown] ciprofloxacin HCl [Cipro] 500 mg PO BID #14 tab 10/11/21 [Rx Last Taken Unknown] polyethylene glycol 3350 [Miralax] 17 g PO TID #119 g 10/14/21 [Rx Last Taken Unknown] ciprofloxacin HCl 500 mg PO BID #14 tablet 11/30/21 [Rx Last Taken Unknown] Allergy/AdvReac Type Severity Reaction Status Date / Time No Known Allergies Allergy Verified 11/30/21 08:11 Surgical History History of cardiac catheterization History of coronary artery stent placement History of heart surgery Hx laparoscopic cholecystectomy Hx of CABG Hx of surgical procedure Hx of tonsillectomy Hx of total knee replacement Hx of transurethral resection of prostate Social History Smoking Status: Former smoker ROS ROS ED Constitutional Constitutional ED: Denies chills or fever(s) Eyes Eyes: Denies blurry vision or change in vision ENT ENT ED: Denies rhinorrhea or sore throat Cardiovascular Cardiovascular: Denies chest pain or palpitations Respiratory/Chest Respiratory/Chest: Denies cough or dyspnea Gastrointestinal Gastrointestinal: Denies nausea or vomiting Genitourinary Genitourinary ED: Reports hematuria; Denies dysuria Musculoskeletal Musculoskeletal: Denies back pain or neck pain Integumentary Denies abscess or rash Neurologic Neurologic: Denies headache(s) or weakness Allergic/Immunologic Allergic/Immunologic ED: Denies mouth swelling or urticaria EXAM Physical Exam Const Vital Signs: 11/30/21 08:10 11/30/21 11:02 Temperature 97.2 F L Temperature Source Temporal Pulse Rate 62 Respiratory Rate 16 68 H Blood Pressure 154/98 H Blood Pressure Mean 116 Pulse Ox 96 Oxygen Delivery Method Room Air Positive well nourished and well developed General Appearance ED: well developed HEENT Reports moist mucous membranes Neck supple and no JVD Resp normal respiratory effort and clear to auscultation bilaterally Cardio regular rate, regular rhythm and no murmurs GI normal to inspection, nondistended, normoactive bowel sounds and non-tender Palpation: soft Extremity normal to inspection General Extremety ED: Negative for edema or tenderness General Extremity: Negative for edema Neuro oriented x3, CN's II-XII intact bilaterally and no sensory deficits noted Sensorium / Orientation: alert Motor Exam: strength 5/5 throughout Psych mental status grossly normal Skin no rashes or lesions noted MDM MDM MDM Narrative Medical decision making narrative: Urinalysis was obtained. Leukocyte esterase is elevated at 500. There are 50-100 white blood cells noted. There are 0-5 red blood cells. Urine culture was ordered. Patient was given a dose of Cipro here. Patient was given a prescription for Cipro. Patient was instructed to follow-up with his primary care physician in 5 to 7 days. Patient was also instructed to follow-up with his urologist as scheduled. Patient understood and was agreeable with the plan. All questions were answered. Lab Data Labs: Laboratory Results - last 24 hr 11/30/21 09:35 Urine Color Yellow Urine Clarity Sl. Cloudy Urine pH 5.0 Ur Specific [place] 1.010 Urine Protein 30 H Urine Glucose (UA) Normal Urine Ketones Negative Urine Occult Blood 250 H Urine Nitrite Negative Urine Bilirubin Negative Urine Urobilinogen Normal Ur Leukocyte Esterase 500 H Urine RBC 0-5 SEEN Urine WBC 50-100 SEEN Ur Squamous Epith Cells 0 SEEN Urine Bacteria 0 SEEN Urine Mucus 0 SEEN Discharge Plan Triage Chief Complaint: Complaint ED Provider: Vinayak Jones Dx/Rx/DC Orders Clinical Impression: Urinary tract infection Instructions: ED Urinary Tract Infections in Men Prescriptions: New ciprofloxacin HCl [ciprofloxacin HCl] 500 MG tablet 500 mg PO BID Qty: 14 RF: 0 No Action furosemide [Lasix] 40 MG tablet 20 mg PO DAILY RF: 0 ascorbic acid (vitamin C) [Vitamin C] 1,000 MG tablet 1,000 mg PO DAILY RF: 0 isosorbide mononitrate 60 MG tablet 60 mg PO BID RF: 0 omeprazole 20 MG capsule 20 mg PO DAILY RF: 0 losartan 100 MG tablet 100 mg PO QHS RF: 0 atenolol 50 MG tablet 50 mg PO QHS RF: 0 cholecalciferol (vitamin D3) [Vitamin D3] 2,000 UNIT capsule 2,000 unit PO DAILY RF: 0 atorvastatin 40 MG tablet 40 mg PO QHS RF: 0 clopidogrel 75 MG tablet 75 mg PO DAILY RF: 0 Hold Instructions: Resume on 10/25/21. coenzyme Q10 100 MG capsule 200 mg PO DAILY RF: 0 Acidophilus Capsule 100 mg PO DAILY RF: 0 aspirin 81 mg Capsule 81 mg PO DAILY RF: 0 Hold Instructions: Resume on 10/25/21. polyethylene glycol 3350 17 GM powder in packet 17 gm PO PRN PRN (Reason: Constipation) RF: 0 ciprofloxacin HCl [Cipro] 500 mg tablet 500 mg PO BID Qty: 14 RF: 0 polyethylene glycol 3350 [Miralax] 17 gram/dose powder 17 g PO TID Qty: 119 RF: 0 Primary Care Provider: Mauricio Salcido Referrals: Mauricio Salcido DO [Primary Care Provider] - 3-5 Days Kraig Howard MD [STAFF PHYSICIAN] - [facility] appointment Disposition Disposition: Home, Self Care Discharge Date/Time: 11/30/21 11:03
[2021-11-30 09:46] LABS: Bacteria 0 SEEN /hpf (None Seen); Mucous, Urine 0 SEEN /hpf (<or=2+); Squamous Epithelial Cells - UA 0 SEEN /hpf (0-5)
[2021-11-30 09:56] LABS: Color, Urine Yellow (Yellow); Glucose, Dipstick Normal (Normal); Ketone-Dipstick Negative (Negative); Leukocyte Esterase-Dipstick 500 /ul (Negative); Nitrite-Dipstick Negative (Negative); Occult Blood-Urine 250 /ul (Negative); Protein-Dipstick 30 mg/dl (Negative); Urine Bilirubin Dipstick Negative (Negative); Urine Clarity Sl. Cloudy (Clear); Urine Urobilinogen Normal (Normal)
[2021-11-30 10:02] LABS: Red Blood Cells-Urine 0-5 SEEN /hpf (0-5); White Blood Cells 50-100 SEEN /hpf (0-5)
[2021-11-30] MEDS: Ciprofloxacin 500 MG Tablet PO (10:55)
[2021-11-30 11:02] VITALS: RESP 68
== END 2021-11-30 11:03 | disposition home or self-care (01) ==
PROVIDERS: Emergency Provider Emergency Medicine; PCP Family Medicine; Visit Provider Emergency Medicine
DX: N39.0 Urinary tract infection, site not specified (principal); I48.91 Unspecified atrial fibrillation; I10 Essential (primary) hypertension; E78.00 Pure hypercholesterolemia, unspecified; Z87.891 Personal history of nicotine dependence; K21.9 Gastro-esophageal reflux disease without esophagitis; I25.2 Old myocardial infarction; G47.30 Sleep apnea, unspecified
CPT/HCPCS: 81001; 99283

== ENCOUNTER 2021-12-14 19:50 | Emergency (ER) | payer MEDICARE, OTHER, SELFPAY ==
[2021-12-14 19:51] VITALS: BP 168/91; PULSE 81; RESP 16; TEMP 35.7; O2SAT 100; BMI 38.5
--- NOTE | 2021-12-14 20:12 | EX.ED.DYSGE1 ---
HPI History of Present Illness Chief Complaint: Complaint Detail of Chief Complaint: Painless gross hematuria Informant: patient and family Onset/Context/Timing Onset: Hours Context: Sudden Onset Timing: Continuous Quality: Gross hematuria Location: Current Severity: Mild Maximum Severity: Mild Worsened by: History prostate cancer with extension to the bladder neck per son Relieved by: Nothing Associated Symptoms Associated Symptoms: Patient on aspirin and Plavix Narrative Narrative: Patient is a 86-year-old male who has history of urinary obstruction due to BPH and prostate cancer. He underwent transurethral resection of the prostate October 11. He was seen approximately 3 weeks ago for urinary retention had a Archuleta placed. The Archuleta was removed at urologist office on Saturday. He denies fever, chills night sweats. He denies pain. He denies bruising easily. He has aspirin and Plavix. Is on no anticoagulant. Review of prior records indicates he had pyuria when he was seen several weeks ago. He was treated for urinary tract infection. Prior similar symptoms: Yes Recent Illness/Hospitalization: Yes PFSH PFS Medical History Cancer Cardiology follow-up encounter Constipation CPAP (continuous positive airway pressure) dependence Encounter for screening for COVID-19 Former smoker Gastric reflux High cholesterol History of atrial fibrillation History of echocardiogram History of heart attack History of stress test History of ulceration Hypertension Prostate disease Shortness of breath on exertion Sleep apnea Weakness Wears glasses Home Medications ascorbic acid (vitamin C) [Vitamin C] 1,000 mg PO DAILY 11/05/17 [History Last Taken 11/11/17] atenolol 50 mg PO QHS 11/05/17 [History Last Taken 11/17/17 22:00 1] cholecalciferol (vitamin D3) [Vitamin D3] 2,000 unit PO DAILY 11/05/17 [History Last Taken 11/11/17] furosemide [Lasix] 20 mg PO DAILY 11/05/17 [History Last Taken 11/17/17 08:00] isosorbide mononitrate 60 mg PO BID 11/05/17 [History Last Taken 10/11/21 05:00] losartan 100 mg PO QHS 11/05/17 [History Last Taken 11/17/17 22:00 1] omeprazole 20 mg PO DAILY 11/05/17 [History Last Taken 10/11/21 05:00] atorvastatin 40 mg PO QHS 04/25/20 [History Last Taken Unknown] clopidogrel 75 mg PO DAILY 04/25/20 [History Last Taken 10/06/21] coenzyme Q10 200 mg PO DAILY 04/25/20 [History Last Taken Unknown] Acidophilus 100 mg PO DAILY 10/04/21 [History Last Taken Unknown] aspirin 81 mg PO DAILY 10/04/21 [History Last Taken 10/06/21] polyethylene glycol 3350 17 gm PO PRN PRN 10/04/21 [History Last Taken Unknown] ciprofloxacin HCl [Cipro] 500 mg PO BID #14 tab 10/11/21 [Rx Last Taken Unknown] polyethylene glycol 3350 [Miralax] 17 g PO TID #119 g 10/14/21 [Rx Last Taken Unknown] ciprofloxacin HCl 500 mg PO BID #14 tablet 11/30/21 [Rx Last Taken Unknown] sulfamethoxazole-trimethoprim 1 tab PO BID #14 tablet 12/14/21 [Rx Last Taken Unknown] Allergy/AdvReac Type Severity Reaction Status Date / Time No Known Allergies Allergy Verified 12/14/21 19:53 Surgical History History of cardiac catheterization History of coronary artery stent placement History of heart surgery Hx laparoscopic cholecystectomy Hx of CABG Hx of surgical procedure Hx of tonsillectomy Hx of total knee replacement Hx of transurethral resection of prostate Social History (Updated 12/14/21 @ 20:[address] Rafal Wong MD) household members: other Smoking Status: Former smoker substance use type: does not use ROS ROS ED Constitutional Constitutional ED: Reports other Details: Recent chemotherapy. ; Denies chills, fever(s), subjective, sweats or weight loss Eyes Eyes: Denies blurry vision or change in vision Cardiovascular Cardiovascular: Denies chest pain or palpitations Respiratory/Chest Respiratory/Chest: Denies dyspnea or dyspnea on exertion Gastrointestinal Gastrointestinal: Denies abdominal pain, diarrhea, nausea or vomiting Genitourinary Genitourinary ED: Reports hematuria and other Details: Urgency ; Denies dysuria or urinary frequency Musculoskeletal Musculoskeletal: Denies arthralgias, back pain, myalgias or neck pain Integumentary Denies rash Neurologic Neurologic: Denies paresthesias or weakness Hematologic/Lymphatic Hematologic/Lymphatic: Reports anemia and easy bruising; Denies easy bleeding EXAM Physical Exam Const Vital Signs: 12/14/21 19:51 Temperature 96.2 F L Temperature Source Temporal Pulse Rate 81 Respiratory Rate 16 Blood Pressure 168/91 H Blood Pressure Mean 116 Pulse Ox 100 Oxygen Delivery Method Room Air Positive well nourished, well developed and obese General Appearance ED: well developed and NAD; Negative for cyanotic, diaphoretic or pallor Nutritional Appearance: obese HEENT Reports moist mucous membranes Negative for trauma or tenderness Eyes PERRL and EOMs intact bilaterally General Eye ED: Negative for pale conjunctiva or scleral icterus Neck No no lymphadenopathy, No supple and No no JVD Resp No normal respiratory effort and No clear to auscultation bilaterally Cardio Negative for regular rate, regular rhythm, S1 normal heart sound, S2 normal heart sound or no murmurs GI non-tender, non-distended and no masses GI Narrative: Patient has evidence of yeast infection both right and left inguinal area worse on the left. Auscultation: normoactive bowel sounds Palpation: soft Narrative: Uncircumcised male with blood noted at the meatus. He was able to void. The urine is a huong color. There are no clots. Bladder scan reveals no urine in the bladder post void. Testes are centered bilaterally. There is no evidence of inguinal hernia. Back/Spine no CVA tenderness Thoracic Spine / Upper Back: Negative for thoracic spinal tenderness or paraspinal muscle tenderness Extremity Extremity Narrative: Mild pitting edema the lower extremity. General Extremety ED: Yes edema; Negative for tenderness General Extremity: edema Neuro oriented x3 and CN's II-XII intact bilaterally Neuro Narrative: Moves all amities. Sensorium / Orientation: alert Psych mental status grossly normal Skin No no rashes or lesions noted and no wounds Skin Narrative: Tinea Curs General Skin Exam: Negative for jaundice or pallor MDM MDM MDM Narrative Medical decision making narrative: Will obtain UA since he had an infection last visit. Especially since he had an indwelling Archuleta for 3 weeks. Suspect his bleeding is due to the prostate cancer. Since there is no post residual urine noted and he is able to void there is no need at this time to reinsert a Archuleta. Son informed that the blood started after he attempted to self cath himself. Patient's urine is consistent with infection. Urine culture was sent. He was treated with Bactrim. He received his first dose in the emergency department. He is to follow-up with his urologist. Lab Data Attestation: I reviewed the patient's lab results. Labs: Laboratory Results - last 24 hr 12/14/21 21:30 Urine Color Red Urine Clarity Cloudy Urine pH 5.0 Ur Specific [place] 1.010 Urine Protein 100 H Urine Glucose (UA) Normal Urine Ketones 5 H Urine Occult Blood 250 H Urine Nitrite Negative Urine Bilirubin Negative Urine Urobilinogen Normal Ur Leukocyte Esterase 500 H Urine RBC > 100 SEEN Urine WBC >100 SEEN Ur Squamous Epith Cells 0 SEEN Urine Bacteria 1+ Urine Mucus 0 SEEN Discharge Plan Triage Chief Complaint: Complaint ED Provider: Rafal Wong Dx/Rx/DC Orders Clinical Impression: Gross hematuria, Prostate cancer, Self-catheterizes urinary bladder, Complicated urinary tract infection Instructions: Catheter Insert Man Steps, ED Hematuria, ED Bladder Infection, Male (Adult) Prescriptions: New sulfamethoxazole-trimethoprim [sulfamethoxazole-trimethoprim] 1 TABLET tablet 1 tab PO BID Qty: 14 RF: 0 No Action furosemide [Lasix] 40 MG tablet 20 mg PO DAILY RF: 0 ascorbic acid (vitamin C) [Vitamin C] 1,000 MG tablet 1,000 mg PO DAILY RF: 0 isosorbide mononitrate 60 MG tablet 60 mg PO BID RF: 0 omeprazole 20 MG capsule 20 mg PO DAILY RF: 0 losartan 100 MG tablet 100 mg PO QHS RF: 0 atenolol 50 MG tablet 50 mg PO QHS RF: 0 cholecalciferol (vitamin D3) [Vitamin D3] 2,000 UNIT capsule 2,000 unit PO DAILY RF: 0 atorvastatin 40 MG tablet 40 mg PO QHS RF: 0 clopidogrel 75 MG tablet 75 mg PO DAILY RF: 0 Hold Instructions: Resume on 10/25/21. coenzyme Q10 100 MG capsule 200 mg PO DAILY RF: 0 Acidophilus Capsule 100 mg PO DAILY RF: 0 aspirin 81 mg Capsule 81 mg PO DAILY RF: 0 Hold Instructions: Resume on 10/25/21. polyethylene glycol 3350 17 GM powder in packet 17 gm PO PRN PRN (Reason: Constipation) RF: 0 ciprofloxacin HCl [Cipro] 500 mg tablet 500 mg PO BID Qty: 14 RF: 0 polyethylene glycol 3350 [Miralax] 17 gram/dose powder 17 g PO TID Qty: 119 RF: 0 ciprofloxacin HCl [ciprofloxacin HCl] 500 MG tablet 500 mg PO BID Qty: 14 RF: 0 Primary Care Provider: Mauricio Salcido Referrals: Mauricio Salcido DO [Primary Care Provider] - Kraig Howard MD [STAFF PHYSICIAN] - 3-5 Days if not improving Disposition Disposition: Home, Self Care
[2021-12-14 21:33] LABS: Mucous, Urine 0 SEEN /hpf (<or=2+); Squamous Epithelial Cells - UA 0 SEEN /hpf (0-5)
[2021-12-14 21:47] LABS: Color, Urine Red (Yellow); Glucose, Dipstick Normal (Normal); Ketone-Dipstick 5 mg/dl (Negative); Leukocyte Esterase-Dipstick 500 /ul (Negative); Nitrite-Dipstick Negative (Negative); Occult Blood-Urine 250 /ul (Negative); Protein-Dipstick 100 mg/dl (Negative); Urine Bilirubin Dipstick Negative (Negative); Urine Clarity Cloudy (Clear); Urine Urobilinogen Normal (Normal)
[2021-12-14 21:59] LABS: Bacteria 1+ /hpf (None Seen); Red Blood Cells-Urine > 100 SEEN /hpf (0-5); White Blood Cells >100 SEEN /hpf (0-5)
[2021-12-14] MEDS: Smz/Tmp Ds Tablet 1 TABLET PO (22:25)
== END 2021-12-14 22:26 | disposition home or self-care (01) ==
PROVIDERS: Emergency Provider Emergency Medicine; PCP Family Medicine; Visit Provider Emergency Medicine
DX: N39.0 Urinary tract infection, site not specified (principal); C61 Malignant neoplasm of prostate; R31.0 Gross hematuria; Z80.42 Family history of malignant neoplasm of prostate; E78.00 Pure hypercholesterolemia, unspecified; I10 Essential (primary) hypertension; Z87.891 Personal history of nicotine dependence; N40.1 Benign prostatic hyperplasia with lower urinary tract symptoms; Z79.82 Long term (current) use of aspirin; Z99.89 Dependence on other enabling machines and devices; G47.30 Sleep apnea, unspecified; Z95.1 Presence of aortocoronary bypass graft; Z95.5 Presence of coronary angioplasty implant and graft
CPT/HCPCS: 81001; 87077; 87086; 87088; 87186; 99283

== ENCOUNTER 2023-01-11 10:35 | Inpatient (IN) | payer MEDICARE, OTHER, SELFPAY ==
[2023-01-11] VITALS (8 sets, daily range): BP systolic 111–146; BP diastolic 48–74; PULSE 59–87; RESP 14–18; TEMP 36.1–37.3; O2SAT 96–100; BMI 30.5; BMI 30.1
--- NOTE | 2023-01-11 11:24 | EX.ED.DYSGE1 ---
HPI History of Present Illness Chief Complaint: Archuleta C/O Informant: patient and family Narrative Narrative: Patient is an 87-year-old male with history of prostate cancer, BPH, chronic systolic heart failure, GERD presneting with Archuleta catheter dysfunction. Patient notes that he saw Dr. Howard yesterday and had his Archuleta catheter replaced because it was leaking urine around it. Patient was also placed on antibiotics yesterday but they did not call the name of it. Do not think urine test were sent. About a month ago patient had some Archuleta trauma from rolling in bed. Patient also had some mild brown bleeding at the meatus. He notes he has not had much urine drained out since his Archuleta was replaced yesterday and he has not emptied the bag since yesterday. Patient also goes on to comment that he has been feeling more weak and tired lately. This is really progressed over the past 3 to 4 weeks. He does not have any energy. He feels lightheaded when he stands up. He has been eating and drinking less. He does have an outpatient CT scheduled for later today by Dr. Howard. No other complaints at this time. [facility] Medical History Cancer Cardiology follow-up encounter Constipation CPAP (continuous positive airway pressure) dependence Encounter for screening for COVID-19 Former smoker Gastric reflux High cholesterol History of atrial fibrillation History of echocardiogram History of heart attack History of stress test History of ulceration Hypertension Prostate disease Shortness of breath on exertion Sleep apnea Weakness Wears glasses Home Medications ascorbic acid (vitamin C) 1,000 mg tablet (Vitamin C) 1,000 mg PO DAILY SUPPLEMENT 11/05/17 [History Last Taken 11/11/17] atenolol 50 mg tablet 50 mg PO QHS blood pressure 11/05/17 [History Last Taken 11/17/17 22:00 1] cholecalciferol (vitamin D3) 50 mcg (2,000 unit) capsule (Vitamin D3) 2,000 unit PO DAILY SUPPLEMENT 11/05/17 [History Last Taken 11/11/17] furosemide 40 mg tablet (Lasix) 20 mg PO DAILY DIURETIC/water pill 11/05/17 [History Last Taken 11/17/17 08:00] isosorbide mononitrate 60 mg tablet,extended release 24 hr 60 mg PO BID HEART 11/05/17 [History Last Taken 10/11/21 05:00] losartan 100 mg tablet 100 mg PO QHS blood pressure 11/05/17 [History Last Taken 11/17/17 22:00 1] omeprazole 20 mg capsule,delayed release 20 mg PO DAILY REFLUX 11/05/17 [History Last Taken 10/11/21 05:00] atorvastatin 40 mg tablet 40 mg PO QHS 04/25/20 [History Last Taken Unknown] clopidogrel 75 mg tablet 75 mg PO DAILY 04/25/20 [History Last Taken 10/06/21] coenzyme Q10 100 mg capsule 200 mg PO DAILY 04/25/20 [History Last Taken Unknown] Lactobacillus acidophilus (Acidophilus capsule) 100 mg PO DAILY 10/04/21 [History Last Taken Unknown] aspirin 81 mg capsule 81 mg PO DAILY 10/04/21 [History Last Taken 10/06/21] polyethylene glycol 3350 17 gram oral powder packet 17 gm PO PRN PRN Constipation 10/04/21 [History Last Taken Unknown] ciprofloxacin HCl 500 mg tablet (Cipro) 500 mg PO BID #14 tabs 10/11/21 [Rx Last Taken Unknown] polyethylene glycol 3350 17 gram/dose oral powder (Miralax) 17 g PO TID #119 grams 10/14/21 [Rx Last Taken Unknown] ciprofloxacin HCl 500 mg tablet 500 mg PO BID #14 TABLETS 11/30/21 [Rx Last Taken Unknown] sulfamethoxazole 800 mg-trimethoprim 160 mg tablet 1 tab PO BID #14 TABLETS 12/14/21 [Rx Last Taken Unknown] Allergy/AdvReac Type Severity Reaction Status Date / Time No Known Allergies Allergy Verified 01/11/23 10:36 Surgical History History of cardiac catheterization History of coronary artery stent placement History of heart surgery Hx laparoscopic cholecystectomy Hx of CABG Hx of surgical procedure Hx of tonsillectomy Hx of total knee replacement Hx of transurethral resection of prostate Social History household members: other Smoking Status: Former smoker substance use type: does not use ROS ROS ED Constitutional Constitutional ED: Reports weight loss and other Details: Decreased appetite, generalized malaise ; Denies chills or fever(s) Eyes Eyes: Denies blurry vision or change in vision ENT ENT ED: Denies sore throat Cardiovascular Cardiovascular: Denies chest pain Respiratory/Chest Respiratory/Chest: Denies cough or dyspnea Gastrointestinal Gastrointestinal: Reports constipation; Denies abdominal pain, diarrhea, nausea or vomiting Genitourinary Genitourinary ED: Reports other Details: Archuleta catheter malfunction, bleeding from meatus Musculoskeletal Musculoskeletal: Denies arthralgias or myalgias Integumentary Denies rash Neurologic Neurologic: Reports weakness; Denies headache(s) or paresthesias Psychiatric Psychiatric: Denies anxiety Hematologic/Lymphatic Hematologic/Lymphatic: Denies anemia or easy bleeding EXAM Physical Exam Const Vital Signs: 01/11/23 10:36 Temperature 98 F Temperature Source Temporal Pulse Rate 87 Respiratory Rate 14 Blood Pressure 111/63 Blood Pressure Mean 79 Pulse Ox 97 Oxygen Delivery Method Room Air Positive well nourished and well developed General Appearance ED: well developed, NAD and pallor HEENT Reports moist mucous membranes Eyes PERRL and EOMs intact bilaterally General Eye ED: Yes pale conjunctiva Neck supple and no JVD Chest Wall inspection of chest normal Resp normal respiratory effort and clear to auscultation bilaterally Cardio regular rate, regular rhythm and no murmurs GI normal to inspection, nondistended, normoactive bowel sounds and non-tender GI Narrative: Brown stool on rectal exam Narrative: Archuleta catheter in place. Small amount of urine at the meatus as well as dark brown blood. Tenderness with palpation of the penis. Normal testicular exam. Extremity normal to inspection General Extremety ED: Negative for edema or tenderness General Extremity: Negative for edema Neuro oriented x3 Neuro Narrative: No focal deficits Sensorium / Orientation: alert Psych mental status grossly normal Skin no rashes or lesions noted and no wounds General Skin Exam: pallor MDM MDM MDM Narrative Medical decision making narrative: Patient's evaluated for abnormal drainage of his Archuleta catheter. Upon evaluation patient is noticed to be generally weak. He is quite pale. He denies any black or blood in his stool. He has been having ongoing bleeding but his urine is dark in the ER. Urine culture is hence and urinalysis is consistent with UTI. Prior cultures reviewed which show Enterococcus faecalis so patient be put on Zosyn. Patient is also found to be anemic. He does report increased dyspnea on exertion and has a significant cardiac history including CO. Will obtain an EKG. He is not having chest pain at this time however I do think patient would benefit from a blood transfusion given his coronary artery disease. A unit is sent. Given this is an acute anemia he will be admitted for further work-up of this. Patient and son agreeable with plan of care. Patient is hemodynamically stable at this time. Differential diagnosis?obstructed Archuleta catheter, urinary tract infection, symptomatic anemia, pyelonephritis (less likely as patient does not have fever, leukocytosis or flank pain) Lab Data Attestation: I reviewed the patient's lab results. Labs: Laboratory Results - last 24 hr 01/11/23 01/11/23 01/11/23 11:50 11:50 11:50 WBC 6.7 RBC 2.82 L Hgb 7.4 L Hct 23.4 L MCV 83.0 MCH 26.2 L MCHC 31.6 L RDW Std Deviation 46.9 H RDW Coeff of Randa 15.6 H Plt Count 316 MPV 9.4 Immature Gran % (Auto) 0.400 Neut % (Auto) 63.6 Lymph % (Auto) 21.3 [place] % (Auto) 11.2 H Eos % (Auto) 3.1 Baso % (Auto) 0.4 Absolute Neuts (auto) 4.3 Absolute Lymphs (auto) 1.43 Nucleated RBC % 0 Sodium 137 Potassium 3.7 Chloride 103 Carbon Dioxide 24.0 Anion Gap 10 BUN 24 H Creatinine 1.19 Est GFR (MDRD) Af Amer 74 Est GFR (MDRD) Non-Af 62 BUN/Creatinine Ratio 20.2 H Glucose 180 H Calcium 8.7 Urine Color Urine Clarity Urine pH Ur Specific [place] Urine Protein Urine Glucose (UA) Urine Ketones Urine Occult Blood Urine Nitrite Urine Bilirubin Urine Urobilinogen Ur Leukocyte Esterase Urine RBC Urine WBC Ur Squamous Epith Cells Urine Bacteria Urine Mucus Blood Type O POSITIVE Antibody Screen NEGATIVE Crossmatch 01/11/23 01/11/23 11:50 12:30 WBC RBC Hgb Hct MCV MCH MCHC RDW Std Deviation RDW Coeff of Randa Plt Count MPV Immature Gran % (Auto) Neut % (Auto) Lymph % (Auto) [place] % (Auto) Eos % (Auto) Baso % (Auto) Absolute Neuts (auto) Absolute Lymphs (auto) Nucleated RBC % Sodium Potassium Chloride Carbon Dioxide Anion Gap BUN Creatinine Est GFR (MDRD) Af Amer Est GFR (MDRD) Non-Af BUN/Creatinine Ratio Glucose Calcium Urine Color Brown Urine Clarity Cloudy Urine pH 5.0 Ur Specific [place] 1.010 Urine Protein 100 H Urine Glucose (UA) Normal Urine Ketones Negative Urine Occult Blood 250 H Urine Nitrite Negative Urine Bilirubin Negative Urine Urobilinogen Normal Ur Leukocyte Esterase 500 H Urine RBC 25-50 SEEN Urine WBC >100 SEEN Ur Squamous Epith Cells 0 SEEN Urine Bacteria 2+ Urine Mucus 0 SEEN Blood Type Antibody Screen Crossmatch See Detail Rhythm Strip Rhythm Strip: Sinus Rhythm Rate: 64 Ectopy: PVC(s) EKG Initial EKG: Attestation: I personally reviewed and interpreted this EKG as follows: Interpretation: Sinus Rhythm Comments: Normal sinus rhythm at a rate of 64 bpm with occasional PVC Left axis Right bundle branch block Normal ST segments Prior EKG tracings: available for review Prior: Changed (Compared to prior EKG patient has PVC and some decreased amplitude) Discharge Plan Triage Chief Complaint: Archuleta C/O ED Provider: Shelby Emerson Dx/Rx/DC Orders Clinical Impression: Urinary tract infection associated with catheterization of urinary tract, Symptomatic anemia Prescriptions: No Action furosemide [Lasix] 40 MG tablet 20 mg PO DAILY ascorbic acid (vitamin C) [Vitamin C] 1,000 MG tablet 1,000 mg PO DAILY isosorbide mononitrate 60 MG tablet 60 mg PO BID omeprazole 20 MG capsule 20 mg PO DAILY losartan 100 MG tablet 100 mg PO QHS atenolol 50 MG tablet 50 mg PO QHS cholecalciferol (vitamin D3) [Vitamin D3] 2,000 UNIT capsule 2,000 unit PO DAILY atorvastatin 40 MG tablet 40 mg PO QHS clopidogrel 75 MG tablet 75 mg PO DAILY Hold Instructions: Resume on 10/25/21. Label Comments: LAST DOSE 10/05/21 STOP FOR OR coenzyme Q10 100 MG capsule 200 mg PO DAILY Acidophilus Capsule 100 mg PO DAILY aspirin 81 mg Capsule 81 mg PO DAILY Hold Instructions: Resume on 10/25/21. Label Comments: LAST DOSE 10/05/21 polyethylene glycol 3350 17 GM powder in packet 17 gm PO PRN PRN (Reason: Constipation) ciprofloxacin HCl [Cipro] 500 mg tablet 500 mg PO BID Qty: 14 0RF polyethylene glycol 3350 [Miralax] 17 gram/dose powder 17 g PO TID Qty: 119 0RF ciprofloxacin HCl [ciprofloxacin HCl] 500 MG tablet 500 mg PO BID Qty: 14 0RF sulfamethoxazole-trimethoprim [sulfamethoxazole-trimethoprim] 1 TABLET tablet 1 tab PO BID Qty: 14 0RF Primary Care Provider: Mauricio Salcido Referrals: Mauricio Salcido DO [Primary Care Provider] - Disposition Disposition: Acute Care [facility]
[2023-01-11 12:04] LABS: Absolute Lymphocyte Count 1.43 X10^3/uL (0.83-4.51); Absolute Neutrophil Count 4.3 X10^3/uL (2.0-7.7); Basophil# 0.03 X10^3/uL; Basophil% 0.4 % (0-1); Eosinophil# 0.21 X10^3/uL; Eosinophils% 3.1 % (0-5); Hematocrit 23.4 % (40-54); Hemoglobin 7.4 g/dL (13.0-16.5); Lymphocyte # 1.43 X10^3/ul (0.83-4.51); Lymphocyte % 21.3 % (19-41); Mean Corp Hgb Conc 31.6 g/dL (32-36); Mean Corpuscular Hgb 26.2 pg (27.0-32.0); Mean Platelet Vol. 9.4 fl (6.2-12.0); Monocyte# 0.75 X10^3/uL; Monocyte% 11.2 % (0-10); NRBC Flagged by Analyzer 0 % (0-5); Neutrophil # 4.27 X10^3/uL (2.7-7.7); Neutrophil % 63.6 % (47-70); Platelet Count 316 K/mm3 (150-450); RBC Distribution Width CV 15.6 % (11.6-14.6); RBC Distribution Width SD 46.9 fl (35.1-43.9); Red Blood Count 2.82 M/mm3 (4.6-6.2); White Blood Count 6.7 K/mm3 (4.4-11.0)
[2023-01-11 12:15] LABS: Anion Gap 10 (5-15); BUN 24 mg/dL (7-18); BUN/Creat Ratio 20.2 RATIO (10-20); Calcium,Total 8.7 mg/dL (8.5-10.1); Chloride 103 mmol/L (98-107); Creatinine, Serum 1.19 mg/dL (0.70-1.30); EST Glomerular Filtration Rate 62 mL/min (>60); Est Glom Filt Rate - Afr Amer 74 mL/min (>60); Glucose 180 mg/dL (74-106); Potassium 3.7 mmol/L (3.5-5.1); Sodium Level 137 mmol/L (136-145)
[2023-01-11 12:39] LABS: Mucous, Urine 0 SEEN /hpf (<or=2+); Squamous Epithelial Cells - UA 0 SEEN /hpf (0-5)
[2023-01-11 12:48] LABS: Color, Urine Brown (Yellow); Glucose, Dipstick Normal (Normal); Ketone-Dipstick Negative (Negative); Leukocyte Esterase-Dipstick 500 /ul (Negative); Nitrite-Dipstick Negative (Negative); Occult Blood-Urine 250 /ul (Negative); Protein-Dipstick 100 mg/dl (Negative); Urine Bilirubin Dipstick Negative (Negative); Urine Clarity Cloudy (Clear); Urine Urobilinogen Normal (Normal)
[2023-01-11 12:56] LABS: Bacteria 2+ /hpf (None Seen); Red Blood Cells-Urine 25-50 SEEN /hpf (0-5); White Blood Cells >100 SEEN /hpf (0-5)
--- NOTE | 2023-01-11 13:54 | EKG12_ITS ---
Test Reason : Blood Pressure : / mmHG Vent. Rate : 064 BPM Atrial Rate : 064 BPM P-R Int : 144 ms QRS Dur : 140 ms QT Int : 498 ms P-R-T Axes : 064 -50 028 degrees QTc Int : 513 ms Sinus rhythm with occasional Premature ventricular complexes Left axis deviation Right bundle branch block Abnormal ECG Confirmed by SOLO LAMBERT, NATHALIE ([id number]), editor greeting card MIRZA AMAYA ([id number]) on 01/14/2023 2:13:58 PM Referred By: Confirmed By:NATHALIE BANDA MD
--- NOTE | 2023-01-11 14:50 | PCM.HP.STD ---
[facility] - General General Date of Admission: 01/11/23 HPI Narrative LOLA CROWDER, is a 87 M who presents to the hospital because of a clogged Archuleta. He does have a history of prostate cancer and he had a transurethral resection in 2019. He went to his urologist office yesterday and had a Archuleta placed and by the time they got home it appeared that the Archuleta was likely clogged because he was urinating around it. When he presented to the ER he was pale and blood work demonstrated an hemoglobin of 7.4. Rectal exam was negative for any blood however stool sample is pending. UA is also consistent with a UTI, he states that based on the smell his urologist started him on an antibiotic but unfortunately did not obtain a urine culture. [facility] Medical History Cancer Cardiology follow-up encounter Constipation CPAP (continuous positive airway pressure) dependence Encounter for screening for COVID-19 Former smoker Gastric reflux High cholesterol History of atrial fibrillation History of echocardiogram History of heart attack History of stress test History of ulceration Hypertension Prostate disease Shortness of breath on exertion Sleep apnea Weakness Wears glasses Home Medications ascorbic acid (vitamin C) 1,000 mg tablet (Vitamin C) 1,000 mg PO DAILY SUPPLEMENT 11/05/17 [History Last Taken 11/11/17] atenolol 50 mg tablet 50 mg PO QHS blood pressure 11/05/17 [History Last Taken 11/17/17 22:00 1] cholecalciferol (vitamin D3) 50 mcg (2,000 unit) capsule (Vitamin D3) 2,000 unit PO DAILY SUPPLEMENT 11/05/17 [History Last Taken 11/11/17] furosemide 40 mg tablet (Lasix) 20 mg PO DAILY DIURETIC/water pill 11/05/17 [History Last Taken 11/17/17 08:00] isosorbide mononitrate 60 mg tablet,extended release 24 hr 60 mg PO BID HEART 11/05/17 [History Last Taken 10/11/21 05:00] losartan 100 mg tablet 100 mg PO QHS blood pressure 11/05/17 [History Last Taken 11/17/17 22:00 1] omeprazole 20 mg capsule,delayed release 20 mg PO DAILY REFLUX 11/05/17 [History Last Taken 10/11/21 05:00] atorvastatin 40 mg tablet 40 mg PO QHS 04/25/20 [History Last Taken Unknown] clopidogrel 75 mg tablet 75 mg PO DAILY 04/25/20 [History Last Taken 10/06/21] coenzyme Q10 100 mg capsule 200 mg PO DAILY 04/25/20 [History Last Taken Unknown] Lactobacillus acidophilus (Acidophilus capsule) 100 mg PO DAILY 10/04/21 [History Last Taken Unknown] aspirin 81 mg capsule 81 mg PO DAILY 10/04/21 [History Last Taken 10/06/21] polyethylene glycol 3350 17 gram oral powder packet 17 gm PO PRN PRN Constipation 10/04/21 [History Last Taken Unknown] ciprofloxacin HCl 500 mg tablet (Cipro) 500 mg PO BID #14 tabs 10/11/21 [Rx Last Taken Unknown] polyethylene glycol 3350 17 gram/dose oral powder (Miralax) 17 g PO TID #119 grams 10/14/21 [Rx Last Taken Unknown] ciprofloxacin HCl 500 mg tablet 500 mg PO BID #14 TABLETS 11/30/21 [Rx Last Taken Unknown] sulfamethoxazole 800 mg-trimethoprim 160 mg tablet 1 tab PO BID #14 TABLETS 12/14/21 [Rx Last Taken Unknown] Allergy/AdvReac Type Severity Reaction Status Date / Time No Known Allergies Allergy Verified 01/11/23 10:36 Family History (Updated 01/11/23 @ 15:[address] Yonny Lozano MD) Other CVA (cerebral vascular accident) Cancer Heart disease Surgical History History of cardiac catheterization History of coronary artery stent placement History of heart surgery Hx laparoscopic cholecystectomy Hx of CABG Hx of surgical procedure Hx of tonsillectomy Hx of total knee replacement Hx of transurethral resection of prostate Social History household members: other Smoking Status: Former smoker substance use type: does not use ROS Constitutional Constitutional: Reports fatigue; Denies chills, fever(s) or malaise Eyes Eyes: Denies blurry vision ENT HEENT: Denies headache(s) or nasal discharge Cardiovascular Cardiovascular: Denies chest pain, dyspnea on exertion or syncope Respiratory/Chest Respiratory/Chest: Denies cough, shortness of breath at rest or shortness of breath with exertion Gastrointestinal Gastrointestinal: Denies constipation, diarrhea, nausea or vomiting Genitourinary Genitourinary: Reports hematuria; Denies dysuria Neurologic Neurologic: Denies focal weakness, numbness or tremor(s) Psychiatric Psychiatric: Denies anxiety or depression Vital Signs Vital Signs Vital Signs: 01/11/23 10:36 01/11/23 14:18 01/11/23 14:19 Temperature 98 F 98.4 F 98.4 F Temperature Source Temporal Temporal Temporal Pulse Rate 87 63 64 Respiratory Rate 14 14 16 Blood Pressure 111/63 122/55 H 122/55 H Blood Pressure Mean 79 77 77 Blood Pressure Source Monitor Blood Pressure Position Semi-Fowlers Blood Pressure Location Left Arm Pulse Ox 97 98 98 Oxygen Delivery Method Room Air Room Air Room Air 01/11/23 14:34 Temperature 98.3 F Temperature Source Temporal Pulse Rate 61 Respiratory Rate 16 Blood Pressure 130/48 H Blood Pressure Mean 75 Blood Pressure Source Monitor Blood Pressure Position Semi-Fowlers Blood Pressure Location Right Arm Pulse Ox 97 Oxygen Delivery Method Room Air Weight Weight: 207 lb 0.225 oz Body Mass Index (BMI) 30.5 Physical Exam Narrative General: Alert, Oriented x3, Cooperative, No apparent distress HEENT: Atraumatic, PERRLA, EOMI, Normocephalic Oral: Moist Mucosa Neck: Supple, No JVD Lungs: Diminished, Normal air movement, No rhonchi, No wheeze, No rales Cardiovascular: Regular rate, Regular Rhythm, Normal S1, Normal S2, No murmurs Abdomen: Soft, Non Tender, Non-Distended, No Hepato-splenomegaly Extremities: No edema, Capillary Refill Less than 3 Seconds Skin: No rashes, No breakdown, pale Musculoskeletal: No Tenderness to Palpation of Joints or Extremities Neurological: Cranial nerves II-XII grossly intact, Motor Exam 5/5 strength throughout, Sensory exam intact to light touch and pain Psych/Mental Status: Normal Affect, Appropriate Results Lab / Micro Data Result Diagrams: 01/11/23 11:50 01/11/23 11:50 Labs: Laboratory Results - last 24 hr 01/11/23 11:50: WBC 6.7, RBC 2.82 L, Hgb 7.4 L, Hct 23.4 L, MCV 83.0, MCH 26.2 L, MCHC 31.6 L, RDW Std Deviation 46.9 H, RDW Coeff of Randa 15.6 H, Plt Count 316, MPV 9.4, Immature Gran % (Auto) 0.400, Neut % (Auto) 63.6, Lymph % (Auto) 21.3, [place] % (Auto) 11.2 H, Eos % (Auto) 3.1, Baso % (Auto) 0.4, Absolute Neuts (auto) 4.3, Absolute Lymphs (auto) 1.43, Nucleated RBC % 0 01/11/23 11:50: Sodium 137, Potassium 3.7, Chloride 103, Carbon Dioxide 24.0, Anion Gap 10, BUN 24 H, Creatinine 1.19, Est GFR (MDRD) Af Amer 74, Est GFR (MDRD) Non-Af 62, BUN/Creatinine Ratio 20.2 H, Glucose 180 H, Calcium 8.7 01/11/23 11:50: Blood Type O POSITIVE, Antibody Screen NEGATIVE 01/11/23 11:50: Crossmatch See Detail 01/11/23 12:30: Urine Color Brown, Urine Clarity Cloudy, Urine pH 5.0, Ur Specific [place] 1.010, Urine Protein 100 H, Urine Glucose (UA) Normal, Urine Ketones Negative, Urine Occult Blood 250 H, Urine Nitrite Negative, Urine Bilirubin Negative, Urine Urobilinogen Normal, Ur Leukocyte Esterase 500 H, Urine RBC 25-50 SEEN, Urine WBC >100 SEEN, Ur Squamous Epith Cells 0 SEEN, Urine Bacteria 2+, Urine Mucus 0 SEEN Micro: Microbiology 01/11/23 13:45 Stool Stool Occult Blood (FREDERIC) - Final Rhythm Strip Rhythm Strip: Sinus Rhythm Rate: 64 Ectopy: PVC(s) Assessment & Plan Assessment/Plan (1) Urinary tract infection associated with catheterization of urinary tract: (2) Acute blood loss anemia: PLAN: Plan 1. Acute blood loss anemia secondary to hematuria due to prostate cancer versus UTI ? We will obtain a urine culture, previous urine cultures were positive for Enterococcus so we will start him on Zosyn ? Will transfuse with 1 unit since he does have a cardiac history, given the fact that this hemoglobin is only 7.4 ?Fecal occult is negative ? Can consult urology if we continue to have difficulties with his Archuleta 2. HTN/HLD/CAD status post CABG and stents ? His last stent was placed in 2014 so we will hold his antiplatelets in the setting of his hematuria ? Continue with Lipitor, atenolol, losartan, isosorbide mononitrate, and Lasix 3. GERD ? Stable ? Continue with PPI DVT: SCDs 75 minutes was spent in direct patient care as well as chart review and collaboration with other healthcare providers Charges/Coding Visit Charges Inpatient E&M: 13928 Init Hosp L3
[2023-01-11] MEDS: Atorvastatin Calcium 40 MG Tablet PO (22:04)
[2023-01-11] MEDS: Isosorbide Mononitrate 60 MG Tablet PO (22:04)
[2023-01-11] MEDS: Atenolol 50 MG Tablet PO (22:04)
[2023-01-11] MEDS: Losartan Potassium 100 MG Tablet PO (22:17)
[2023-01-12] MEDS: MELATONIN 3 MG TABLET PO ×2 (00:12→21:08)
[2023-01-12 06:00] VITALS: BP 110/50; PULSE 58; RESP 18; TEMP 36.8; O2SAT 96
[2023-01-12 06:21] LABS: Absolute Lymphocyte Count 2.42 X10^3/uL (0.83-4.51); Basophil# 0.04 X10^3/uL; Basophil% 0.6 % (0-1); Eosinophil# 0.41 X10^3/uL; Eosinophils% 6.2 % (0-5); Hematocrit 24.3 % (40-54); Hemoglobin 7.6 g/dL (13.0-16.5); Lymphocyte # 2.42 X10^3/ul (0.83-4.51); Lymphocyte % 36.3 % (19-41); Mean Corp Hgb Conc 31.3 g/dL (32-36); Mean Corpuscular Hgb 26.5 pg (27.0-32.0); Mean Corpuscular Volume 84.7 fL (80-94); Mean Platelet Vol. 9.6 fl (6.2-12.0); Monocyte# 0.77 X10^3/uL; Monocyte% 11.6 % (0-10); NRBC Flagged by Analyzer 0 % (0-5); Neutrophil # 2.97 X10^3/uL (2.7-7.7); Neutrophil % 44.5 % (47-70); Platelet Count 327 K/mm3 (150-450); RBC Distribution Width CV 15.9 % (11.6-14.6); RBC Distribution Width SD 48.8 fl (35.1-43.9); Red Blood Count 2.87 M/mm3 (4.6-6.2); White Blood Count 6.7 K/mm3 (4.4-11.0)
[2023-01-12 06:59] LABS: Anion Gap 7 (5-15); BUN 19 mg/dL (7-18); BUN/Creat Ratio 19.8 RATIO (10-20); Calcium,Total 8.1 mg/dL (8.5-10.1); Chloride 105 mmol/L (98-107); Creatinine, Serum 0.96 mg/dL (0.70-1.30); EST Glomerular Filtration Rate 79 mL/min (>60); Est Glom Filt Rate - Afr Amer 96 mL/min (>60); Estimated Creatinine Clearance 55.23 ml/min; Glucose 127 mg/dL (74-106); Potassium 3.7 mmol/L (3.5-5.1); Sodium Level 136 mmol/L (136-145)
[2023-01-12] MEDS: Pantoprazole Sodium 20 MG Tablet PO (08:46)
[2023-01-12] MEDS: Furosemide 20 MG Tablet PO (08:46)
[2023-01-12] MEDS: Isosorbide Mononitrate 60 MG Tablet PO ×2 (08:46→21:07)
[2023-01-12 09:30] VITALS: BP 101/55; PULSE 64; RESP 18; TEMP 36.2; O2SAT 97
--- NOTE | 2023-01-12 10:25 | CASEMGMT ---
ASAD NICHOLSON DC Planning Assessment: Face to Face with patient for initial transition planning/care coordination assessment.?ASAD NICHOLSON introduced self and role at [facility], pt voices understanding and is agreeable to participating in assessment.? Care providers, pharmacy,?and demographics verified. ? Admitting dx: hematuria, ABLA, UTI PCP: Om[facility] Specialists: Anita Louie Pharmacy: [facility] Insurance: MCR A/B, MMO supplement Prescription Benefit:? yes Living Will/HPOA: yes, HPOA Sofia Zazueta (daughter), pt states papers are at his bankruptcy attorney's office but he need to review these and update. LNOK: Pt has 6 children Living Arrangements: Pt lives with his son Chuck in a single story home with 2-3 steps to enter. Pt denies any difficulty with steps. Pt states he is independent with ADLs but states he has noted a general gradual increase in difficulty completing. Pt states his son recently retired and is available to assist him as needed. Transportation: pt drives short distances or has family that can assist DME: pt uses a cane but also has access to a walker and w/c. Pt states he has a shower chair he recently began using, grab bars, hand held shower, and a lift chair. Pt uses CPAP and he gets his supplies from [employer]. SNF/HHC: pt denies any previous providers. ? Plan: Pt plans to return home with the assistance of his son and family. Pt states he has had a nicholson catheter in the past and is familiar with its care. Pt denies any additional DC needs at this time. Will continue to monitor and assist with DC needs as identified. Naif Guerrier RN CM
--- NOTE | 2023-01-12 10:30 | PCM.PN.HOSP ---
Reason for Visit Reason for Visit: Diagnoses Acute posthemorrhagic anemia (01/11/23) Urinary tract infection, site not specified (01/11/23) Infection and inflammatory reaction due to indwelling urethral catheter, initial encounter (01/11/23) Follow-up for hematuria with acute posthemorrhagic anemia. Objective Data Objective Data Vital Signs: Vital Signs Temp Pulse Resp BP Pulse Ox O2 Del Method 98.2 F 58 L 18 110/50 L 96 Room Air 01/12/23 06:00 01/12/23 06:00 01/12/23 06:00 01/12/23 06:00 01/12/23 06:00 01/12/23 08:38 Oxygen Delivery Method Room Air Weight: 204 lb Body Mass Index (BMI) 30.1 Intake & Output: Intake and Output for Last 24 Hours 01/10/23 01/11/23 01/12/23 23:59 23:59 23:59 Intake Total 450 / 450 100 / 100 Output Total 1050 / 1050 Balance 450 / -50 -950 / -950 Lab / Micro Data Result Diagrams: 01/12/23 05:43 01/12/23 05:43 Labs: Laboratory Results - last 24 hr 01/11/23 11:50: WBC 6.7, RBC 2.82 L, Hgb 7.4 L, Hct 23.4 L, MCV 83.0, MCH 26.2 L, MCHC 31.6 L, RDW Std Deviation 46.9 H, RDW Coeff of Randa 15.6 H, Plt Count 316, MPV 9.4, Immature Gran % (Auto) 0.400, Neut % (Auto) 63.6, Lymph % (Auto) 21.3, [place] % (Auto) 11.2 H, Eos % (Auto) 3.1, Baso % (Auto) 0.4, Absolute Neuts (auto) 4.3, Absolute Lymphs (auto) 1.43, Nucleated RBC % 0 01/11/23 11:50: Sodium 137, Potassium 3.7, Chloride 103, Carbon Dioxide 24.0, Anion Gap 10, BUN 24 H, Creatinine 1.19, Est GFR (MDRD) Af Amer 74, Est GFR (MDRD) Non-Af 62, BUN/Creatinine Ratio 20.2 H, Glucose 180 H, Calcium 8.7 01/11/23 11:50: Blood Type O POSITIVE, Antibody Screen NEGATIVE 01/11/23 11:50: Crossmatch See Detail 01/11/23 12:30: Urine Color Brown, Urine Clarity Cloudy, Urine pH 5.0, Ur Specific Fidelity 1.010, Urine Protein 100 H, Urine Glucose (UA) Normal, Urine Ketones Negative, Urine Occult Blood 250 H, Urine Nitrite Negative, Urine Bilirubin Negative, Urine Urobilinogen Normal, Ur Leukocyte Esterase 500 H, Urine RBC 25-50 SEEN, Urine WBC >100 SEEN, Ur Squamous Epith Cells 0 SEEN, Urine Bacteria 2+, Urine Mucus 0 SEEN 01/12/23 05:43: WBC 6.7, RBC 2.87 L, Hgb 7.6 L, Hct 24.3 L, MCV 84.7, MCH 26.5 L, MCHC 31.3 L, RDW Std Deviation 48.8 H, RDW Coeff of Randa 15.9 H, Plt Count 327, MPV 9.6, Immature Gran % (Auto) 0.800, Neut % (Auto) 44.5 L, Lymph % (Auto) 36.3, [place] % (Auto) 11.6 H, Eos % (Auto) 6.2 H, Baso % (Auto) 0.6, Absolute Neuts (auto) 3.0, Absolute Lymphs (auto) 2.42, Nucleated RBC % 0 01/12/23 05:43: Sodium 136, Potassium 3.7, Chloride 105, Carbon Dioxide 24.0, Anion Gap 7, BUN 19 H, Creatinine 0.96, Estim Creat Clear Calc 55.23, Est GFR (MDRD) Af Amer 96, Est GFR (MDRD) Non-Af 79, BUN/Creatinine Ratio 19.8, Glucose 127 H, Calcium 8.1 L Micro: Microbiology 01/11/23 13:45 Stool Stool Occult Blood (FREDERIC) - Final Rhythm Strip Rhythm Strip: Sinus Rhythm Rate: 64 Ectopy: PVC(s) Physical Exam Narrative Seen and examined. Patient stated he saw Dr. Howard in the office on 01/10/2023 and Archuleta catheter was inserted for retention. After that he started having materia yesterday and therefore admitted. Patient is also severely anemic. Physical exam: General: Alert, Oriented x3, Cooperative HEENT: Atraumatic, PERRLA, EOMI, Normocephalic Oral: Oral mucosa moist. No Gingival or Mucosal Lesions/ Ulcerations Neck: Supple, No JVD, Negative Carotid Bruits Lungs: Air entry diminished in bilateral lung bases. No crepitation/rhonchi Cardiovascular: Regular rate, Regular Rhythm, Normal S1, Normal S2, No murmurs Abdomen: Bowel Sounds Present, Soft, Non Tender, Non-Distended : Archuleta catheter. Dark color urine, hematuria has cleared. No penile or scrotal, suprapubic perineal tenderness. No renal angle tenderness. Extremities: No edema, Capillary Refill Less than 3 Seconds Skin: No rashes, No breakdown Musculoskeletal: No Tenderness to Palpation of Joints or Extremities. ROM restricted over hip and knee joints. Bilateral knee arthritis, multiple surgical scar in left knee. Neurological: Cranial nerves II-XII grossly intact, DTR 2+/4 and Symmetrical, Neuro grossly intact Psych/Mental Status: Flat affect, forgetful, amnesia. Possible dementia Assessment & Plan Assessment/Plan (1) Urinary tract infection associated with catheterization of urinary tract: (2) Acute blood loss anemia: PLAN: Plan This is a 37-year-old gentleman with history of prostate cancer came to ED with Archuleta catheter dysfunction and hematuria. Dr. Howard replaced his catheter as he was leaking urine around it.Patient also generalized weakness tiredness lightheadedness especially on standing up. 1. Acute blood loss anemia secondary to hematuria due to prostate cancer: Patient being admitted on MedSurg floor. UA shows WBC more than 100 cells, RBC 25-50 LE 500 but negative nitrite. Urine culture shows no growth which was collected before the antibiotic. Fecal occult blood negative. Previous urine cultures off November 13, 2021 were positive for Enterococcus therefore started on Zosyn. Most recent urine culture from 12/14 was MRSE but in nonpathologic range [id number] colonies. UTI ruled out. Antibiotic is discontinued. Patient had 1 unit of PRBC transfusion and hemoglobin shows slight improvement 7.6. Iron infusion ordered. Dr. Howard is informed and consulted.. 2. CAD status post CABG and stents, hypertension and dyslipidemia: Patient had bypass with graft taken from lower extremity. Lower extremities have venous changes with grayish pigmentation and mild swelling but no seepage. ? His last stent was placed in 2014 so his antiplatelets in the setting of his hematuria and severe anemia. No acute chest pain tightness or heaviness or symptoms of angina or ACS. ? Continue with Lipitor, atenolol, losartan, isosorbide mononitrate, and Lasix 3. GERD ? Stable ? Continue with PPI DVT: SCDs Microbiology Past 72 Hours 01/11/23 12:30 Urine, Catheterized Urine Culture - Preliminary Culture exhibits no growth. 01/11/23 13:45 Stool Stool Occult Blood (FREDERIC) - Final Laboratory Results 01/11/23 11:50: Crossmatch See Detail 01/12/23 05:43: WBC 6.7, RBC 2.87 L, Hgb 7.6 L, Hct 24.3 L, MCV 84.7, MCH 26.5 L, MCHC 31.3 L, RDW Std Deviation 48.8 H, RDW Coeff of Randa 15.9 H, Plt Count 327, MPV 9.6, Immature Gran % (Auto) 0.800, Neut % (Auto) 44.5 L, Lymph % (Auto) 36.3, [place] % (Auto) 11.6 H, Eos % (Auto) 6.2 H, Baso % (Auto) 0.6, Absolute Neuts (auto) 3.0, Absolute Lymphs (auto) 2.42, Nucleated RBC % 0 01/12/23 05:43: Sodium 136, Potassium 3.7, Chloride 105, Carbon Dioxide 24.0, Anion Gap 7, BUN 19 H, Creatinine 0.96, Estim Creat Clear Calc 55.23, Est GFR (MDRD) Af Amer 96, Est GFR (MDRD) Non-Af 79, BUN/Creatinine Ratio 19.8, Glucose 127 H, Calcium 8.1 L Charges/Coding Visit Charges Inpatient E&M: 40975 Subs Hosp L2
[2023-01-12] MEDS: Ensure Plus High Protein 120 ML LIQUID PO ×2 (13:54→21:08)
[2023-01-12 15:00] VITALS: BP 97/55; PULSE 62; RESP 18; TEMP 36.6; O2SAT 99
[2023-01-12] MEDS: Polyethylene Glycol 3350 17 GM PACKET PO (16:58)
[2023-01-12 20:35] LABS: Hematocrit 26.2 % (40-54); Hemoglobin 7.9 g/dL (13.0-16.5)
[2023-01-12 21:00] VITALS: BP 134/55; PULSE 63; RESP 18; TEMP 36.5; O2SAT 96
[2023-01-12] MEDS: ENZALUTAMIDE 40 MG TABLET 80 MG PO (21:07)
[2023-01-12] MEDS: Atenolol 50 MG Tablet PO (21:07)
[2023-01-12] MEDS: Losartan Potassium 50 MG Tablet PO (21:08)
[2023-01-12] MEDS: Senna Tablet 2 TABLET PO (21:08)
[2023-01-12] MEDS: Atorvastatin Calcium 40 MG Tablet PO (21:08)
[2023-01-13 05:15] VITALS: BP 138/57; PULSE 55; RESP 16; TEMP 36.2; O2SAT 95
[2023-01-13 06:07] LABS: Absolute Lymphocyte Count 2.56 X10^3/uL (0.83-4.51); Basophil# 0.07 X10^3/uL; Basophil% 0.9 % (0-1); Eosinophil# 0.59 X10^3/uL; Eosinophils% 7.2 % (0-5); Hematocrit 25.1 % (40-54); Hemoglobin 7.8 g/dL (13.0-16.5); Lymphocyte # 2.56 X10^3/ul (0.83-4.51); Lymphocyte % 31.2 % (19-41); Mean Corp Hgb Conc 31.1 g/dL (32-36); Mean Corpuscular Hgb 27.1 pg (27.0-32.0); Mean Corpuscular Volume 87.2 fL (80-94); Mean Platelet Vol. 9.9 fl (6.2-12.0); Monocyte# 0.88 X10^3/uL; Monocyte% 10.7 % (0-10); NRBC Flagged by Analyzer 0 % (0-5); Neutrophil % 48.8 % (47-70); Platelet Count 372 K/mm3 (150-450); RBC Distribution Width CV 16.3 % (11.6-14.6); Red Blood Count 2.88 M/mm3 (4.6-6.2); White Blood Count 8.2 K/mm3 (4.4-11.0)
[2023-01-13 06:42] LABS: Anion Gap 6 (5-15); BUN 17 mg/dL (7-18); BUN/Creat Ratio 17.6 RATIO (10-20); Calcium,Total 8.3 mg/dL (8.5-10.1); Chloride 108 mmol/L (98-107); Creatinine, Serum 0.96 mg/dL (0.70-1.30); EST Glomerular Filtration Rate 78 mL/min (>60); Est Glom Filt Rate - Afr Amer 95 mL/min (>60); Estimated Creatinine Clearance 55.23 ml/min; Glucose 110 mg/dL (74-106); Potassium 3.7 mmol/L (3.5-5.1); Sodium Level 138 mmol/L (136-145)
[2023-01-13] MEDS: Ensure Plus High Protein 120 ML LIQUID PO ×3 (08:29→21:49)
[2023-01-13] MEDS: Ascorbic Acid 500 MG Tablet 1000 MG PO (08:29)
[2023-01-13] MEDS: Pantoprazole Sodium 40 MG Tablet PO (08:29)
[2023-01-13] MEDS: Isosorbide Mononitrate 60 MG Tablet PO ×2 (08:29→21:52)
[2023-01-13] MEDS: Furosemide 20 MG Tablet PO (08:29)
[2023-01-13] MEDS: Senna Tablet 2 TABLET PO (08:29)
[2023-01-13] MEDS: Polyethylene Glycol 3350 17 GM PACKET PO (08:29)
[2023-01-13 10:18] VITALS: BP 131/56; PULSE 57; RESP 18; TEMP 36.5; O2SAT 98
--- NOTE | 2023-01-13 10:44 | CON.PCM.UR_ITS ---
Assessment & Plan Assessment/Plan (1) Acute blood loss anemia: PLAN: Patient anemias was addressed with the transfusion also getting iron infusion. Hopefully with improvement in his blood count his anemia will and improve his symptomatic fatigue and tiredness (2) Urinary tract infection associated with catheterization of urinary tract: PLAN: Patient has a chronic Archuleta catheter but with his fatigue and tiredness and infection I would recommend we treat the UTI just to rule out as a source of the possible fatigue and tiredness (3) Prostate cancer: PLAN: He does have prostate cancer with progressive disease Xtandi was added to help control the cancer but it does cause severe fatigue so for now I think given his weakness and fatigue and tiredness and poor progression I would rec ommend we hold the Xtandi I spoke to the son regarding this. 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 He had progressive cancer and therefore was started on Xtandi but at this point has developed such severe fatigue and weakness that I can recommend he stop his Xtandi. Currently in the hospital is not getting the medication but I spoke to his son on the phone and I recommended when he gets either transfer to a skilled facility or if he goes home to hold the Xtandi for now he does have an appointment to see me in about a month for another catheter change. Hopefully with stopping Xtandi and addressing his anemia his weakness will improve. And I will see him in a month for catheter change in the office. [facility] Medical History Cancer Cardiology follow-up encounter Constipation CPAP (continuous positive airway pressure) dependence Encounter for screening for COVID-19 Former smoker Gastric reflux High cholesterol History of atrial fibrillation History of echocardiogram History of heart attack History of stress test History of ulceration Hypertension Prostate disease Shortness of breath on exertion Sleep apnea Weakness Wears glasses Home Medications ascorbic acid (vitamin C) 1,000 mg tablet (Vitamin C) 1,000 mg PO DAILY SUPPLEMENT 11/05/17 [History Last Taken 01/11/23] atenolol 50 mg tablet 50 mg PO QHS blood pressure 11/05/17 [History Last Taken 01/10/23] cholecalciferol (vitamin D3) 50 mcg (2,000 unit) capsule (Vitamin D3) 2,000 unit PO DAILY SUPPLEMENT 11/05/17 [History Last Taken 01/11/23] furosemide 40 mg tablet (Lasix) 20 mg PO DAILY DIURETIC/water pill 11/05/17 [History Last Taken 01/11/23] isosorbide mononitrate 60 mg tablet,extended release 24 hr 60 mg PO BID HEART 11/05/17 [History Last Taken 01/10/23] losartan 100 mg tablet 100 mg PO QHS blood pressure 11/05/17 [History Last Taken 01/10/23] omeprazole 20 mg capsule,delayed release 20 mg PO DAILY REFLUX 11/05/17 [History Last Taken 01/11/23] atorvastatin 40 mg tablet 40 mg PO QHS cholesterol 04/25/20 [History Last Taken 01/10/23] coenzyme Q10 100 mg capsule 200 mg PO DAILY supplement 04/25/20 [History Last Taken 01/11/23] Lactobacillus acidophilus (Acidophilus capsule) 100 mg PO DAILY supplement 10/04/21 [History Last Taken 01/11/23] aspirin 81 mg capsule 81 mg PO DAILY heart health 10/04/21 [History Last Taken 01/11/23] polyethylene glycol 3350 17 gram oral powder packet 17 gm PO PRN PRN Constipation 10/04/21 [History Last Taken Unknown] ciprofloxacin HCl 500 mg tablet 500 mg PO BID infection 01/11/23 [History Last Taken 01/11/23] enzalutamide 40 mg tablet (Xtandi) 40 mg PO DAILY cancer 01/11/23 [History Last Taken 01/10/23] Allergy/AdvReac Type Severity Reaction Status Date / Time No Known Allergies Allergy Verified 01/11/23 10:36 Family History Other CVA (cerebral vascular accident) Cancer Heart disease Surgical History History of cardiac catheterization History of coronary artery stent placement History of heart surgery Hx laparoscopic cholecystectomy Hx of CABG Hx of surgical procedure Hx of tonsillectomy Hx of total knee replacement Hx of transurethral resection of prostate Social History household members: other Smoking Status: Former smoker substance use type: does not use ROS ROS Narrative Severe fatigue and weakness Constitutional Constitutional: Denies chills, fever(s) or malaise Eyes Eyes: Denies blurry vision or change in vision ENT HEENT: Reports none Cardiovascular Cardiovascular: Denies chest pain or palpitations Respiratory/Chest Respiratory/Chest: Denies cough or shortness of breath with exertion Gastrointestinal Gastrointestinal: Denies abdominal pain, constipation or diarrhea Musculoskeletal Musculoskeletal: Denies back pain, joint stiffness or joint swelling Integumentary Integumentary: Denies dry skin, jaundice, lesions or rash Neurologic Neurologic: Denies confusion, syncope or weakness Psychiatric Psychiatric: Reports none; Denies anxiety or depression Endocrine Endocrinology: Denies excessive sweating, fatigue or flushing Hematologic/Lymphatic Hematologic/Lymphatic: Denies anemia, easy bleeding or easy bruising Physical Exam Const alert, oriented x3 and no apparent distress HEENT EAC's normal Head and Scalp: normocephalic and atraumatic Eyes PERRL Neck no lymphadenopathy General: trachea midline Lymph Lymphatic: no lymphadenopathy noted Resp normal respiratory effort Cardio regular rate and regular rhythm GI non-tender and non-distended Back/Spine no CVA tenderness Skin no rashes or lesions noted Neuro Speech: speech normal Psych Attitude: calm Mood & Affect: depressed Medical Records Data Attestation: I reviewed the patient's medical records Medical Nutrition Assessment Dietitian: Malnutrition Criteria Met Start: 01/12/23 12:44 Freq: Status: Active Protocol: Document 01/12/23 12:44 RMA (Rec: 01/12/23 12:44 RMA [id number]) Nutrition Malnutrition Evidence of Malnutrition Exists Yes Malnutrition (severe): Chronic Evidenced By Suboptimal Energy Intake ( Severe),Weight Loss (Severe) Clinical Problem Chronic Disease or Condition Related Malnutrition Etiology Severe protein-calorie malnutrition in the context of chronic disease and debility related to inadequate oral intake Signs/Symptoms as evidenced by PO meeting less than 50% estimated nutrition needs x past 3 months, PO meeting less than 75% estimated nutrition needs x past 6-12 months and weight loss ~20% x past 12 months Status Active Problem Recommendation Dietitian Recommendations/Changes Will liberalize diet to regular/no added salt given signs/symptoms of malnutrition ; fluid restriction as needed per physician. Will add 120ml chocolate ensure plus high protein 4 times per day w/ medpass. Adjust ONS as needed to optimize oral intake and prevent further weight loss. Lab / Micro Data Result Diagrams: 01/13/23 05:10 01/13/23 05:10 Labs: Laboratory Results - last 24 hr 01/12/23 20:29: Hgb 7.9 L, Hct 26.2 L 01/13/23 05:10: WBC 8.2, RBC 2.88 L, Hgb 7.8 L, Hct 25.1 L, MCV 87.2, MCH 27.1, MCHC 31.1 L, RDW Std Deviation 51.0 H, RDW Coeff of Randa 16.3 H, Plt Count 372, MPV 9.9, Immature Gran % (Auto) 1.200 H, Neut % (Auto) 48.8, Lymph % (Auto) 31.2, [place] % (Auto) 10.7 H, Eos % (Auto) 7.2 H, Baso % (Auto) 0.9, Absolute Neuts (auto) 4.0, Absolute Lymphs (auto) 2.56, Nucleated RBC % 0 01/13/23 05:10: Sodium 138, Potassium 3.7, Chloride 108 H, Carbon Dioxide 24.0, Anion Gap 6, BUN 17, Creatinine 0.96, Estim Creat Clear Calc 55.23, Est GFR (MDRD) Af Amer 95, Est GFR (MDRD) Non-Af 78, BUN/Creatinine Ratio 17.6, Glucose 110 H, Calcium 8.3 L Micro: Microbiology 01/11/23 12:30 Urine, Catheterized Urine Culture - Preliminary Culture exhibits no growth. Rhythm Strip Rhythm Strip: Sinus Rhythm Rate: 64 Ectopy: PVC(s)
--- NOTE | 2023-01-13 10:53 | CT_ITS ---
INDICATION: prostate cancer, hematuria EXAMINATION: CT ABDOMEN AND PELVIS WITH CONTRAST - CT Abdomen And Pelvis W/ Contrast Injection TECHNIQUE: Helically acquired images were obtained of the abdomen and pelvis following IV contrast. A radiation dose optimization technique was used for this scan. IV Contrast dosage and agent: 100 cc of Isovue-370 Oral contrast: None. COMPARISON: May 19, 2020 FINDINGS: LOWER CHEST: Lung bases are clear. No cardiomegaly or pericardial effusion. LIVER: There are two new ill-defined low-attenuation foci within the right hepatic lobe both measuring up to a centimeter. GALLBLADDER AND BILIARY TREE: There are surgical clips within the gallbladder fossa consistent with prior cholecystectomy. No intra- or extrahepatic biliary ductal dilation. PANCREAS: There is diffuse stable atrophy of the pancreas. SPLEEN: Normal size without focal cystic or solid mass. ADRENAL GLANDS: No nodules. KIDNEYS AND URETERS: Normal renal size and position. No hydronephrosis. There is a too small to characterize low-attenuation focus within the right kidney that likely reflects a cyst. PERITONEUM: No ascites or free air. No other fluid collection. BOWEL: There are diverticula arising from the colon. There is nonvisualization of the appendix. LYMPH NODES: There are new pathologically enlarged retroperitoneal lymph nodes. There are enlarged lymph nodes within the pelvis as well. VESSELS: Aorta is non-dilated. There are peripheral calcifications of the abdominal aorta. URINARY BLADDER: There is bladder wall thickening. There is a Archuleta catheter within the urinary bladder. ABDOMINAL WALL: No discrete abdominal or pelvic wall hernia. BONES: There is an expansile lytic lesion within the left iliac wing with overlying soft tissue involvement. There is an expansile lytic lesion within the right inferior pubic ramus as well. There are sclerotic foci within the visualized thoracic spine, sacrum and iliac wings. CT/Abdomen/Pelvis W IV Cont ONLY IMPRESSION: Bladder wall thickening concerning for cystitis. Left iliac weighing and right inferior pubic ramus lytic lesions consistent with bone metastases. Sclerotic foci within the thoracic spine, sacrum and iliac wings concerning for neoplastic process as well. Pathologically enlarged retroperitoneal and pelvic lymph nodes. New indeterminant low-attenuation foci within the liver, cannot exclude metastases. Atherosclerosis. Electronically Signed: Shavon Prescott MD at 13:07 EDT ,
--- NOTE | 2023-01-13 11:16 | PCM.PN.HOSP ---
Reason for Visit Reason for Visit: Diagnoses Malignant neoplasm of prostate (01/11/23) Acute posthemorrhagic anemia (01/11/23) Anemia, unspecified (01/11/23) Urinary tract infection, site not specified (01/11/23) Infection and inflammatory reaction due to indwelling urethral catheter, initial encounter (01/11/23) Follow-up for hematuria, anemia and fatigue Objective Data Objective Data Vital Signs: Vital Signs Temp Pulse Resp BP Pulse Ox O2 Del Method 97.7 F L 57 L 18 131/56 H 98 Room Air 01/13/23 10:18 01/13/23 10:18 01/13/23 10:18 01/13/23 10:18 01/13/23 10:18 01/13/23 10:18 Oxygen Delivery Method Room Air Weight: 204 lb 0.005 oz Body Mass Index (BMI) 30.1 Intake & Output: Intake and Output for Last 24 Hours 01/11/23 01/12/23 01/13/23 23:59 23:59 23:59 Intake Total 450 / 450 970 / 970 Output Total 2250 / 2800 900 / 900 Balance 450 / -50 -1280 / -1830 -900 / -900 Medical Nutrition Assessment Dietitian: Malnutrition Criteria Met Start: 01/12/23 12:44 Freq: Status: Active Protocol: Document 01/12/23 12:44 RMA (Rec: 01/12/23 12:44 RMA [id number]) Nutrition Malnutrition Evidence of Malnutrition Exists Yes Malnutrition (severe): Chronic Evidenced By Suboptimal Energy Intake ( Severe),Weight Loss (Severe) Clinical Problem Chronic Disease or Condition Related Malnutrition Etiology Severe protein-calorie malnutrition in the context of chronic disease and debility related to inadequate oral intake Signs/Symptoms as evidenced by PO meeting less than 50% estimated nutrition needs x past 3 months, PO meeting less than 75% estimated nutrition needs x past 6-12 months and weight loss ~20% x past 12 months Status Active Problem Recommendation Dietitian Recommendations/Changes Will liberalize diet to regular/no added salt given signs/symptoms of malnutrition ; fluid restriction as needed per physician. Will add 120ml chocolate ensure plus high protein 4 times per day w/ medpass. Adjust ONS as needed to optimize oral intake and prevent further weight loss. Lab / Micro Data Result Diagrams: 01/13/23 05:10 01/13/23 05:10 Labs: Laboratory Results - last 24 hr 01/12/23 20:29: Hgb 7.9 L, Hct 26.2 L 01/13/23 05:10: WBC 8.2, RBC 2.88 L, Hgb 7.8 L, Hct 25.1 L, MCV 87.2, MCH 27.1, MCHC 31.1 L, RDW Std Deviation 51.0 H, RDW Coeff of Randa 16.3 H, Plt Count 372, MPV 9.9, Immature Gran % (Auto) 1.200 H, Neut % (Auto) 48.8, Lymph % (Auto) 31.2, [place] % (Auto) 10.7 H, Eos % (Auto) 7.2 H, Baso % (Auto) 0.9, Absolute Neuts (auto) 4.0, Absolute Lymphs (auto) 2.56, Nucleated RBC % 0 01/13/23 05:10: Sodium 138, Potassium 3.7, Chloride 108 H, Carbon Dioxide 24.0, Anion Gap 6, BUN 17, Creatinine 0.96, Estim Creat Clear Calc 55.23, Est GFR (MDRD) Af Amer 95, Est GFR (MDRD) Non-Af 78, BUN/Creatinine Ratio 17.6, Glucose 110 H, Calcium 8.3 L Micro: Microbiology 01/11/23 12:30 Urine, Catheterized Urine Culture - Preliminary Culture exhibits no growth. 01/11/23 13:45 Stool Stool Occult Blood (FREDERIC) - Final Rhythm Strip Rhythm Strip: Sinus Rhythm Rate: 64 Ectopy: PVC(s) Physical Exam Narrative Seen and examined. Hematuria has cleared. Hemoglobin gradually improving. Patient still very fatigued and not able to ambulate himself. Discussed with Dr. Howard. I talked to patient's son yesterday. Physical exam: General: Alert, Oriented x3, Cooperative HEENT: Atraumatic, PERRLA, EOMI, Normocephalic Oral: Oral mucosa moist. No Gingival or Mucosal Lesions/ Ulcerations Neck: Supple, No JVD, Negative Carotid Bruits Lungs: Air entry diminished in bilateral lung bases. No crepitation/rhonchi Cardiovascular: Regular rate, Regular Rhythm, Normal S1, Normal S2, No murmurs Abdomen: Bowel Sounds Present, Soft, Non Tender, Non-Distended : Archuleta catheter. Dark color urine, hematuria has cleared. No penile or scrotal, suprapubic perineal tenderness. No renal angle tenderness. Extremities: No edema, Capillary Refill Less than 3 Seconds Skin: No rashes, No breakdown Musculoskeletal: No Tenderness to Palpation of Joints or Extremities. ROM restricted over hip and knee joints. Muscle strength 4/5 at bilateral hip and knee joints. Bilateral knee arthritis, multiple surgical scar in left knee. Neurological: Cranial nerves II-XII grossly intact, DTR 2+/4 and Symmetrical, Neuro grossly intact Psych/Mental Status: Flat affect, forgetful, amnesia. Possible dementia Assessment & Plan Assessment/Plan (1) Urinary tract infection associated with catheterization of urinary tract: (2) Acute blood loss anemia: PLAN: Plan This is a 37-year-old gentleman with history of prostate cancer came to ED with Archuleta catheter dysfunction and hematuria. Dr. Howard replaced his catheter as he was leaking urine around it.Patient also generalized weakness tiredness lightheadedness especially on standing up. 1. Acute blood loss anemia secondary to hematuria due to prostate cancer: [facility] UA shows WBC more than 100 cells, RBC 25-50 LE 500 but negative nitrite. Urine culture shows no growth which was collected before the antibiotic. Fecal occult blood negative. Previous urine cultures off November 13, 2021 were positive for Enterococcus therefore started on Zosyn. Most recent urine culture from 12/14 was MRSE but in nonpathologic range [id number] colonies. UTI ruled out. Antibiotic is discontinued. Patient had 1 unit of PRBC transfusion and hemoglobin shows slight improvement 7.6. Iron infusion ordered. 01/13: Hemoglobin is gradually improving 7.9. 1 more iron infusion ordered. Severe fatigue and generalized weakness probably multiple etiology, mostly from Xtandi, but chronic anemia, dementia/depression might also be contributing factor: This was discussed in detail with patient's son yesterday. PT and OT has been ordered. Plan for possible SNF. seen by urologist Dr. Howard and discussed with him. Xtandi is on hold and will be discontinued. I do not think giving antibiotic for the sake of fatigue and weakness is prudent in absence of focal symptoms and urine culture negative. Patient had 2 days of antibiotic Zosyn. 2. CAD status post CABG and stents, hypertension and dyslipidemia: Patient had bypass with graft taken from lower extremity. Lower extremities have venous changes with grayish pigmentation and mild swelling but no seepage. ? His last stent was placed in 2014 so his antiplatelets in the setting of his hematuria and severe anemia are on hold. Patient no acute chest pain tightness or heaviness or symptoms of angina or ACS. ? Continue with Lipitor, atenolol, losartan, isosorbide mononitrate, and Lasix 3. GERD ? Stable ? Continue with PPI DVT: SCDs Charges/Coding Visit Charges Inpatient E&M: 24905 Subs Hosp L2
[2023-01-13 14:46] VITALS: BP 116/56; PULSE 57; RESP 18; TEMP 36.3; O2SAT 95
[2023-01-13 21:45] VITALS: BP 129/54; PULSE 64; RESP 16; TEMP 36.6; O2SAT 97
[2023-01-13] MEDS: Losartan Potassium 50 MG Tablet PO (21:48)
[2023-01-13] MEDS: MELATONIN 3 MG TABLET PO (21:49)
[2023-01-13] MEDS: Atorvastatin Calcium 40 MG Tablet PO (21:53)
[2023-01-13] MEDS: Atenolol 50 MG Tablet PO (21:53)
[2023-01-14] VITALS (10 sets, daily range): BP systolic 117–164; BP diastolic 45–66; PULSE 57–63; RESP 16; TEMP 36.6–37.2; O2SAT 94–99
[2023-01-14 07:07] LABS: Absolute Lymphocyte Count 2.55 X10^3/uL (0.83-4.51); Absolute Neutrophil Count 3.9 X10^3/uL (2.0-7.7); Basophil# 0.06 X10^3/uL; Basophil% 0.7 % (0-1); Eosinophil# 0.51 X10^3/uL; Eosinophils% 6.4 % (0-5); Hematocrit 24.6 % (40-54); Hemoglobin 7.5 g/dL (13.0-16.5); Lymphocyte # 2.55 X10^3/ul (0.83-4.51); Lymphocyte % 31.8 % (19-41); Mean Corp Hgb Conc 30.5 g/dL (32-36); Mean Corpuscular Hgb 26.8 pg (27.0-32.0); Mean Corpuscular Volume 87.9 fL (80-94); Monocyte# 0.82 X10^3/uL; Monocyte% 10.2 % (0-10); NRBC Flagged by Analyzer 0 % (0-5); Neutrophil # 3.93 X10^3/uL (2.7-7.7); Platelet Count 363 K/mm3 (150-450); RBC Distribution Width CV 16.5 % (11.6-14.6); RBC Distribution Width SD 51.7 fl (35.1-43.9)
[2023-01-14 07:31] LABS: Anion Gap 5 (5-15); BUN 15 mg/dL (7-18); BUN/Creat Ratio 15.7 RATIO (10-20); Calcium,Total 8.4 mg/dL (8.5-10.1); Chloride 107 mmol/L (98-107); Creatinine, Serum 0.96 mg/dL (0.70-1.30); EST Glomerular Filtration Rate 79 mL/min (>60); Est Glom Filt Rate - Afr Amer 96 mL/min (>60); Estimated Creatinine Clearance 55.23 ml/min; Glucose 106 mg/dL (74-106); Sodium Level 135 mmol/L (136-145)
--- NOTE | 2023-01-14 07:34 | PN.HOSP_ITS ---
Reason for Visit Reason for Visit: Diagnoses Malignant neoplasm of prostate (01/11/23) Acute posthemorrhagic anemia (01/11/23) Anemia, unspecified (01/11/23) Urinary tract infection, site not specified (01/11/23) Infection and inflammatory reaction due to indwelling urethral catheter, initial encounter (01/11/23) Subjective Subjective Still with some blood in urine. Objective Data Objective Data Vital Signs: Vital Signs Temp Pulse Resp BP Pulse Ox O2 Del Method 36.8 C 60 16 120/62 97 Room Air 01/14/23 03:45 01/14/23 03:45 01/14/23 03:45 01/14/23 03:45 01/14/23 03:45 01/14/23 03:45 Oxygen Delivery Method Room Air Weight: 92.533 kg Body Mass Index (BMI) 30.1 Intake & Output: Intake and Output for Last 24 Hours 01/12/23 01/13/23 01/14/23 23:59 23:59 23:59 Intake Total 970 / 970 690 / 690 600 / 600 Output Total 2250 / 2800 2250 / 2250 600 / 600 Balance -1280 / -1830 -1560 / -1560 0 / 0 Medical Nutrition Assessment Dietitian: Malnutrition Criteria Met Start: 01/12/23 12:44 Freq: Status: Active Protocol: Document 01/12/23 12:44 RMA (Rec: 01/12/23 12:44 RMA [id number]) Nutrition Malnutrition Evidence of Malnutrition Exists Yes Malnutrition (severe): Chronic Evidenced By Suboptimal Energy Intake ( Severe),Weight Loss (Severe) Clinical Problem Chronic Disease or Condition Related Malnutrition Etiology Severe protein-calorie malnutrition in the context of chronic disease and debility related to inadequate oral intake Signs/Symptoms as evidenced by PO meeting less than 50% estimated nutrition needs x past 3 months, PO meeting less than 75% estimated nutrition needs x past 6-12 months and weight loss ~20% x past 12 months Status Active Problem Recommendation Dietitian Recommendations/Changes Will liberalize diet to regular/no added salt given signs/symptoms of malnutrition ; fluid restriction as needed per physician. Will add 120ml chocolate ensure plus high protein 4 times per day w/ medpass. Adjust ONS as needed to optimize oral intake and prevent further weight loss. Lab / Micro Data Result Diagrams: 01/14/23 05:46 01/14/23 05:46 Labs: Laboratory Results - last 24 hr 01/11/23 12:30: Urine Color Brown, Urine Clarity Cloudy, Urine pH 5.0, Ur Specific [place] 1.010, Urine Protein 100 H, Urine Glucose (UA) Normal, Urine Ketones Negative, Urine Occult Blood 250 H, Urine Nitrite Negative, Urine Bilirubin Negative, Urine Urobilinogen Normal, Ur Leukocyte Esterase 500 H, Urine RBC 25-50 SEEN, Urine WBC >100 SEEN, Ur Squamous Epith Cells 0 SEEN, Urine Bacteria 2+, Urine Mucus 0 SEEN 01/14/23 05:46: WBC 8.0, RBC 2.80 L, Hgb 7.5 L, Hct 24.6 L, MCV 87.9, MCH 26.8 L , MCHC 30.5 L, RDW Std Deviation 51.7 H, RDW Coeff of [place] 16.5 H, Plt Count 363, MPV 10.0, Immature Gran % (Auto) 1.900 H, Neut % (Auto) 49.0, Lymph % (Auto) 31.8, [place] % (Auto) 10.2 H, Eos % (Auto) 6.4 H, Baso % (Auto) 0.7, Absolute Neuts (auto) 3.9, Absolute Lymphs (auto) 2.55, Nucleated RBC % 0 01/14/23 05:46: Sodium 135 L, Potassium 4.0, Chloride 107, Carbon Dioxide 23.0, Anion Gap 5, BUN 15, Creatinine 0.96, Estim Creat Clear Calc 55.23, Est GFR (MDRD) Af Amer 96, Est GFR (MDRD) Non-Af 79, BUN/Creatinine Ratio 15.7, Glucose 106, Calcium 8.4 L Micro: Microbiology 01/11/23 12:30 Urine, Catheterized Urine Culture - Preliminary Alpha Hemolytic Streptococcus 01/11/23 13:45 Stool Stool Occult Blood (FREDERIC) - Final Radiography Diagnostic Testing: Radiology Impression Abdomen/Pelvis CT 01/13/23 10:53 IMPRESSION: Bladder wall thickening concerning for cystitis. Left iliac weighing and right inferior pubic ramus lytic lesions consistent with bone metastases. Sclerotic foci within the thoracic spine, sacrum and iliac wings concerning for neoplastic process as well. Pathologically enlarged retroperitoneal and pelvic lymph nodes. New indeterminant low-attenuation foci within the liver, cannot exclude metastases. Atherosclerosis. Electronically Signed: Shavon Prescott MD at 13:07 EDT , Rhythm Strip Rhythm Strip: Sinus Rhythm Rate: 64 Ectopy: PVC(s) Physical Exam Const alert and no apparent distress Resp normal respiratory effort, no retractions, no use of accessory muscles and clear to auscultation bilaterally Cardio regular rate, regular rhythm, S1 normal heart sound and S2 normal heart sound GI normal to inspection, nondistended, normoactive bowel sounds, soft to palpation, non-tender and non-distended GI Narrative: dark orange urine will blood sediment in tubing. Extremity normal to inspection Assessment & Plan Assessment/Plan (1) Urinary tract infection associated with catheterization of urinary tract: QUALIFIERS: Encounter type: initial encounter Indwelling urinary catheter type: indwelling urethral catheter Qualified Code(s): T83.511A - Infection and inflammatory reaction due to indwelling urethral catheter, initial encounter; N39.0 - Urinary tract infection, site not specified PLAN: Urine culture shows no growth which was collected before the antibiotic. Fecal occult blood negative. Previous urine cultures off November 13, 2021 were positive for Enterococcus therefore started on Zosyn. Most recent urine culture from 12/14 was MRSE but in nonpathologic range [id number] colonies. UCx shows 10-25k alpha hemolytic strep. Will start nitrofurantoin (2) Acute blood loss anemia: PLAN: Acute blood loss anemia secondary to hematuria due to prostate cancer: Patient being admitted on MedSurg floor. UA shows WBC more than 100 cells, RBC 25-50 LE 500 but negative nitrite. Patient had 1 unit of PRBC transfusion and hemoglobin shows slight improvement 7.6. Iron infusion ordered. 01/13: Hemoglobin is gradually improving 7.9. 1 more iron infusion ordered. 01/14: will transfuse 1 more unit (total of 2) to keep Hg around 8 or greater given his known CAD (3) Debility: PLAN: Severe fatigue and generalized weakness probably multiple etiology, mostly from Xtandi, but chronic anemia, dementia/depression might also be contributing factor: Seen by PT, no additional therapy recommended. PLAN: Plan Chronic stable conditions: * CAD status post CABG and stents, hypertension and dyslipidemia: Patient had by pass with graft taken from lower extremity. Lower extremities have venous changes with grayish pigmentation and mild swelling but no seepage. ? His last stent was placed in 2014 so his antiplatelets in the setting of his hematuria and severe anemia are on hold. Patient no acute chest pain tightness or heaviness or symptoms of angina or ACS. ? Continue with Lipitor, atenolol, losartan, isosorbide mononitrate, and Lasix * GERD? Stable? Continue with PPI DVT: SCDs Disposition: TBD. if Hg stable, hematuria resolved. Eventually to home. Charges/Coding Visit Charges Inpatient E&M: 79561 Subs Hosp L2
[2023-01-14] MEDS: Nitrofurantoin Macrocrystals 100 MG Capsule PO ×2 (10:25→17:07)
[2023-01-14] MEDS: Ensure Plus High Protein 120 ML LIQUID PO ×4 (10:25→22:30)
[2023-01-14] MEDS: Pantoprazole Sodium 40 MG Tablet PO (10:26)
[2023-01-14] MEDS: Furosemide 20 MG Tablet PO (10:26)
[2023-01-14] MEDS: Isosorbide Mononitrate 60 MG Tablet PO ×2 (10:26→22:30)
[2023-01-14] MEDS: Senna Tablet 2 TABLET PO ×2 (10:26→22:30)
[2023-01-14] MEDS: Ascorbic Acid 500 MG Tablet 1000 MG PO (10:27)
[2023-01-14] MEDS: Atenolol 50 MG Tablet PO (22:30)
[2023-01-14] MEDS: MELATONIN 3 MG TABLET PO (22:30)
[2023-01-14] MEDS: Losartan Potassium 50 MG Tablet PO (22:30)
[2023-01-14] MEDS: Atorvastatin Calcium 40 MG Tablet PO (22:30)
[2023-01-15 02:10] VITALS: BP 134/57; PULSE 61; RESP 16; TEMP 36.6; O2SAT 96
[2023-01-15 06:22] LABS: Absolute Lymphocyte Count 2.66 X10^3/uL (0.83-4.51); Absolute Neutrophil Count 6.4 X10^3/uL (2.0-7.7); Basophil# 0.07 X10^3/uL; Basophil% 0.6 % (0-1); Eosinophil# 0.46 X10^3/uL; Eosinophils% 4.3 % (0-5); Hematocrit 26.7 % (40-54); Hemoglobin 8.7 g/dL (13.0-16.5); Lymphocyte # 2.66 X10^3/ul (0.83-4.51); Lymphocyte % 24.6 % (19-41); Mean Corp Hgb Conc 32.6 g/dL (32-36); Mean Corpuscular Hgb 28.1 pg (27.0-32.0); Mean Corpuscular Volume 86.1 fL (80-94); Mean Platelet Vol. 9.8 fl (6.2-12.0); Monocyte# 1.08 X10^3/uL; NRBC Flagged by Analyzer 0 % (0-5); Neutrophil # 6.43 X10^3/uL (2.7-7.7); Neutrophil % 59.5 % (47-70); Platelet Count 347 K/mm3 (150-450); RBC Distribution Width CV 16.4 % (11.6-14.6); RBC Distribution Width SD 49.2 fl (35.1-43.9); White Blood Count 10.8 K/mm3 (4.4-11.0)
[2023-01-15 06:57] LABS: Anion Gap 8 (5-15); BUN 13 mg/dL (7-18); BUN/Creat Ratio 14.7 RATIO (10-20); Calcium,Total 8.4 mg/dL (8.5-10.1); Chloride 104 mmol/L (98-107); Creatinine, Serum 0.88 mg/dL (0.70-1.30); EST Glomerular Filtration Rate 87 mL/min (>60); Est Glom Filt Rate - Afr Amer 105 mL/min (>60); Estimated Creatinine Clearance 60.26 ml/min; Glucose 132 mg/dL (74-106); Potassium 3.7 mmol/L (3.5-5.1); Sodium Level 136 mmol/L (136-145)
--- NOTE | 2023-01-15 07:41 | PCM.PN.HOSP ---
Reason for Visit Reason for Visit: Diagnoses Malignant neoplasm of prostate (01/11/23) Acute posthemorrhagic anemia (01/11/23) Anemia, unspecified (01/11/23) Urinary tract infection, site not specified (01/11/23) Other malaise (01/11/23) Infection and inflammatory reaction due to indwelling urethral catheter, initial encounter (01/11/23) Subjective Subjective No BM in past 2 days. He is concerned he could be very constipated if not addressed soon. Objective Data Objective Data Vital Signs: Vital Signs Temp Pulse Resp BP Pulse Ox O2 Del Method 36.6 C 61 16 134/57 H 96 Room Air 01/15/23 02:10 01/15/23 02:10 01/15/23 02:10 01/15/23 02:10 01/15/23 02:10 01/15/23 02:10 Oxygen Delivery Method Room Air Weight: 92.533 kg Body Mass Index (BMI) 30.1 Intake & Output: Intake and Output for Last 24 Hours 01/13/23 01/14/23 01/15/23 23:59 23:59 23:59 Intake Total 690 / 690 1000 / 1400 450 / 450 Output Total 2250 / 2250 2250 / 2750 500 / 500 Balance -1560 / -1560 -1250 / -1350 -50 / -50 Medical Nutrition Assessment Dietitian: Malnutrition Criteria Met Start: 01/12/23 12:44 Freq: Status: Active Protocol: Document 01/12/23 12:44 RMA (Rec: 01/12/23 12:44 RMA [id number]) Nutrition Malnutrition Evidence of Malnutrition Exists Yes Malnutrition (severe): Chronic Evidenced By Suboptimal Energy Intake ( Severe),Weight Loss (Severe) Clinical Problem Chronic Disease or Condition Related Malnutrition Etiology Severe protein-calorie malnutrition in the context of chronic disease and debility related to inadequate oral intake Signs/Symptoms as evidenced by PO meeting less than 50% estimated nutrition needs x past 3 months, PO meeting less than 75% estimated nutrition needs x past 6-12 months and weight loss ~20% x past 12 months Status Active Problem Recommendation Dietitian Recommendations/Changes Will liberalize diet to regular/no added salt given signs/symptoms of malnutrition ; fluid restriction as needed per physician. Will add 120ml chocolate ensure plus high protein 4 times per day w/ medpass. Adjust ONS as needed to optimize oral intake and prevent further weight loss. Lab / Micro Data Result Diagrams: 01/15/23 05:44 01/15/23 05:44 Labs: Laboratory Results - last 24 hr 01/11/23 11:50: Crossmatch See Detail 01/15/23 05:44: WBC 10.8, RBC 3.10 L, Hgb 8.7 L, Hct 26.7 L, MCV 86.1, MCH 28.1, MCHC 32.6 D, RDW Std Deviation 49.2 H, RDW Coeff of Randa 16.4 H, Plt Count 347, MPV 9.8, Immature Gran % (Auto) 1.000 H, Neut % (Auto) 59.5, Lymph % (Auto) 24.6, [place] % (Auto) 10.0, Eos % (Auto) 4.3, Baso % (Auto) 0.6, Absolute Neuts (auto) 6.4, Absolute Lymphs (auto) 2.66, Nucleated RBC % 0 01/15/23 05:44: Sodium 136, Potassium 3.7, Chloride 104, Carbon Dioxide 24.0, Anion Gap 8, BUN 13, Creatinine 0.88, Estim Creat Clear Calc 60.26, Est GFR (MDRD) Af Amer 105, Est GFR (MDRD) Non-Af 87, BUN/Creatinine Ratio 14.7, Glucose 132 H, Calcium 8.4 L Micro: Microbiology 01/11/23 12:30 Urine, Catheterized Urine Culture - Final Aerococcus urinae 01/11/23 13:45 Stool Stool Occult Blood (FREDERIC) - Final Rhythm Strip Rhythm Strip: Sinus Rhythm Rate: 64 Ectopy: PVC(s) Physical Exam Const Constitutional Narrative: groggy, [place], non-toxic. Resp normal respiratory effort, no retractions and no use of accessory muscles Cardio regular rate, regular rhythm, S1 normal heart sound and S2 normal heart sound GI normal to inspection, nondistended, normoactive bowel sounds, soft to palpation, non-tender and non-distended GI Narrative: : still with blood residue in tubing. dark red urine. Psych affect normal Assessment & Plan Assessment/Plan (1) Urinary tract infection associated with catheterization of urinary tract: QUALIFIERS: Encounter type: initial encounter Indwelling urinary catheter type: indwelling urethral catheter Qualified Code(s): T83.511A - Infection and inflammatory reaction due to indwelling urethral catheter, initial encounter; N39.0 - Urinary tract infection, site not specified PLAN: Urine culture shows no growth which was collected before the antibiotic. Fecal occult blood negative. Previous urine cultures off November 13, 2021 were positive for Enterococcus therefore started on Zosyn. Most recent urine culture from 12/14 was MRSE but in nonpathologic range [id number] colonies. UCx shows 10-25k Aerococcus urinae. Will start nitrofurantoin (2) Acute blood loss anemia: PLAN: Acute blood loss anemia secondary to hematuria due to prostate cancer: Patient being admitted on MedSur floor. UA shows WBC more than 100 cells, RBC 25-50 LE 500 but negative nitrite. Patient had 1 unit of PRBC transfusion and hemoglobin shows slight improvement 7.6. Iron infusion ordered. 01/13: Hemoglobin is gradually improving 7.9. 1 more iron infusion ordered. 01/14: will transfuse 1 more unit (total of 2) to keep Hg around 8 or greater given his known CAD 01/15: Hg 8.7 (3) Debility: PLAN: Severe fatigue and generalized weakness probably multiple etiology, mostly from Xtandi, but chronic anemia, dementia/depression might also be contributing factor: Seen by PT, no additional therapy recommended. (4) Hematuria: PLAN: ongoing continue to monitor for now. (5) Constipation: PLAN: no BM in 2 days per patient unable to tell me what he does at home. will give 10mg of dulcolax x1 PLAN: Plan Chronic stable conditions: CAD status post CABG and stents, hypertension and dyslipidemia: Patient had bypass with graft taken from lower extremity. Lower extremities have venous changes with grayish pigmentation and mild swelling but no seepage. ? His last stent was placed in 2014 so his antiplatelets in the setting of his hematuria and severe anemia are on hold. Patient no acute chest pain tightness or heaviness or symptoms of angina or ACS. ? Continue with Lipitor, atenolol, losartan, isosorbide mononitrate, and Lasix GERD? Stable? Continue with PPI DVT: SCDs Disposition: TBD. if Hg stable, hematuria resolved. Eventually to home. Charges/Coding Visit Charges Inpatient E&M: 38960 Subs Hosp L2
[2023-01-15 07:46] VITALS: BP 140/61; PULSE 65; RESP 16; TEMP 36.8; O2SAT 98
[2023-01-15] MEDS: Nitrofurantoin Macrocrystals 100 MG Capsule PO ×2 (07:47→18:34)
[2023-01-15] MEDS: Furosemide 20 MG Tablet PO (09:31)
[2023-01-15] MEDS: Isosorbide Mononitrate 60 MG Tablet PO ×2 (09:31→21:45)
[2023-01-15] MEDS: Pantoprazole Sodium 40 MG Tablet PO (09:32)
[2023-01-15] MEDS: Polyethylene Glycol 3350 17 GM PACKET PO (09:32)
[2023-01-15] MEDS: Senna Tablet 2 TABLET PO ×2 (09:32→21:45)
[2023-01-15] MEDS: Ascorbic Acid 500 MG Tablet 1000 MG PO (09:32)
[2023-01-15] MEDS: Bisacodyl 5 MG Tablet 10 MG PO (09:39)
[2023-01-15] MEDS: Ensure Plus High Protein 120 ML LIQUID PO ×4 (09:39→21:45)
[2023-01-15 13:51] VITALS: BP 135/64; PULSE 61; RESP 18; TEMP 36.4; O2SAT 96
[2023-01-15 20:31] VITALS: BP 156/60; PULSE 67; RESP 18; TEMP 36.6; O2SAT 100
[2023-01-15] MEDS: Menthol/Lanolin/Calamine/Znox 113 GM Tube 1 APPLIC TOPICAL (21:45)
[2023-01-15] MEDS: Atorvastatin Calcium 40 MG Tablet PO (21:45)
[2023-01-15] MEDS: MELATONIN 3 MG TABLET PO (21:45)
[2023-01-15] MEDS: Losartan Potassium 50 MG Tablet PO (21:45)
[2023-01-15] MEDS: Atenolol 50 MG Tablet PO (21:45)
[2023-01-16 06:24] VITALS: BP 102/46; PULSE 57; RESP 14; TEMP 36.9; O2SAT 95
[2023-01-16 06:25] LABS: Absolute Neutrophil Count 5.7 X10^3/uL (2.0-7.7); Basophil# 0.06 X10^3/uL; Basophil% 0.6 % (0-1); Hematocrit 27.5 % (40-54); Hemoglobin 8.6 g/dL (13.0-16.5); Lymphocyte % 25.3 % (19-41); Mean Corp Hgb Conc 31.3 g/dL (32-36); Mean Corpuscular Hgb 27.1 pg (27.0-32.0); Mean Corpuscular Volume 86.8 fL (80-94); Mean Platelet Vol. 9.9 fl (6.2-12.0); Monocyte# 1.01 X10^3/uL; Monocyte% 10.2 % (0-10); NRBC Flagged by Analyzer 0 % (0-5); Neutrophil # 5.74 X10^3/uL (2.7-7.7); Platelet Count 340 K/mm3 (150-450); RBC Distribution Width CV 16.7 % (11.6-14.6); RBC Distribution Width SD 51.2 fl (35.1-43.9); Red Blood Count 3.17 M/mm3 (4.6-6.2); White Blood Count 9.9 K/mm3 (4.4-11.0)
[2023-01-16 06:49] LABS: Anion Gap 5 (5-15); BUN 16 mg/dL (7-18); BUN/Creat Ratio 16.7 RATIO (10-20); Calcium,Total 8.5 mg/dL (8.5-10.1); Chloride 103 mmol/L (98-107); Creatinine, Serum 0.96 mg/dL (0.70-1.30); EST Glomerular Filtration Rate 79 mL/min (>60); Est Glom Filt Rate - Afr Amer 96 mL/min (>60); Estimated Creatinine Clearance 55.23 ml/min; Glucose 130 mg/dL (74-106); Potassium 3.6 mmol/L (3.5-5.1); Sodium Level 134 mmol/L (136-145)
--- NOTE | 2023-01-16 07:19 | PN.HOSP_ITS ---
Reason for Visit Reason for Visit: Diagnoses Malignant neoplasm of prostate (01/11/23) Acute posthemorrhagic anemia (01/11/23) Anemia, unspecified (01/11/23) Constipation, unspecified (01/11/23) Urinary tract infection, site not specified (01/11/23) Hematuria, unspecified (01/11/23) Other malaise (01/11/23) Infection and inflammatory reaction due to indwelling urethral catheter, initial encounter (01/11/23) Subjective Subjective Denies any complaints. Objective Data Objective Data Vital Signs: Vital Signs Temp Pulse Resp BP Pulse Ox O2 Del Method 36.9 C 57 L 14 102/46 L 95 Room Air 01/16/23 06:24 01/16/23 06:24 01/16/23 06:24 01/16/23 06:24 01/16/23 06:24 01/16/23 06:24 Oxygen Delivery Method Room Air Weight: 92.533 kg Body Mass Index (BMI) 30.1 Intake & Output: Intake and Output for Last 24 Hours 01/14/23 01/15/23 01/16/23 23:59 23:59 23:59 Intake Total 1000 / 1400 450 / 750 300 / 300 Output Total 2250 / 2750 1600 / 2300 1350 / 1350 Balance -1250 / -1350 -1150 / -1550 -1050 / -1050 Medical Nutrition Assessment Dietitian: Malnutrition Criteria Met Start: 01/12/23 12:44 Freq: Status: Active Protocol: Document 01/12/23 12:44 RMA (Rec: 01/12/23 12:44 RMA [id number]) Nutrition Malnutrition Evidence of Malnutrition Exists Yes Malnutrition (severe): Chronic Evidenced By Suboptimal Energy Intake ( Severe),Weight Loss (Severe) Clinical Problem Chronic Disease or Condition Related Malnutrition Etiology Severe protein-calorie malnutrition in the context of chronic disease and debility related to inadequate oral intake Signs/Symptoms as evidenced by PO meeting less than 50% estimated nutrition needs x past 3 months, PO meeting less than 75% estimated nutrition needs x past 6-12 months and weight loss ~20% x past 12 months Status Active Problem Recommendation Dietitian Recommendations/Changes Will liberalize diet to regular/no added salt given signs/symptoms of malnutrition ; fluid restriction as needed per physician. Will add 120ml chocolate ensure plus high protein 4 times per day w/ medpass. Adjust ONS as needed to optimize oral intake and prevent further weight loss. Lab / Micro Data Result Diagrams: 01/16/23 05:50 01/16/23 05:50 Labs: Laboratory Results - last 24 hr 01/16/23 05:50: WBC 9.9, RBC 3.17 L, Hgb 8.6 L, Hct 27.5 L, MCV 86.8, MCH 27.1, MCHC 31.3 L, RDW Std Deviation 51.2 H, RDW Coeff of [place] 16.7 H, Plt Count 340, MPV 9.9, Immature Gran % (Auto) 1.900 H, Neut % (Auto) 58.0, Lymph % (Auto) 25.3, [place] % (Auto) 10.2 H, Eos % (Auto) 4.0, Baso % (Auto) 0.6, Absolute Neuts (auto) 5.7, Absolute Lymphs (auto) 2.50, Nucleated RBC % 0 01/16/23 05:50: Sodium 134 L, Potassium 3.6, Chloride 103, Carbon Dioxide 26.0, Anion Gap 5, BUN 16, Creatinine 0.96, Estim Creat Clear Calc 55.23, Est GFR (MDRD) Af Amer 96, Est GFR (MDRD) Non-Af 79, BUN/Creatinine Ratio 16.7, Glucose 130 H, Calcium 8.5 Micro: Microbiology 01/11/23 12:30 Urine, Catheterized Urine Culture - Final Aerococcus urinae 01/11/23 13:45 Stool Stool Occult Blood (FREDERIC) - Final Rhythm Strip Rhythm Strip: Sinus Rhythm Rate: 64 Ectopy: PVC(s) Physical Exam Const alert and no apparent distress Resp normal respiratory effort, no retractions, no use of accessory muscles and clear to auscultation bilaterally Cardio regular rate, regular rhythm, S1 normal heart sound and S2 normal heart sound GI normal to inspection, nondistended, normoactive bowel sounds, soft to palpation, non-tender and non-distended GI Narrative: : debris in tubing. Dark orange urine. Extremity normal to inspection and full ROM Neuro oriented x3 Assessment & Plan Assessment/Plan (1) Urinary tract infection associated with catheterization of urinary tract: QUALIFIERS: Encounter type: initial encounter Indwelling urinary catheter type: indwelling urethral catheter Qualified Code(s): T83.511A - Infection and inflammatory reaction due to indwelling urethral catheter, initial encounter; N39.0 - Urinary tract infection, site not specified PLAN: Urine culture shows no growth which was collected before the antibiotic. Fecal occult blood negative. Previous urine cultures off November 13, 2021 were positive for Enterococcus therefore started on Zosyn. Most recent urine culture from 12/14 was MRSE but in nonpathologic range [id number] colonies. UCx shows 10-25k Aerococcus urinae. Will start nitrofurantoin (2) Acute blood loss anemia: PLAN: Acute blood loss anemia secondary to hematuria due to prostate cancer: Patient being admitted on MedSur floor. UA shows WBC more than 100 cells, RBC 25-50 LE 500 but negative nitrite. Patient had 1 unit of PRBC transfusion and hemoglobin shows slight improvement 7.6. Iron infusion ordered. 01/13: Hemoglobin is gradually improving 7.9. 1 more iron infusion ordered. 01/14: will transfuse 1 more unit (total of 2) to keep Hg around 8 or greater given his known CAD 01/15: Hg 8.7 01/16: Hg 8.6 (3) Debility: PLAN: Severe fatigue and generalized weakness probably multiple etiology, mostly from Xtandi, but chronic anemia, dementia/depression might also be contributing factor: Seen by PT, no additional therapy recommended. (4) Hematuria: PLAN: improved, still some residue. Advised to return if hematuria worsens (5) Constipation: PLAN: PRN dulcolax. PLAN: Plan Chronic stable conditions: * CAD status post CABG and stents, hypertension and dyslipidemia: Patient had bypass with graft taken from lower extremity. Lower extremities have venous changes with grayish pigmentation and mild swelling but no seepage. ? His last stent was placed in 2014 so his antiplatelets in the setting of his hematuria and severe anemia are on hold. Patient no acute chest pain tightness or heaviness or symptoms of angina or ACS. ? Continue with Lipitor, atenolol, losartan, isosorbide mononitrate, and Lasix * GERD? Stable? Continue with PPI * prostate cancer: seen by . Leave catheter in place. Follow up with in 1 month for catheter change. Hold Xtandi for now given weakness. DVT: SCDs Disposition: Home today.
[2023-01-16 08:07] VITALS: BP 114/47; PULSE 56; RESP 18; TEMP 36.7; O2SAT 97
[2023-01-16] MEDS: Nitrofurantoin Macrocrystals 100 MG Capsule PO (08:12)
[2023-01-16 09:19] VITALS: O2SAT 98
--- NOTE | 2023-01-16 09:22 | DCINST_ITS ---
Discharge Instructions Diet Discharge Diet: No restrictions Activity Discharge Activity: Return to Normal Activity Dressing / Incision Call your doctor if you observe: Shortness of breath, Swelling in the ankles and - (increased blood in urine. ) Follow Up Care Test Results: Test results from this visit will be discussed in further detail at your follow- up appointment, if applicable. Discharge Plan Admission Admit Date/Time: 01/11/23 14:58 Primary Reason for Your Visit: Hematuria. UTI. Attending Provider: Vinayak Rodriguez Primary Care Provider: Mauricio Salcido Consulting Providers: Yonny Lozano ; Kraig Howard ; Kenyon Francois Discharge Orders/Prescriptions Prescriptions: New losartan 50 mg Tablet 50 mg PO QHS Qty: 30 0RF nitrofurantoin monohyd/m-cryst 100 mg Capsule 100 mg PO BIDCM 4 Days Qty: 8 0RF ferrous sulfate 325 mg (65 mg iron) tablet 325 mg PO DAILY 14 Days Qty: 14 0RF Continued furosemide [Lasix] 40 MG tablet 20 mg PO DAILY ascorbic acid (vitamin C) [Vitamin C] 1,000 MG tablet 1,000 mg PO DAILY isosorbide mononitrate 60 MG tablet 60 mg PO BID omeprazole 20 MG capsule 20 mg PO DAILY atenolol 50 MG tablet 50 mg PO QHS cholecalciferol (vitamin D3) [Vitamin D3] 2,000 UNIT capsule 2,000 unit PO DAILY atorvastatin 40 MG tablet 40 mg PO QHS coenzyme Q10 100 MG capsule 200 mg PO DAILY Acidophilus Capsule 100 mg PO DAILY polyethylene glycol 3350 17 GM powder in packet 17 gm PO PRN PRN (Reason: Constipation) Held aspirin 81 mg Capsule 81 mg PO DAILY Hold Instructions: Resume on 01/21/23. Label Comments: LAST DOSE 10/05/21 Discontinued losartan 100 MG tablet 100 mg PO QHS Xtandi 40 mg Tablet 40 mg PO DAILY Rx Instructions: 2 tabs daily ciprofloxacin HCl [ciprofloxacin HCl] 500 MG tablet 500 mg PO BID Referrals / Follow Up: Mauricio Salcido DO [Primary Care Provider] - Within 1 Week Kraig Howard MD [Med Staff - Active Staff] - Within 1 Month Disposition Disposition (needs filled in before D/C Order can be placed): Home, Self Care
--- NOTE | 2023-01-16 09:27 | DS.PCM_ITS ---
Providers Date of Admission: 01/11/23 Primary Care Physician: Dr. Mauricio Salcido, DO Consultations 01/12/23 13:13 Consult: Urology Routine Consulting Provider: Kraig Howard Reason for Consult: Hematuria with Prostate cancer, severe anemia EMERGENT Consult: No MD Notified: Yes Date Notified: 01/12/23 Time Notified: 13:13 Method of Notification: Text Reason For Visit: UTI AND ANEMIA Diagnosis Discharge Diagnosis (1) Urinary tract infection associated with catheterization of urinary tract: Status: Acute Code(s): T83.511A - Infection and inflammatory reaction due to indwelling urethral catheter, initial encounter; N39.0 - Urinary tract infection, site not specified Qualifiers: Indwelling urinary catheter type: indwelling urethral catheter Encounter type: initial encounter Qualified Code(s): T83.511A - Infection and inflammatory reaction due to indwelling urethral catheter, initial encounter; N39.0 - Urinary tract infection, site not specified Plan: Urine culture shows no growth which was collected before the antibiotic. Fecal occult blood negative. Previous urine cultures off November 13, 2021 were positi ve for Enterococcus therefore started on Zosyn. Most recent urine culture from 12/14 was MRSE but in nonpathologic range [id number] colonies. UCx shows 10-25k Aerococcus urinae. Will start nitrofurantoin (2) Acute blood loss anemia: Status: Acute Code(s): D62 - Acute posthemorrhagic anemia Plan: Acute blood loss anemia secondary to hematuria due to prostate cancer: Patient being admitted on MedSurg floor. UA shows WBC more than 100 cells, RBC 25-50 LE 500 but negative nitrite. Patient had 1 unit of PRBC transfusion and hemoglobin shows slight improvement 7.6. Iron infusion ordered. 01/13: Hemoglobin is gradually improving 7.9. 1 more iron infusion ordered. 01/14: will transfuse 1 more unit (total of 2) to keep Hg around 8 or greater given his known CAD 01/15: Hg 8.7 01/16: Hg 8.6. Add 2 week coarse of Ferrous sulfate 325 mg/d (3) Debility: Status: Acute Code(s): R53.81 - Other malaise Plan: Severe fatigue and generalized weakness probably multiple etiology, mostly from Xtandi, but chronic anemia, dementia/depression might also be contributing factor: Seen by PT, no additional therapy recommended. (4) Hematuria: Status: Acute Code(s): R31.9 - Hematuria, unspecified Plan: improved, still some residue. Advised to return if hematuria worsens Resume ASA 4/3. (5) Constipation: Status: Acute Code(s): K59.00 - Constipation, unspecified Plan: PRN dulcolax. Plan Chronic stable conditions: * CAD status post CABG and stents, hypertension and dyslipidemia: Patient had bypass with graft taken from lower extremity. Lower extremities have venous changes with grayish pigmentation and mild swelling but no seepage. ? His last stent was placed in 2014 so his antiplatelets in the setting of his hematuria and severe anemia are on hold. Patient no acute chest pain tightness or heaviness or symptoms of angina or ACS. ? Continue with Lipitor, atenolol, losartan, isosorbide mononitrate, and Lasix * GERD? Stable? Continue with PPI * prostate cancer: seen by . Leave catheter in place. Follow up with in 1 month for catheter change. Hold Xtandi for now given weakness. DVT: SCDs Disposition: Home today. Medications at Discharge Home Medications ascorbic acid (vitamin C) 1,000 mg tablet (Vitamin C) 1,000 mg PO DAILY SUPPLEMENT 11/05/17 atenolol 50 mg tablet 50 mg PO QHS blood pressure 11/05/17 cholecalciferol (vitamin D3) 50 mcg (2,000 unit) capsule (Vitamin D3) 2,000 unit PO DAILY SUPPLEMENT 11/05/17 furosemide 40 mg tablet (Lasix) 20 mg PO DAILY DIURETIC/water pill 11/05/17 isosorbide mononitrate 60 mg tablet,extended release 24 hr 60 mg PO BID HEART 11/05/17 omeprazole 20 mg capsule,delayed release 20 mg PO DAILY REFLUX 11/05/17 atorvastatin 40 mg tablet 40 mg PO QHS cholesterol 04/25/20 coenzyme Q10 100 mg capsule 200 mg PO DAILY supplement 04/25/20 Lactobacillus acidophilus (Acidophilus capsule) 100 mg PO DAILY supplement 1 12/05/20 aspirin 81 mg capsule 81 mg PO DAILY [facility] 10/04/21 polyethylene glycol 3350 17 gram oral powder packet 17 gm PO PRN PRN Constipation 10/04/21 bisacodyl 5 mg tablet,delayed release (Dulcolax (bisacodyl)) 5 mg PO DAILY PRN constipation 2 days #2 tabs 01/16/23 ferrous sulfate 325 mg (65 mg iron) tablet 325 mg PO DAILY 14 days #14 tabs 01/16/23 losartan 50 mg tablet 50 mg PO QHS #30 tabs 01/16/23 nitrofurantoin monohydrate/macrocrystals 100 mg capsule 100 mg PO BIDCM 4 days #8 caps 01/16/23 Hospital Course Operations None Procedures None Summary of Care Provided Minutes Spent on Discharge: 35 Medical Records Data Medical Nutrition Assessment Dietitian: Malnutrition Criteria Met Start: 01/12/23 12:44 Freq: Status: Active Protocol: Document 01/12/23 12:44 RMA (Rec: 01/12/23 12:44 RMA [id number]) Nutrition Malnutrition Evidence of Malnutrition Exists Yes Malnutrition (severe): Chronic Evidenced By Suboptimal Energy Intake ( Severe),Weight Loss (Severe) Clinical Problem Chronic Disease or Condition Related Malnutrition Etiology Severe protein-calorie malnutrition in the context of chronic disease and debility related to inadequate oral intake Signs/Symptoms as evidenced by PO meeting less than 50% estimated nutrition needs x past 3 months, PO meeting less than 75% estimated nutrition needs x past 6-12 months and weight loss ~20% x past 12 months Status Active Problem Recommendation Dietitian Recommendations/Changes Will liberalize diet to regular/no added salt given signs/symptoms of malnutrition ; fluid restriction as needed per physician. Will add 120ml chocolate ensure plus high protein 4 times per day w/ medpass. Adjust ONS as needed to optimize oral intake and prevent further weight loss. Weight / BMI Weight Weight: 92.533 kg Body Mass Index (BMI) 30.1 ABG / Lab / Microbiology Data Result Diagrams: 01/16/23 05:50 01/16/23 05:50 Laboratory: Laboratory Results - last 24 hr 01/16/23 05:50: WBC 9.9, RBC 3.17 L, Hgb 8.6 L, Hct 27.5 L, MCV 86.8, MCH 27.1, MCHC 31.3 L, RDW Std Deviation 51.2 H, RDW Coeff of Randa 16.7 H, Plt Count 340, MPV 9.9, Immature Gran % (Auto) 1.900 H, Neut % (Auto) 58.0, Lymph % (Auto) 25.3, [place] % (Auto) 10.2 H, Eos % (Auto) 4.0, Baso % (Auto) 0.6, Absolute Neuts (auto) 5.7, Absolute Lymphs (auto) 2.50, Nucleated RBC % 0 01/16/23 05:50: Sodium 134 L, Potassium 3.6, Chloride 103, Carbon Dioxide 26.0, Anion Gap 5, BUN 16, Creatinine 0.96, Estim Creat Clear Calc 55.23, Est GFR (MDRD) Af Amer 96, Est GFR (MDRD) Non-Af 79, BUN/Creatinine Ratio 16.7, Glucose 130 H, Calcium 8.5 Microbiology: Microbiology 01/11/23 12:30 Urine, Catheterized Urine Culture - Final Aerococcus urinae 01/11/23 13:45 Stool Stool Occult Blood (FREDERIC) - Final D/C Instructions Discharge Diet: No restrictions Call your doctor if you observe: Shortness of breath, Swelling in the ankles and - (increased blood in urine. ) Meaningful Use Info Meaningful Use Diagnoses (Choose all that apply): None applicable Discharge Plan Admission Admit Date/Time: 01/11/23 14:58 Primary Reason for Your Visit: Hematuria. UTI. Attending Provider: Vinayak Rodriguez Primary Care Provider: Mauricio Salcido Consulting Providers: Yonny Lozano ; Kraig Howard ; Kenyon Francois Discharge Orders/Prescriptions Prescriptions: New losartan 50 mg Tablet 50 mg PO QHS Qty: 30 0RF nitrofurantoin monohyd/m-cryst 100 mg Capsule 100 mg PO BIDCM 4 Days Qty: 8 0RF ferrous sulfate 325 mg (65 mg iron) tablet 325 mg PO DAILY 14 Days Qty: 14 0RF bisacodyl [Dulcolax (bisacodyl)] 5 mg tablet,delayed release (DR/EC) 5 mg PO DAILY PRN (Reason: constipation) 2 Days Qty: 2 0RF Continued furosemide [Lasix] 40 MG tablet 20 mg PO DAILY ascorbic acid (vitamin C) [Vitamin C] 1,000 MG tablet 1,000 mg PO DAILY isosorbide mononitrate 60 MG tablet 60 mg PO BID omeprazole 20 MG capsule 20 mg PO DAILY atenolol 50 MG tablet 50 mg PO QHS cholecalciferol (vitamin D3) [Vitamin D3] 2,000 UNIT capsule 2,000 unit PO DAILY atorvastatin 40 MG tablet 40 mg PO QHS coenzyme Q10 100 MG capsule 200 mg PO DAILY Acidophilus Capsule 100 mg PO DAILY polyethylene glycol 3350 17 GM powder in packet 17 gm PO PRN PRN (Reason: Constipation) Held aspirin 81 mg Capsule 81 mg PO DAILY Hold Instructions: Resume on 01/21/23. Label Comments: LAST DOSE 10/05/21 Discontinued losartan 100 MG tablet 100 mg PO QHS Xtandi 40 mg Tablet 40 mg PO DAILY Rx Instructions: 2 tabs daily ciprofloxacin HCl [ciprofloxacin HCl] 500 MG tablet 500 mg PO BID Referrals / Follow Up: Mauricio Salcido DO [Primary Care Provider] - Within 1 Week Kraig Howard MD [Med Staff - Active Staff] - Within 1 Month Disposition Disposition (needs filled in before D/C Order can be placed): Home, Self Care Charges/Coding Visit Charges Inpatient E&M: 92888 Disch Hosp >30min
[2023-01-16] MEDS: Furosemide 20 MG Tablet PO (09:31)
[2023-01-16] MEDS: Isosorbide Mononitrate 60 MG Tablet PO (09:31)
[2023-01-16] MEDS: Pantoprazole Sodium 40 MG Tablet PO (09:31)
[2023-01-16] MEDS: Ensure Plus High Protein 120 ML LIQUID PO (09:31)
[2023-01-16] MEDS: Ascorbic Acid 500 MG Tablet 1000 MG PO (09:31)
[2023-01-16] MEDS: Polyethylene Glycol 3350 17 GM PACKET PO (09:31)
[2023-01-16] MEDS: Menthol/Lanolin/Calamine/Znox 113 GM Tube 1 APPLIC TOPICAL (09:33)
--- NOTE | 2023-01-16 10:29 | CASEMGMT ---
ASAD CM in to pt room. Pt sitting up in chair in no distress. Pt denies any homegoing needs. Pt is comfortable with the catheter as he has had one in the past.
[2023-01-16 10:48] VITALS: BP 114/47; PULSE 56; RESP 18; TEMP 36.7; O2SAT 97
--- NOTE | 2023-01-16 11:00 | PHA.DC.MR ---
Pharmacy Service has performed discharge medication reconciliation for this patient. The patient's discharge medication list was reviewed for discrepancies and discrepancies were resolved. Attempted to counselor education professor but was unable to. Home Medications ascorbic acid (vitamin C) 1,000 mg tablet (Vitamin C) 1,000 mg PO DAILY SUPPLEMENT 11/05/17 atenolol 50 mg tablet 50 mg PO QHS blood pressure 11/05/17 cholecalciferol (vitamin D3) 50 mcg (2,000 unit) capsule (Vitamin D3) 2,000 unit PO DAILY SUPPLEMENT 11/05/17 furosemide 40 mg tablet (Lasix) 20 mg PO DAILY DIURETIC/water pill 11/05/17 isosorbide mononitrate 60 mg tablet,extended release 24 hr 60 mg PO BID HEART 11/05/17 omeprazole 20 mg capsule,delayed release 20 mg PO DAILY REFLUX 11/05/17 atorvastatin 40 mg tablet 40 mg PO QHS cholesterol 04/25/20 coenzyme Q10 100 mg capsule 200 mg PO DAILY supplement 04/25/20 Lactobacillus acidophilus (Acidophilus capsule) 100 mg PO DAILY supplement 10/04/21 aspirin 81 mg capsule 81 mg PO DAILY heart health 10/04/21 polyethylene glycol 3350 17 gram oral powder packet 17 gm PO PRN PRN Constipation 10/04/21 bisacodyl 5 mg tablet,delayed release (Dulcolax (bisacodyl)) 5 mg PO DAILY PRN constipation 2 days #2 tabs 01/16/23 ferrous sulfate 325 mg (65 mg iron) tablet 325 mg PO DAILY 14 days #14 tabs 01/16/23 losartan 50 mg tablet 50 mg PO QHS #30 tabs 01/16/23 nitrofurantoin monohydrate/macrocrystals 100 mg capsule 100 mg PO BIDCM 4 days #8 caps 01/16/23
== END 2023-01-16 12:38 | disposition home or self-care (01) | DRG 699 ==
LOC: ED 14:48 → MS3 15:25
PROVIDERS: Internal Medicine; Admitting Provider Family Medicine; Emergency Provider Emergency Medicine; PCP Family Medicine
DX: T83.511A Infection and inflammatory reaction due to indwelling urethral catheter, initial encounter (principal); D62 Acute posthemorrhagic anemia; I50.22 Chronic systolic (congestive) heart failure; C61 Malignant neoplasm of prostate; F03.90 Unspecified dementia, unspecified severity, without behavioral disturbance, psychotic disturbance, mood disturbance, and anxiety; E78.5 Hyperlipidemia, unspecified; B95.2 Enterococcus as the cause of diseases classified elsewhere; I11.0 Hypertensive heart disease with heart failure; I25.10 Atherosclerotic heart disease of native coronary artery without angina pectoris; K21.9 Gastro-esophageal reflux disease without esophagitis; K59.00 Constipation, unspecified; Z87.891 Personal history of nicotine dependence; Z79.82 Long term (current) use of aspirin; Z82.3 Family history of stroke; Z95.5 Presence of coronary angioplasty implant and graft; F32.A Depression, unspecified; N39.0 Urinary tract infection, site not specified; R31.9 Hematuria, unspecified; R53.81 Other malaise
CPT/HCPCS: 36415; 51702; 74177; 80048; 81001; 82274; 85014; 85018; 85025; 86850; 86900; 86901; 86920; 86922; 87077; 87086; 87088; 93005; 97116; 97162; 97165; 97530; 97535; 99284; J7040; J7050; P9016; P9040; Q9967; A4216; J2916

== ENCOUNTER 2023-03-08 14:30 | Emergency (ER) | payer MEDICARE, OTHER, SELFPAY ==
[2023-03-08 14:31] VITALS: BP 107/51; PULSE 62; RESP 16; TEMP 36.6; O2SAT 99
[2023-03-08 15:14] LABS: Bacteria 0 SEEN /hpf (None Seen); Mucous, Urine 0 SEEN /hpf (<or=2+); Squamous Epithelial Cells - UA 0 SEEN /hpf (0-5)
[2023-03-08 15:28] LABS: Color, Urine Yellow (Yellow); Glucose, Dipstick Normal (Normal); Ketone-Dipstick Negative (Negative); Leukocyte Esterase-Dipstick 500 /ul (Negative); Nitrite-Dipstick Negative (Negative); Occult Blood-Urine 250 /ul (Negative); Protein-Dipstick 30 mg/dl (Negative); Specific Gravity, Urine 1.005 (1.002-1.030); Urine Bilirubin Dipstick Negative (Negative); Urine Clarity Clear (Clear); Urine Urobilinogen Normal (Normal)
--- NOTE | 2023-03-08 15:38 | EDS_ITS ---
HPI History of Present Illness Chief Complaint: Complaint Informant: patient and family Narrative Narrative: Patient is an 88-year-old male with history of BPH, hematuria and prostate cancer with transurethral resection of the prostate presenting with Archuleta dys function. Patient was due for his first home Archuleta exchange today however the home health nurse was not able to get the Archuleta back in. This was around 2 PM. He then came to the emergency room for Archuleta placement. Patient had had normal drainage of his urine. He states his hematuria had resolved. No other complaints at this time. [facility] Medical History Atrial fibrillation BPH with obstruction/lower urinary tract symptoms Cancer Cardiology follow-up encounter Chronic systolic heart failure Constipation Constipation Coronary artery disease CPAP (continuous positive airway pressure) dependence Encounter for screening for COVID-19 Former smoker Gastric reflux GERD (gastroesophageal reflux disease) High cholesterol History of atrial fibrillation History of echocardiogram History of heart attack History of stress test History of ulceration Hypertension Hypertension Myocardial infarction Obstructive sleep apnea Osteoarthritis of left knee Prostate cancer Prostate cancer Prostate disease Shortness of breath on exertion Sleep apnea Vitamin D deficiency Weakness Wears glasses Home Medications ascorbic acid (vitamin C) 1,000 mg tablet (Vitamin C) 1,000 mg PO DAILY SUPPLEMENT 11/05/17 [History Last Taken 01/11/23] atenolol 50 mg tablet 50 mg PO QHS blood pressure 11/05/17 [History Last Taken 01/10/23] cholecalciferol (vitamin D3) 50 mcg (2,000 unit) capsule (Vitamin D3) 2,000 unit PO DAILY SUPPLEMENT 11/05/17 [History Last Taken 01/11/23] furosemide 40 mg tablet (Lasix) 20 mg PO DAILY DIURETIC/water pill 11/05/17 [History Last Taken 01/11/23] isosorbide mononitrate 60 mg tablet,extended release 24 hr 60 mg PO BID HEART 11/05/17 [History Last Taken 01/10/23] omeprazole 20 mg capsule,delayed release 20 mg PO DAILY REFLUX 11/05/17 [History Last Taken 01/11/23] atorvastatin 40 mg tablet 40 mg PO QHS cholesterol 04/25/20 [History Last Taken 01/10/23] coenzyme Q10 100 mg capsule 200 mg PO DAILY supplement 04/25/20 [History Last Taken 01/11/23] Lactobacillus acidophilus (Acidophilus capsule) 100 mg PO DAILY supplement 10/04/21 [History Last Taken 01/11/23] aspirin 81 mg capsule 81 mg PO DAILY heart health 10/04/21 [History Last Taken 01/11/23] polyethylene glycol 3350 17 gram oral powder packet 17 gm PO PRN PRN Constipation 10/04/21 [History Last Taken Unknown] bisacodyl 5 mg tablet,delayed release (Dulcolax (bisacodyl)) 5 mg PO DAILY PRN constipation 2 days #2 tabs 01/16/23 [Rx Last Taken Unknown] ferrous sulfate 325 mg (65 mg iron) tablet 325 mg PO DAILY 14 days #14 tabs 01/16/23 [Rx Last Taken Unknown] losartan 50 mg tablet 50 mg PO QHS #30 tabs 01/16/23 [Rx Last Taken Unknown] nitrofurantoin monohydrate/macrocrystals 100 mg capsule 100 mg PO BIDCM 4 days #8 caps 01/16/23 [Rx Last Taken Unknown] Allergy/AdvReac Type Severity Reaction Status Date / Time No Known Allergies Allergy Verified 03/08/23 14:32 Family History Other CVA (cerebral vascular accident) Cancer Heart disease Surgical History History of cardiac catheterization History of coronary artery stent placement History of heart surgery Hx laparoscopic cholecystectomy Hx of CABG Hx of surgical procedure Hx of tonsillectomy Hx of total knee replacement Hx of transurethral resection of prostate Social History household members: other Smoking Status: Former smoker substance use type: does not use ROS ROS ED Constitutional Constitutional ED: Denies chills or fever(s) Cardiovascular Cardiovascular: Denies chest pain Gastrointestinal Gastrointestinal: Denies abdominal pain, nausea or vomiting Genitourinary Genitourinary ED: Reports other Details: Archuleta dislodged Musculoskeletal Musculoskeletal: Denies arthralgias or myalgias Psychiatric Psychiatric: Denies anxiety EXAM Physical Exam Const Vital Signs: 03/08/23 14:31 Temperature 98 F Temperature Source Temporal Pulse Rate 62 Respiratory Rate 16 Blood Pressure 107/51 L Blood Pressure Mean 69 Pulse Ox 99 Oxygen Delivery Method Room Air Positive well nourished and well developed General Appearance ED: well developed and NAD HEENT Reports moist mucous membranes Eyes PERRL and EOMs intact bilaterally Resp normal respiratory effort and clear to auscultation bilaterally Cardio regular rate, regular rhythm and no murmurs GI non-tender and non-distended Narrative: Slight bleeding at the meatus. Uncircumcised Extremity normal to inspection General Extremety ED: Negative for edema General Extremity: Negative for edema Neuro oriented x3 Sensorium / Orientation: alert Psych mental status grossly normal MDM MDM MDM Narrative Medical decision making narrative: Patient is evaluated for need for Archuleta catheter. He has a chronic indwelling Archuleta catheter. He was scheduled for routine Archuleta catheter exchange but they were unable to get a new catheter in place. Nursing staff does meet resistance with a coud? catheter. After couple attempts I was able to place an 18 [place] coud? catheter. Urinalysis was sent and culture however as he is asymptomatic at this time we will refrain from any treatments. Patient will follow-up with urology as needed. Given return precautions. Patient agreeable with plan of care. Discharged home in stable improved condition. As his Archuleta catheter was only out for about an hour I do not think he sustained acute kidney injury from urinary retention I do not think blood work is indicated at this time. Lab Data Attestation: I reviewed the patient's lab results. Labs: Laboratory Results - last 24 hr 03/08/23 15:00 Urine Color Yellow Urine Clarity Clear Urine pH 6.0 Ur Specific [place] 1.005 Urine Protein 30 H Urine Glucose (UA) Normal Urine Ketones Negative Urine Occult Blood 250 H Urine Nitrite Negative Urine Bilirubin Negative Urine Urobilinogen Normal Ur Leukocyte Esterase 500 H Urine RBC 0-5 SEEN Urine WBC 5-10 SEEN Ur Squamous Epith Cells 0 SEEN Urine Bacteria 0 SEEN Urine Mucus 0 SEEN Discharge Plan Triage Chief Complaint: Complaint ED Provider: Shelby Emerson Dx/Rx/DC Orders Clinical Impression: Malfunction of Archuleta catheter Instructions: ED Urinary Retention, Male Prescriptions: No Action furosemide [Lasix] 40 MG tablet 20 mg PO DAILY ascorbic acid (vitamin C) [Vitamin C] 1,000 MG tablet 1,000 mg PO DAILY isosorbide mononitrate 60 MG tablet 60 mg PO BID omeprazole 20 MG capsule 20 mg PO DAILY atenolol 50 MG tablet 50 mg PO QHS cholecalciferol (vitamin D3) [Vitamin D3] 2,000 UNIT capsule 2,000 unit PO DAILY atorvastatin 40 MG tablet 40 mg PO QHS coenzyme Q10 100 MG capsule 200 mg PO DAILY Acidophilus Capsule 100 mg PO DAILY aspirin 81 mg Capsule 81 mg PO DAILY Hold Instructions: Resume on 10/25/21. Label Comments: LAST DOSE 10/05/21 polyethylene glycol 3350 17 GM powder in packet 17 gm PO PRN PRN (Reason: Constipation) losartan 50 mg Tablet 50 mg PO QHS Qty: 30 0RF nitrofurantoin monohyd/m-cryst 100 mg Capsule 100 mg PO BIDCM 4 Days Qty: 8 0RF ferrous sulfate 325 mg (65 mg iron) tablet 325 mg PO DAILY 14 Days Qty: 14 0RF bisacodyl [Dulcolax (bisacodyl)] 5 mg tablet,delayed release (DR/EC) 5 mg PO DAILY PRN (Reason: constipation) 2 Days Qty: 2 0RF Primary Care Provider: Mauricio Salcido Referrals: Mauricio Salcido DO [Primary Care Provider] - Kraig Howard MD [Med Staff - Active Staff] - As Needed Disposition Disposition: Home, Self Care Discharge Date/Time: 03/08/23 16:25
[2023-03-08 16:07] LABS: Red Blood Cells-Urine 0-5 SEEN /hpf (0-5); White Blood Cells 5-10 SEEN /hpf (0-5)
== END 2023-03-08 16:25 | disposition home or self-care (01) ==
PROVIDERS: Emergency Provider Emergency Medicine; PCP Family Medicine; Visit Provider Emergency Medicine
DX: T83.011A Breakdown (mechanical) of indwelling urethral catheter, initial encounter (principal); I11.0 Hypertensive heart disease with heart failure; I50.22 Chronic systolic (congestive) heart failure; I48.91 Unspecified atrial fibrillation; C61 Malignant neoplasm of prostate; I25.10 Atherosclerotic heart disease of native coronary artery without angina pectoris; E78.00 Pure hypercholesterolemia, unspecified; N40.1 Benign prostatic hyperplasia with lower urinary tract symptoms; R31.9 Hematuria, unspecified; K21.9 Gastro-esophageal reflux disease without esophagitis; E55.9 Vitamin D deficiency, unspecified; G47.33 Obstructive sleep apnea (adult) (pediatric); I25.2 Old myocardial infarction; Z95.1 Presence of aortocoronary bypass graft; Z79.82 Long term (current) use of aspirin; Z79.899 Other long term (current) drug therapy; Z86.16 Personal history of COVID-19; Z87.891 Personal history of nicotine dependence
CPT/HCPCS: 51702; 81001; 87077; 87086; 87088; 87186; 99283

== ENCOUNTER 2023-04-12 11:43 | Emergency (ER) | payer MEDICARE, OTHER, SELFPAY ==
[2023-04-12 11:44] VITALS: BP 124/91; PULSE 81; RESP 18; TEMP 36.6; O2SAT 93
[2023-04-12 12:02] VITALS: BMI 27.3
--- NOTE | 2023-04-12 12:11 | EX.ED.DYSGE1 ---
HPI <MIRANDA Dsouza - Last Filed: 04/12/23 17:34> History of Present Illness Chief Complaint: Complaint Narrative Narrative: Patient presenting today due to Archuleta dysfunction. Patient has a history of BPH, hematuria, and prostate cancer with transurethral resection of the prostate. Yesterday he saw Dr. Howard who replaced his Archuleta catheter. Since yesterday evening, urine has been leaking around the Archuleta site, with only some of it making it into the bag. Patient's son tried to flush the Archuleta but met resistance and was unsuccessful. They called Dr. Hwoard this morning who recommended coming to the emergency department to have the Archuleta irrigated and possibly changed. He admits to some hematuria but reports that that is normal after having his Archuleta replaced. PFS <MIRANDA Dsouza - Last Filed: 04/12/23 17:34> [facility] Medical History Atrial fibrillation BPH with obstruction/lower urinary tract symptoms Cancer Cardiology follow-up encounter Chronic systolic heart failure Constipation Constipation Coronary artery disease CPAP (continuous positive airway pressure) dependence Encounter for screening for COVID-19 Former smoker Gastric reflux GERD (gastroesophageal reflux disease) High cholesterol History of atrial fibrillation History of echocardiogram History of heart attack History of stress test History of ulceration Hypertension Hypertension Myocardial infarction Obstructive sleep apnea Osteoarthritis of left knee Prostate cancer Prostate cancer Prostate disease Shortness of breath on exertion Sleep apnea Vitamin D deficiency Weakness Wears glasses Home Medications ascorbic acid (vitamin C) 1,000 mg tablet (Vitamin C) 1,000 mg PO DAILY SUPPLEMENT 11/05/17 [History Last Taken 01/11/23] atenolol 50 mg tablet 50 mg PO QHS blood pressure 11/05/17 [History Last Taken 01/10/23] cholecalciferol (vitamin D3) 50 mcg (2,000 unit) capsule (Vitamin D3) 2,000 unit PO DAILY SUPPLEMENT 11/05/17 [History Last Taken 01/11/23] furosemide 40 mg tablet (Lasix) 20 mg PO DAILY DIURETIC/water pill 11/05/17 [History Last Taken 01/11/23] isosorbide mononitrate 60 mg tablet,extended release 24 hr 60 mg PO BID HEART 11/05/17 [History Last Taken 01/10/23] omeprazole 20 mg capsule,delayed release 20 mg PO DAILY REFLUX 11/05/17 [History Last Taken 01/11/23] atorvastatin 40 mg tablet 40 mg PO QHS cholesterol 04/25/20 [History Last Taken 01/10/23] coenzyme Q10 100 mg capsule 200 mg PO DAILY supplement 04/25/20 [History Last Taken 01/11/23] Lactobacillus acidophilus (Acidophilus capsule) 100 mg PO DAILY supplement 10/04/21 [History Last Taken 01/11/23] aspirin 81 mg capsule 81 mg PO DAILY heart health 10/04/21 [History Last Taken 01/11/23] polyethylene glycol 3350 17 gram oral powder packet 17 gm PO PRN PRN Constipation 10/04/21 [History Last Taken Unknown] bisacodyl 5 mg tablet,delayed release (Dulcolax (bisacodyl)) 5 mg PO DAILY PRN constipation 2 days #2 tabs 01/16/23 [Rx Last Taken Unknown] ferrous sulfate 325 mg (65 mg iron) tablet 325 mg PO DAILY 14 days #14 tabs 01/16/23 [Rx Last Taken Unknown] losartan 50 mg tablet 50 mg PO QHS #30 tabs 01/16/23 [Rx Last Taken Unknown] nitrofurantoin monohydrate/macrocrystals 100 mg capsule 100 mg PO BIDCM 4 days #8 caps 01/16/23 [Rx Last Taken Unknown] cephalexin 500 mg capsule 500 mg PO Q6 7 days #27 CAPSULES 04/12/23 [Rx Last Taken Unknown] Allergy/AdvReac Type Severity Reaction Status Date / Time No Known Allergies Allergy Verified 03/08/23 14:32 Family History Other CVA (cerebral vascular accident) Cancer Heart disease Surgical History History of cardiac catheterization History of coronary artery stent placement History of heart surgery Hx laparoscopic cholecystectomy Hx of CABG Hx of surgical procedure Hx of tonsillectomy Hx of total knee replacement Hx of transurethral resection of prostate Social History household members: other Smoking Status: Former smoker substance use type: does not use ROS <MIRANDA Dsouza - Last Filed: 04/12/23 17:34> ROS ED Constitutional Constitutional ED: Denies chills or fever(s) Cardiovascular Cardiovascular: Denies chest pain Respiratory/Chest Respiratory/Chest: Denies cough or dyspnea Gastrointestinal Gastrointestinal: Denies abdominal pain, nausea or vomiting Genitourinary Genitourinary ED: Reports hematuria Musculoskeletal Musculoskeletal: Denies arthralgias or myalgias Integumentary Denies rash Neurologic Neurologic: Denies weakness EXAM <MIRANDA Dsouza - Last Filed: 04/12/23 17:34> Physical Exam Const Vital Signs: 04/12/23 11:44 04/12/23 17:20 Temperature 97.8 F 18 F L Temperature Source Temporal Pulse Rate 81 82 Respiratory Rate 18 Blood Pressure 124/91 H Blood Pressure Mean 102 Pulse Ox 93 Oxygen Delivery Method Room Air Positive well nourished, well developed and no apparent distress General Appearance ED: well developed HEENT Reports normocephalic and head/scalp atraumatic Mouth ED: Yes moist mucous membranes normal Eyes PERRL and EOMs intact bilaterally Neck full ROM and supple Chest Wall inspection of chest normal Resp normal respiratory effort and clear to auscultation bilaterally Cardio regular rate and regular rhythm GI soft to palpation, non-tender, non-distended and no masses Narrative: Archuleta catheter in place with hematuria. Back/Spine normal ROM and normal to inspection Extremity normal to inspection and full ROM Neuro oriented x3, CN's II-XII intact bilaterally, moves all extremities, no focal motor deficits and no sensory deficits noted Sensorium / Orientation: awake and alert Psych mental status grossly normal and thought process normal Skin no rashes or lesions noted and no wounds <Dr. Geno Mancilla MD - Last Filed: 04/12/23 19:30> Physical Exam Const Vital Signs: 04/12/23 11:44 04/12/23 17:20 Temperature 97.8 F 18 F L Temperature Source Temporal Pulse Rate 81 82 Respiratory Rate 18 Blood Pressure 124/91 H Blood Pressure Mean 102 Pulse Ox 93 Oxygen Delivery Method Room Air MDM <MIRANDA Dsouza - Last Filed: 04/12/23 17:34> MDM MDM Narrative Medical decision making narrative: Patient presenting due to Archuleta catheter dysfunction that was replaced yesterday by Dr. Howard and after he left the office he began noticing urine leaking from his ureteral meatus. Nurses did attempt to irrigate the Archuleta here and did not meet much resistance, the Archuleta did seem to be draining better at that point. Patient was observed and urine began leaking again. Catheter was then replaced with a slightly bigger size and patient was observed. Patient seems to have good urine flow into his Archuleta bag, there has been no leaking from the ureteral meatus. UA obtained to rule out UTI and is positive, he will be started on Keflex with first dose here. He will be discharged home in stable condition and is comfortable plan. Lab Data Attestation: I reviewed the patient's lab results. Labs: Laboratory Results - last 24 hr 04/12/23 14:31 Urine Color Michelle Urine Clarity Sl. Cloudy Urine pH 8.0 Ur Specific [place] 1.010 Urine Protein 100 H Urine Glucose (UA) Normal Urine Ketones Negative Urine Occult Blood 250 H Urine Nitrite Negative Urine Bilirubin Negative Urine Urobilinogen Normal Ur Leukocyte Esterase 500 H Urine RBC 25-50 SEEN Urine WBC 25-50 SEEN Ur Squamous Epith Cells 0-5 SEEN Urine Bacteria 2+ Urine Mucus 0 SEEN <Dr. Geno Mancilla MD - Last Filed: 04/12/23 19:30> [facility] Lab Data Labs: Laboratory Results - last 24 hr 04/12/23 14:31 Urine Color Michelle Urine Clarity Sl. Cloudy Urine pH 8.0 Ur Specific [place] 1.010 Urine Protein 100 H Urine Glucose (UA) Normal Urine Ketones Negative Urine Occult Blood 250 H Urine Nitrite Negative Urine Bilirubin Negative Urine Urobilinogen Normal Ur Leukocyte Esterase 500 H Urine RBC 25-50 SEEN Urine WBC 25-50 SEEN Ur Squamous Epith Cells 0-5 SEEN Urine Bacteria 2+ Urine Mucus 0 SEEN Treatment and Re-Evaluation :: Patient seen and evaluated with SABINA. I personally interviewed and examined the patient. I was involved in all aspects of patient's orders, interpretation of results, and treatment. Patient presents due to leaking around his Archuleta catheter. He has longstanding Archuleta catheter placed but it was changed out in the office yesterday. Since that time he reports only a small amount of urine in the bag but states that he keeps getting urine leaking around the catheter. This started right after the catheter was changed yesterday. Patient lying in bed no acute distress. Head and neck examination unremarkable. Heart is regular rate and rhythm. Lung sounds are clear. Abdomen is soft and nontender. Archuleta catheter in position. Archuleta catheter was irrigated by nursing staff and did not note significant problems. In spite of this patient continues to have urine draining around the catheter. Due to this Archuleta catheter was exchanged. A larger sized coud? catheter was placed and nursing staff notes no difficulty with placement of the catheter. Once this is in place patient has a rather large amount of urine with some small clots that drains. His urinalysis does reveal evidence of infection and given that his catheter was just replaced yesterday we will go ahead and treat him with Keflex. Patient is to follow-up with Dr. Howard as an outpatient. Return instructions are given. Discharge Plan Triage Chief Complaint: Complaint ED Midlevel Provider: Erica Ortega ED Provider: Geno Mancilla Dx/Rx/DC Orders Clinical Impression: Archuleta catheter problem, Encounter for Archuleta catheter replacement, Acute UTI Instructions: ED Bladder Infection, Male (Adult) Prescriptions: New cephalexin 500 mg capsule 500 mg PO Q6 7 Days Qty: 27 0RF No Action furosemide [Lasix] 40 MG tablet 20 mg PO DAILY ascorbic acid (vitamin C) [Vitamin C] 1,000 MG tablet 1,000 mg PO DAILY isosorbide mononitrate 60 MG tablet 60 mg PO BID omeprazole 20 MG capsule 20 mg PO DAILY atenolol 50 MG tablet 50 mg PO QHS cholecalciferol (vitamin D3) [Vitamin D3] 2,000 UNIT capsule 2,000 unit PO DAILY atorvastatin 40 MG tablet 40 mg PO QHS coenzyme Q10 100 MG capsule 200 mg PO DAILY Acidophilus Capsule 100 mg PO DAILY aspirin 81 mg Capsule 81 mg PO DAILY Hold Instructions: Resume on 10/25/21. Label Comments: LAST DOSE 10/05/21 polyethylene glycol 3350 17 GM powder in packet 17 gm PO PRN PRN (Reason: Constipation) losartan 50 mg Tablet 50 mg PO QHS Qty: 30 0RF nitrofurantoin monohyd/m-cryst 100 mg Capsule 100 mg PO BIDCM 4 Days Qty: 8 0RF ferrous sulfate 325 mg (65 mg iron) tablet 325 mg PO DAILY 14 Days Qty: 14 0RF bisacodyl [Dulcolax (bisacodyl)] 5 mg tablet,delayed release (DR/EC) 5 mg PO DAILY PRN (Reason: constipation) 2 Days Qty: 2 0RF Primary Care Provider: Mauricio Salcido Referrals: Mauricio Salcido, [Primary Care Provider] - 3-5 Days Activity Restrictions/Additional Instructions: Please follow-up with your PCP and return for any worsening of symptoms. Take antibiotics as directed Disposition Disposition: Home, Self Care Discharge Date/Time: 04/12/23 17:27
[2023-04-12 14:35] LABS: Mucous, Urine 0 SEEN /hpf (<or=2+)
[2023-04-12 14:37] LABS: Color, Urine Amber (Yellow); Glucose, Dipstick Normal (Normal); Ketone-Dipstick Negative (Negative); Leukocyte Esterase-Dipstick 500 /ul (Negative); Nitrite-Dipstick Negative (Negative); Occult Blood-Urine 250 /ul (Negative); Protein-Dipstick 100 mg/dl (Negative); Urine Bilirubin Dipstick Negative (Negative); Urine Clarity Sl. Cloudy (Clear); Urine Urobilinogen Normal (Normal)
[2023-04-12 14:46] LABS: Bacteria 2+ /hpf (None Seen); Red Blood Cells-Urine 25-50 SEEN /hpf (0-5); Squamous Epithelial Cells - UA 0-5 SEEN /hpf (0-5); White Blood Cells 25-50 SEEN /hpf (0-5)
[2023-04-12] MEDS: Cephalexin 250 MG Capsule 500 MG PO (17:17)
[2023-04-12 17:20] VITALS: PULSE 82; TEMP -7.7; TEMP 18
== END 2023-04-12 17:27 | disposition home or self-care (01) ==
PROVIDERS: Physician Assistant; Emergency Provider Emergency Medicine; PCP Family Medicine; Visit Provider Emergency Medicine
DX: N39.0 Urinary tract infection, site not specified (principal); T83.018A Breakdown (mechanical) of other urinary catheter, initial encounter; I50.22 Chronic systolic (congestive) heart failure; I11.0 Hypertensive heart disease with heart failure; Z87.891 Personal history of nicotine dependence; I25.10 Atherosclerotic heart disease of native coronary artery without angina pectoris; E78.00 Pure hypercholesterolemia, unspecified; Z85.46 Personal history of malignant neoplasm of prostate; Z99.89 Dependence on other enabling machines and devices; I25.2 Old myocardial infarction; Z79.899 Other long term (current) drug therapy; K21.9 Gastro-esophageal reflux disease without esophagitis; Z79.82 Long term (current) use of aspirin; Z95.5 Presence of coronary angioplasty implant and graft; Z90.49 Acquired absence of other specified parts of digestive tract; Z95.1 Presence of aortocoronary bypass graft; Z96.659 Presence of unspecified artificial knee joint
CPT/HCPCS: 51702; 81001; 99284